=== PATIENT | female | born 1950 | race Caucasian/White ===

== ENCOUNTER → 2018-01-27 10:19 | Outpatient (CLI) | payer MEDICARE, SELFPAY ==
--- NOTE | 2018-01-27 10:26 | RAD_ITS ---
STUDY: X-RAY - LEFT KNEE REASON FOR EXAM: Female, 67 years old. POSTERIOR BAKERS CYST PER PT, NKI, PAIN TECHNIQUE: 4 view(s) of the knee. COMPARISON: None. FINDINGS: Normal visualized distal femur. Normal visualized proximal tibia and fibula. Normal proximal tibiofibular articulation. 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 There is mild degenerative arthrosis of the lateral femorotibial compartment. There is mild degenerative arthrosis of the patellofemoral articulation. The soft tissue structures are unremarkable. RAD/Knee 4 or More Views IMPRESSION: Degenerative arthrosis. Electronically Signed: Alexsander Nails MD at 19:20 EDT , Service support ,
--- NOTE | 2018-01-27 10:26 | RAD_ITS ---
STUDY: X-RAY - LEFT TIBIA AND FIBULA REASON FOR EXAM: Female, 67 years old. Pain TECHNIQUE: 2 view(s) of the tibia and fibula were obtained. COMPARISON: None. FINDINGS: Normal visualized tibia. Normal visualized fibula. Degenerative arthrosis in the knee joint. Calcaneal spurs The soft tissue structures are unremarkable. RAD/Tibia & Fibula 2 Views IMPRESSION: No demonstrated fracture or suspicious osseous lesion Electronically Signed: Kapil Renner MD at 11:21 EDT , Service support ,
--- NOTE | 2018-01-27 10:26 | RAD_ITS ---
STUDY: X-RAY - LEFT ANKLE REASON FOR EXAM: Female, 67 years old. ANTERIOR AND MEDIAL PAIN, NKI TECHNIQUE: 3 view(s) of the ankle. COMPARISON: None. FINDINGS: Normal visualized distal tibia and fibula. Normal medial and lateral malleoli. Normal tibiotalar articulation and ankle mortise. There is a calcaneal spur. The visualized subtalar, talonavicular, calcaneocuboid and tarsal articulations are normal. There is soft tissue swelling around the ankle. RAD/Ankle min 3 Views IMPRESSION: There is a calcaneal spur. There is soft tissue swelling around the ankle. Electronically Signed: Alexsander Nails MD at 17:31 EDT , Service support ,
[2018-01-27 12:20] LABS: Absolute Lymphocyte Count 1.54 X10^3/ul (0.83-4.51); Absolute Neutrophil Count 3.2 X10^3/uL (2.0-7.7); Basophil# 0.03 X10^3/uL; Basophil% 0.5 % (0-1); Eosinophil# 0.23 X10^3/uL; Eosinophils% 4.2 % (0-5); Hematocrit 43.4 % (37-47); Hemoglobin 14.4 g/dl (12.0-15.0); Lymphocyte # 1.54 X10^3/ul (4.0); Lymphocyte % 28.1 % (19-41); Mean Corp Hgb Conc 33.2 g/gl (32-36); Mean Corpuscular Hgb 29.9 pg (27.0-32.0); Mean Corpuscular Volume 90.2 fL (81-99); Mean Platelet Vol. 10.5 fl (6.2-12.0); Monocyte# 0.45 X10^3/uL; Monocyte% 8.2 % (0-10); Neutrophil # 3.22 X10^3/uL (2.7-7.7); Neutrophil % 58.6 % (47-70); Platelet Count 184 K/mm3 (150-450); RBC Distribution Width CV 14.8 % (11.6-14.6); RBC Distribution Width SD 48.2 fl (35.1-43.9); Red Blood Count 4.81 M/mm3 (4.2-5.4); White Blood Count 5.5 K/mm3 (4.4-11.0)
[2018-01-27 12:21] LABS: POSITIVE COUNT NO; POSITIVE DIFFERENTIAL NO; POSITIVE MORPHOLOGY NO
[2018-01-27 12:45] LABS: D-Dimer Quantitative (DVT/PE) 0.72 FEU/ug/m (0.27-0.49)
[2018-01-27 12:55] LABS: ALB/GLOB Ratio 1.2 RATIO (0.9-2.4); AST(SGOT) 24 U/L (15-37); Alanine Aminotransfer ALT/SGPT 33 U/L (13-56); Albumin, Serum 4.1 g/dL (3.2-5.0); Alkaline Phosphatase 97 U/L (45-117); Anion Gap 9 (5-15); BUN 18 mg/dL (7-18); BUN/Creat Ratio 21.7 RATIO (10-20); Calcium,Total 9.3 mg/dL (8.5-10.1); Chloride 106 mmol/L (98-107); Cholesterol 156 mg/dL (200); Creatinine, Serum 0.83 mg/dL (0.55-1.02); EST Glomerular Filtration Rate 73 mL/min (>60); Est Glom Filt Rate - Afr Amer 88 mL/min (>60); Globulin 3.5 g/dL (2.2-4.2); Glucose 86 mg/dL (74-106); High Density Lipoprotein 37 mg/dL; Potassium 4.4 mmol/L (3.5-5.1); Protein, Total 7.6 g/dL (6.4-8.2); Sodium Level 140 mmol/L (136-145); Triglycerides 187 mg/dL; Very Low Density Lipoprotein 37 mg/dL (5-40)
[2018-01-28 16:10] LABS: Alkaline Phosphatase, Serum 88 IU/L (39-117); Bone Fraction 61 % (14-68); Liver Fraction 27 % (18-85)
[2018-01-29 11:12] LABS: Intestinal Fraction 12 % (0-18)
== END ==
PROVIDERS: Family Provider Family Medicine; PCP Family Medicine; Visit Provider Family Medicine
DX: M25.562 Pain in left knee (principal); M25.572 Pain in left ankle and joints of left foot; M79.605 Pain in left leg; R60.9 Edema, unspecified; I10 Essential (primary) hypertension; R74.8 Abnormal levels of other serum enzymes
CPT/HCPCS: 36415; 73564; 73590; 73610; 80053; 80061; 84075; 84080; 85025; 85379

== ENCOUNTER → 2018-01-27 15:22 | Outpatient (CLI) | payer MEDICARE, SELFPAY ==
--- NOTE | 2018-01-27 15:33 | VDLE_ITS ---
Reason For Study: ELEVATED D DIMER Procedure LEFT Exam performed in department. CFV is compressible, spontaneous, phasic, A preliminary report was called and/or competent, and demonstrates normal faxed to Dr Dexter. augmentation. FV is compressible, spontaneous, phasic, competent and demonstrates normal augmentation. POP V is compressible, spontaneous, phasic, competent and demonstrates normal augmentation. T/P Trunk is compressible. PTV is compressible. LT PerV is compressible. Left GSV has been ablated above the knee. Left GSV below knee is compressible . Left leg varicosities are partially compressible with residual thrombophlebitis present. Interpretation Summary Deep veins of the left lower extremity are patent and compressible segmentally. There is no evidence of left lower extremity deep vein thrombosis. Valvular competence appears intact within the proximal deep venous system on the left . The left great saphenous vein is absent above the knee, consistent with a prior endothermal abation procedure. The left great saphenous vein is patent and compressible below the knee. Chronic venous changes are noted in superficial varicosities in the left lower extremity. Ordering Physician: Dashawn Dexter Referring Physician: Dashawn Dexter Performed By: Kristina Fong, ANGE, RVT
== END ==
PROVIDERS: Family Provider Family Medicine; PCP Family Medicine; Visit Provider Family Medicine
DX: M79.605 Pain in left leg (principal); R79.89 Other specified abnormal findings of blood chemistry; M25.562 Pain in left knee; M25.572 Pain in left ankle and joints of left foot; R60.9 Edema, unspecified; I10 Essential (primary) hypertension; R74.8 Abnormal levels of other serum enzymes
CPT/HCPCS: 36415; 73564; 73590; 73610; 80053; 80061; 84075; 84080; 85025; 85379; 93971

== ENCOUNTER → 2018-07-20 07:33 | Outpatient (CLI) | payer MEDICARE, SELFPAY ==
[2017-12-16 09:14] VITALS: BMI 29.5
--- NOTE | 2018-07-20 07:50 | RAD_ITS ---
STUDY: X-RAY CHEST REASON FOR EXAM: Female, 67 years old. Cough for 2 months. TECHNIQUE: PA and lateral views of the chest. COMPARISON: CT of the chest, December 06, 2015. Chest, October 08, 2015. FINDINGS: The lungs are mildly hyperexpanded. There is a stable small calcified granuloma in the periphery of the right lung. No new masses or infiltrates are present. There is no demonstrated pleural abnormality. Normal size heart. Normal mediastinum and tobias. Normal visualized pulmonary arteries. Normal visualized aortic arch and descending thoracic aorta. Normal visualized thoracic spine. Normal visualized ribs, clavicles, and shoulders. There is no demonstrated abnormality of the visualized soft tissue structures of the upper abdomen. RAD/Chest PA and Lateral IMPRESSION: Old granulomatous disease without acute cardiopulmonary process or major interval change. Electronically Signed: Best Jon DO at 17:29 EST Tel [phone], Service support ,
[2018-07-20 10:49] LABS: Absolute Neutrophil Count 3.9 X10^3/uL (2.0-7.7); Basophil# 0.08 X10^3/uL; Basophil% 1.1 % (0-1); Eosinophils% 5.4 % (0-5); Hematocrit 43.5 % (37-47); Hemoglobin 14.2 g/dl (12.0-15.0); Lymphocyte % 33.6 % (19-41); Mean Corp Hgb Conc 32.6 g/gl (32-36); Mean Corpuscular Hgb 29.9 pg (27.0-32.0); Mean Corpuscular Volume 91.6 fL (81-99); Mean Platelet Vol. 10.7 fl (6.2-12.0); Monocyte# 0.53 X10^3/uL; Monocyte% 7.1 % (0-10); Neutrophil % 52.5 % (47-70); POSITIVE COUNT NO; POSITIVE DIFFERENTIAL NO; POSITIVE MORPHOLOGY NO; Platelet Count 206 K/mm3 (150-450); RBC Distribution Width CV 14.8 % (11.6-14.6); RBC Distribution Width SD 48.7 fl (35.1-43.9); Red Blood Count 4.75 M/mm3 (4.2-5.4); White Blood Count 7.4 K/mm3 (4.4-11.0)
[2018-07-20 11:08] LABS: ALB/GLOB Ratio 1.1 RATIO (0.9-2.4); AST(SGOT) 21 U/L (15-37); Alanine Aminotransfer ALT/SGPT 32 U/L (13-56); Albumin, Serum 3.7 g/dL (3.2-5.0); Alkaline Phosphatase 91 U/L (45-117); Anion Gap 7 (5-15); BUN 14 mg/dL (7-18); BUN/Creat Ratio 16.1 RATIO (10-20); Calcium,Total 8.8 mg/dL (8.5-10.1); Chloride 106 mmol/L (98-107); Creatinine, Serum 0.87 mg/dL (0.55-1.02); EST Glomerular Filtration Rate 68 mL/min (>60); Est Glom Filt Rate - Afr Amer 83 mL/min (>60); Globulin 3.5 g/dL (2.2-4.2); Glucose 112 mg/dL (74-106); Potassium 4.2 mmol/L (3.5-5.1); Protein, Total 7.2 g/dL (6.4-8.2); Sodium Level 143 mmol/L (136-145)
--- OUTSIDE RECORDS SUMMARY | 2018-09-05 05:38 | XMS RPT_ITS ---
:1950 Author Organization OHIP Care Team Providers Name Role Phone Ivan Dexter Attending Unavailable Ivan Dexter Referring Unavailable Ivan Dexter Primary Care Unavailable Ivan Dexter Attending Unavailable Ivan Dexter Referring Unavailable Ivan Dexter Primary Care Unavailable Ivan eDxter Attending Unavailable Ivan Dexter Referring Unavailable Ivan Dexter Primary Care Unavailable Nguyen Kincaid D.C. Attending Unavailable Ivan Dexter Referring Unavailable Ivan Dexter Primary Care Unavailable Nguyen Kincaid D.C. Attending Unavailable Ivan Dexter Referring Unavailable Nguyen Kincaid D.C. Attending Unavailable Ivan Dexter Referring Unavailable Ivan Dexter Primary Care Unavailable Nguyen Kincaid D.C. Attending Unavailable Ivan Dexter Referring Unavailable Ivan Dexter Primary Care Unavailable DossiNguyen ribera D.C. Attending Unavailable Ivan Dexter Referring Unavailable Ivan Dexter Primary Care Unavailable PROBLEMS PROBLEMS DATE TYPE CONDITION / CODE ATTENDING STATUS SOURCE 07/20/2018 Unknown R05 - Cough / Ivan Dexter Active [facility] R05(ICD-10[facility] Rep[facility] 07/20/2018 Unknown R06.00 - Dyspnea, Ivan Dexter Active [facility] unspecified / Community R06.00(ICD-10) Hospital Repository 07/20/2018 Unknown R74.8 - Abnormal Ivan Dexter [facility] levels of other Community serum enzymes / Hospital R74.8(ICD-10) Repository 01/27/2018 Unknown M25.562 - Pain in Ivan Dexter [facility] left knee / Community M25.562(ICD-10) Hospital Repository 01/27/2018 Unknown M25.572 - Pain in Ivan Dexter Active [facility] left ankle and Community joints of left foot Hospital / M25.572(ICD-10) Repository 01/27/2018 Unknown M79.605 - Pain in Ivan Dexter Active [facility] left leg / Community M79.605(ICD-10) Hospital Repository 01/27/2018 Unknown R60.9 - Edema, Ivan Dexter Active [facility] unspecified / Community R60.9(ICD-10) Hospital Repository 01/27/2018 Unknown I10 - Essential Ivan Dexter [facility] (primary) Community hypertension / Hospital I10(ICD-10) Repository 12/17/2017 Unknown M99.05 - Segmental Dossie, Nguyen Active [facility] and somatic [facility] Community dysfunction of Hospital pelvic region / Repository M99.05(ICD-10) 12/17/2017 Unknown M99.01 - Segmental Dossie, Nguyen Active [facility] and somatic [facility] dysfunction of Hospital cervical region / Repository M99.01(ICD-10) 12/17/2017 Unknown M99.02 - Segmental Dossie, Nguyen Active [facility] and somatic [facility] dysfunction of Hospital thoracic region / Repository M99.02(ICD-10) 12/17/2017 Unknown M99.03 - Segmental DossieNguyen Active [facility] and somatic [facility] dysfunction of Hospital lumbar region / Repository M99.03(ICD-10) 12/17/2017 Unknown M51.36 - Other Dossie, Nguyen Active [facility] intervertebral disc [facility] degeneration, [facility][1] region / Repository M51.36(ICD-10) PROCEDURES PROCEDURES No Procedure Records FoundRESULTS RESULTS CBC W/DIFF, AUTOMATED Collected: 07/20/2018 Status: F Source: [place] 7:39 AM [facility] REPOSITORY TYPE CODE TESTS RESULT OUT OF RANGE REFERENCE UNITS LAB L100.1000 4.4-11.0 K/mm3 Normal WBC 7.4 LAB L100.1200 4.2-5.4 M/mm3 Normal RBC 4.75 LAB L100.1300 12.0-15.0 g/dl Normal HGB 14.2 LAB L100.1400 37-47 % Normal HCT 43.5 LAB L100.1500 81-99 fL Normal MCV 91.6 LAB L100.1600 27.0-32.0 pg Normal MCH 29.9 LAB L100.1700 32-36 g/gl Normal MCHC 32.6 LAB L100.1810 11.6-14.6 % High RDW CV 14.8 LAB L100.1820 35.1-43.9 fl High RDW SD 48.7 LAB L100.1900 150-450 K/mm3 Normal PLT 206 LAB L100.2000 6.2-12.0 fl Normal MPV 10.7 LAB L100.2100 47-70 % Normal NEUT% 52.5 LAB L100.2200 19-41 % Normal LY% 33.6 LAB L100.2300 0-10 % Normal MONO% 7.1 LAB L100.2400 0-5 % High EO% 5.4 LAB L100.2500 0-1 % High BASO% 1.1 LAB L100.2550 0.0-0.9 % Normal IM GRAN % 0.300 Result Comment: IG% - Immature Granulocytes (promyelocytes, myelocytes and metamyelocytes) > 1% indicates that a LEFT SHIFT is Present. LAB L100.2620 2.0-7.7 X10 3/uL Normal Absolute Neut 3.9 LAB L100.2720 0.83-4.51 X10 3/ul Normal Absolute Lymph 2.50 Performed By: #### L100.0100 #### [facility] [address] [place], [address] COMPREHENSIVE METABOLIC Collected: 07/20/2018 Status: F Source: [place] REDD 7:39 AM [facility] REPOSITORY TYPE CODE TESTS RESULT OUT OF RANGE REFERENCE UNITS LAB L501.0100 74-106 mg/dL High GLU 112 Result Comment: Fasting Glucose result from 100 to 125 mg/dL suggests IMPAIRED HOMEOSTASIS per A.D.A. criteria. Please note revised GLUCOSE reference range effective 2017. LAB L501.1000 7-18 mg/dL Normal BUN 14 LAB L501.1100 0.55-1.02 mg/dL Normal CREAT,SERUM 0.87 Result Comment: The validity of the calculated GFR AND GFRAA in patients over 70 years has not been determined. Clinical correlation is essential. LAB L501.1110 >60 mL/min Normal EST GFR 68 Result Comment: Non- GFR Calc LAB L501.1115 >60 mL/min Normal EST GFR - AA 83 Result Comment: GFR Calc LAB L501.1300 10-20 RATIO Normal BUN/CRE 16.1 LAB L501.1500 6.4-8.2 g/dL T Normal PROT 7.2 LAB L501.1800 3.2-5.0 g/dL Normal ALB 3.7 LAB L501.1950 2.2-4.2 g/dL Normal GLOB 3.5 LAB L501.2000 0.9-2.4 RATIO Normal A/G 1.1 LAB L501.2200 8.5-10.1 mg/dL CA Normal 8.8 LAB L501.4100 15-37 U/L Normal AST 21 LAB L501.4305 45-117 U/L Normal ALK P 91 LAB L501.4405 13-56 U/L Normal ALT 32 LAB L501.4600 0.20-1.00 mg/dL T Normal BILI 0.90 LAB L501.5300 136-145 mmol/L NA Normal 143 LAB L501.5600 3.5-5.1 mmol/L K Normal 4.2 LAB L501.5900 98-107 mmol/L CL Normal 106 LAB L501.6100 21.0-32.0 mmol/L Normal CO2 30.0 LAB L501.6200 5-15 Normal GAP 7 Performed By: #### L500.4050 #### [facility] [address] [place], [address] Observed: 07/20/2018 Status: F Source: [place] CULTURE, SPUTUM 7:39 AM [facility] REPOSITORY Gram Stain Gram Stain 3+ Gram positive rods 2+ Gram positive cocci 1+ Epithelial cells Resp. Culture Mixed normal respiratory armin. No Streptococcus pneumoniae, beta-hemolytic Streptococcus or Staphylococcus aureus isolated. Performed By: #### M100.0800 #### [facility] [address] [facility] [place], [address] CHEST PA AND LATERAL Observed: 07/20/2018 Status: F Source: [place] 7:36 AM [facility] REPOSITORY [facility] Imaging Services [address] [place] [address] Chest PA and Lateral MR#: [id number] Acct: [id number] Name: JOSSTOMEKA Tiffany Rep #: [id number] : 1950 F 67 From: Best Jon DO PCP: Ivan Dexter DO Status: REG CLI Study: Chest PA and Lateral Date of Exam: 07/20/18 Exam# [id number] Ordering Dr: Ivan Dexter DO STUDY: X-RAY CHEST REASON FOR EXAM: Female, 67 years old. Cough for 2 months. TECHNIQUE: PA and lateral views of the chest. COMPARISON: CT of the chest, December 06, 2015. Chest, October 08, 2015. FINDINGS: The lungs are mildly hyperexpanded. There is a stable small calcified granuloma in the periphery of the right lung. No new masses or infiltrates are present. There is no demonstrated pleural abnormality. Normal size heart. Normal mediastinum and tobias. Normal visualized pulmonary arteries. Normal visualized aortic arch and descending thoracic aorta. Normal visualized thoracic spine. Normal visualized ribs, clavicles, and shoulders. There is no demonstrated abnormality of the visualized soft tissue structures of the upper abdomen. RAD/Chest PA and Lateral IMPRESSION: Old granulomatous disease without acute cardiopulmonary process or major interval change. Electronically Signed: Best Jon DO at 17:29 EST Tel [phone], Service support , CC: Ivan Dexter DO Hardwood Floor Installer: Signed PROGRESS Observed: 03/29/2018 Status: COMPLETED Source: [place] 6:32 PM [facility] REPOSITORY HNO ID: [id number] Author: Mina Allen (Anju) Misael Service: (none) Author Type: Nurse Practitioner Type: Progress Notes Filed: 03/29/2018 6:37 PM Note Text: Subjective HPI Patient presents with: Rash: under breast, abdominal area and legs, itching and burning x 1 week Denies known yard work. Denies changes to soaps, detergents, lotions, perfumes, new medications, or exposures to known allergens. Rubbing alcohol and pink suave otc with no relief. ROS All other reviewed and negative other than HPI. PAST MEDICAL HISTORY Diagnosis Date - Abdominal pain, generalized right and left side in center - Abdominal pain, left lower quadrant - Diverticulosis of colon (without mention of hemorrhage) - Internal hemorrhoids without mention of complication - Ventral hernia with obstruction PAST SURGICAL HISTORY Procedure Laterality Date - APPENDECTOMY - COLONOSCOP W/ OR W/O [facility] SPEC 01/26/08 - CORRECT BUNION,OTHR METHODS X'S 2 - LIGATE FALLOPIAN TUBE Tubal ligation - REMOVAL OF OVARY(S) Oophorectomy - REPAIR EPIGASTRIC HERNIA,CRISTINE 07/01/2005 - REPAIR INCIS HERNIA W MESH 07/01/2005 ALLERGIES Augmentin [Amoxicillin-Pot Clavulanate]; Biaxin [Clarithromycin]; Vancomycin MEDICATIONS loratadine(CLARITIN 10 MG TAB) Take one(1) tablet daily as needed for allergy symptoms. TOPROL XL 50 MG 24 HR TAB Take one(1) tablet daily. nystatin (MYCOSTATIN) cream Use four times daily as needed. triamcinolone acetonide (KENALOG) 0.1 % cream Apply 1 application to affected area three times daily for 10 days. Apply sparingly to area for rash/itching. FAMILY HISTORY Problem Relation Age of Onset - Alcohol/Drug Father - Heart Father - Hypertension Mother - Stroke Mother Social History Substance Use Topics - Smoking status: Never Smoker - Smokeless tobacco: Never Used - Alcohol use Yes Comment: 1 BEER Q WEEK Objective Physical Exam Skin: Nursing note and vitals reviewed. ASSESSMENT/PLAN: 1. Rash - ICD9: 782.1, ICD10: R21 -suspect 2 different rashes -Skin yeast and contact dermatitis -Nystatin -Triamcinolone cream -F/u with pcp in 3-5 days or sooner if symptoms are not improving or worsening Prescription instructions reviewed with patient as applicable. Patient advised if symptoms do not improve or if symptoms worsen sooner, to contact their primary care physician. Potential red flag symptoms discussed with the patient. Reviewed appropriate action plan to take if red flag symptoms occur. Patient agreeable to treatment plan. Mina Corrigan APRN.CRULLER MAKER MACHINE CNOV Observed: 03/29/2018 Status: COMPLETED Source: [place] 6:15 PM [facility] REPOSITORY Office Visit (WSTR) TOMEKA COREAS ([id number]) 1950 F Date Time Provider Department 03/29/18 6:15 PM MINA CORRIGAN (ARMOR OFFICER) [facility] During your visit today, we recorded the following information about you: Temperature Pulse Respiration Blood pressure 97.7 degrees 76/minute 16/minute 120/76 Weight 81.2 kg Mina Corrigan APRN.CRULLER MAKER MACHINE 03/29/2018 6:37 PM Signed Subjective HPI Patient presents with: Rash: under breast, abdominal area and legs, itching and burning x 1 week Denies known yard work. Denies changes to soaps, detergents, lotions, perfumes, new medications, or exposures to known allergens. Rubbing alcohol and pink suave otc with no relief. ROS All other reviewed and negative other than HPI. PAST MEDICAL HISTORY Diagnosis Date - Abdominal pain, generalized right and left side in center - Abdominal pain, left lower quadrant - Diverticulosis of colon (without mention of hemorrhage) - Internal hemorrhoids without mention of complication - Ventral hernia with obstruction PAST SURGICAL HISTORY Procedure Laterality Date - APPENDECTOMY - COLONOSCOP W/ OR W/O [facility] SPEC 01/26/08 - CORRECT BUNION,OTHR METHODS X'S 2 - LIGATE FALLOPIAN TUBE Tubal ligation - REMOVAL OF OVARY(S) Oophorectomy - REPAIR EPIGASTRIC HERNIA,CRISTINE 07/01/2005 - REPAIR INCIS HERNIA W MESH 07/01/2005 ALLERGIES Augmentin [Amoxicillin-Pot Clavulanate]; Biaxin [Clarithromycin]; Vancomycin MEDICATIONS loratadine(CLARITIN 10 MG TAB) Take one(1) tablet daily as needed for allergy symptoms. TOPROL XL 50 MG 24 HR TAB Take one(1) tablet daily. nystatin (MYCOSTATIN) cream Use four times daily as needed. triamcinolone acetonide (KENALOG) 0.1 % cream Apply 1 application to affected area three times daily for 10 days. Apply sparingly to area for rash/itching. FAMILY HISTORY Problem Relation Age of Onset - Alcohol/Drug Father - Heart Father - Hypertension Mother - Stroke Mother Social History Substance Use Topics - Smoking status: Never Smoker - Smokeless tobacco: Never Used - Alcohol use Yes Comment: 1 BEER Q WEEK Objective Physical Exam Skin: Nursing note and vitals reviewed. ASSESSMENT/PLAN: 1. Rash - ICD9: 782.1, ICD10: R21 -suspect 2 different rashes -Skin yeast and contact dermatitis -Nystatin -Triamcinolone cream -F/u with pcp in 3-5 days or sooner if symptoms are not improving or worsening Prescription instructions reviewed with patient as applicable. Patient advised if symptoms do not improve or if symptoms worsen sooner, to contact their primary care physician. Potential red flag symptoms discussed with the patient. Reviewed appropriate action plan to take if red flag symptoms occur. Patient agreeable to treatment plan. Mina Corrigan APRN.CRULLER MAKER MACHINE Referring Provider: SELF [200] Allergies As of Date: 03/29/2018 Noted Allergy Reaction AUGMENTIN (AMOXICILLIN-POT CLAVUL*06/27/2005 BIAXIN (CLARITHROMYCIN) 11/29/2013 4 - Hives VANCOMYCIN 11/29/2013 9 - Itching Date Reviewed: 03/29/2018 Reviewed by: Liya Soria Ma - Fully Assessed Reason for Visit: Rash [1087] Cmt: under breast, abdominal area and legs, itching and burning x 1 week Primary Visit Diagnosis:Rash [R21] Order(s):nystatin (MYCOSTATIN) creamUse four times daily as needed.Disp: 30 gRfl: 0 triamcinolone acetonide (KENALOG) 0.1 % creamApply 1 application to affected area three times daily for 10 days. Apply sparingly to area for rash/itching.Disp: 60 gRfl: 0 Prescriptions as of 03/29/2018 Sig: * CLARITIN 10 MG TABLET Take one(1) tablet daily as n* * TOPROL XL 50 MG TABLET,EXTEND* Take one(1) tablet daily. NYSTATIN 100,000 UNIT/GRAM TO* Use four times daily as neede* TRIAMCINOLONE ACETONIDE 0.1 %* Apply 1 application to affect* Problem List As Of Date 03/29/2018 Noted Resolved VENTRAL HERNIA, RECURRENT W/O GANGRENE/OBSTRUCT*INVALID FOR* ABDOMINAL PAIN GENERALIZED [R10.84] INVALID FOR* Prescriptions ordered this encounter Disp Refills Start End NYSTATIN 100,000 UNIT/GRAM TOPICAL C* 30 g 0 03/29/2018 Sig: Use four times daily as needed. TRIAMCINOLONE ACETONIDE 0.1 % TOPICA* 60 g 0 03/29/2018 04/08/2018 Route: TOPICAL Sig: Apply 1 application to affected area three times daily for 10 days. Apply sparingly to area for rash/itching. Disposition: Return if symptoms worsen or fail to improve. Follow-up and Disposition History Recorded Encounter Status:Closed by MINA CORRIGAN on 03/29/18 VENOUS DUPLEX LOWER Observed: 02/04/2018 Status: F Source: [place] EXTREMITY 9:51 AM [facility] REPOSITORY [facility] Cardiovascular Services [address] [place] [address] Venous Duplex US, Unilateral 01/27/18 1536 MR#: [id number] Acct: [id number] Name: TOMEKA COREAS Rep #: [id number] : 1950 67 From: rPamod Peralta MD Attending Dr: Ivan Dexter DO Status: REG CLI Ordering Dr: Ivan Dexter DO Date: 01/27/18 Location: [facility] Sex: F C Admitted: Reason For Study: ELEVATED D DIMER Procedure LEFT Exam performed in department. CFV is compressible, spontaneous, phasic, A preliminary report was called and/or competent, and demonstrates normal faxed to Dr Dexter. augmentation. FV is compressible, spontaneous, phasic, competent and demonstrates normal augmentation. POP V is compressible, spontaneous, phasic, competent and demonstrates normal augmentation. T/P Trunk is compressible. PTV is compressible. LT PerV is compressible. Left GSV has been ablated above the knee. Left GSV below knee is compressible . Left leg varicosities are partially compressible with residual thrombophlebitis present. Interpretation Summary Deep veins of the left lower extremity are patent and compressible segmentally. There is no evidence of left lower extremity deep vein thrombosis. Valvular competence appears intact within the proximal deep venous system on the left . The left great saphenous vein is absent above the knee, consistent with a prior endothermal abation procedure. The left great saphenous vein is patent and compressible below the knee. Chronic venous changes are noted in superficial varicosities in the left lower extremity. Ordering Physician: Ivan Dexter Referring Physician: Ivan Dexter Performed By: Kristina Fong, ROMINACS, RVT 02/04/18 0951 Date Pramod Peralta MD CC: vIan Dexter; Ivan Dexter DO Date Dictated: 01/27/18 1536 Date Transcribed: 02/04/18 0951 Hardwood Floor Installer: Signed CBC W/DIFF, AUTOMATED Collected: 01/27/2018 Status: F Source: [place] 10:29 AM [facility] REPOSITORY TYPE CODE TESTS RESULT OUT OF RANGE REFERENCE UNITS LAB L100.1000 4.4-11.0 K/mm3 Normal WBC 5.5 LAB L100.1200 4.2-5.4 M/mm3 Normal RBC 4.81 LAB L100.1300 12.0-15.0 g/dl Normal HGB 14.4 LAB L100.1400 37-47 % Normal HCT 43.4 LAB L100.1500 81-99 fL Normal MCV 90.2 LAB L100.1600 27.0-32.0 pg Normal MCH 29.9 LAB L100.1700 32-36 g/gl Normal MCHC 33.2 LAB L100.1810 11.6-14.6 % High RDW CV 14.8 LAB L100.1820 35.1-43.9 fl High RDW SD 48.2 LAB L100.1900 150-450 K/mm3 Normal PLT 184 LAB L100.2000 6.2-12.0 fl Normal MPV 10.5 LAB L100.2100 47-70 % Normal NEUT% 58.6 LAB L100.2200 19-41 % Normal LY% 28.1 LAB L100.2300 0-10 % Normal MONO% 8.2 LAB L100.2400 0-5 % Normal EO% 4.2 LAB L100.2500 0-1 % Normal BASO% 0.5 LAB L100.2550 0.0-0.9 % Normal IM GRAN % 0.400 Result Comment: IG% - Immature Granulocytes (promyelocytes, myelocytes and metamyelocytes) > 1% indicates that a LEFT SHIFT is Present. LAB L100.2620 2.0-7.7 X10 3/uL Normal Absolute Neut 3.2 LAB L100.2720 0.83-4.51 X10 3/ul Normal Absolute Lymph 1.54 Performed By: #### L100.0100 #### [facility] [address] [place], [place], [address] D-DIMER QUANTITATIVE Collected: 01/27/2018 Status: F Source: [place] (DVT/PE) 10:29 AM [facility] REPOSITORY TYPE CODE TESTS RESULT OUT OF RANGE REFERENCE UNITS LAB L300.8000 0.27-0.49 FEU/ug/m High alert D-DIMER 0.72 QUANT Result Comment: D-Dimer ELEVATED (>0.49): Additional studies and clinical assessments are indicated to conclude diagnosis of: Deep Vein Thrombosis (DVT) or Pulmonary Embolism (PE) Performed By: #### L300.8000 #### [facility] [address] [place], [address] COMPREHENSIVE METABOLIC Collected: 01/27/2018 Status: F Source: [place] [facility] 10:29 AM [facility] REPOSITORY TYPE CODE TESTS RESULT OUT OF RANGE REFERENCE UNITS LAB L501.0100 74-106 mg/dL Normal GLU 86 Result Comment: Please note revised GLUCOSE reference range effective 2017. LAB L501.1000 7-18 mg/dL Normal BUN 18 LAB L501.1100 0.55-1.02 mg/dL Normal CREAT,SERUM 0.83 Result Comment: The validity of the calculated GFR AND GFRAA in patients over 70 years has not been determined. Clinical correlation is essential. LAB L501.1110 >60 mL/min Normal EST GFR 73 Result Comment: Non- GFR Calc LAB L501.1115 >60 mL/min Normal EST GFR - AA 88 Result Comment: GFR Calc LAB L501.1300 10-20 RATIO High BUN/CRE 21.7 LAB L501.1500 6.4-8.2 g/dL T Normal PROT 7.6 LAB L501.1800 3.2-5.0 g/dL Normal ALB 4.1 LAB L501.1950 2.2-4.2 g/dL Normal GLOB 3.5 LAB L501.2000 0.9-2.4 RATIO Normal A/G 1.2 LAB L501.2200 8.5-10.1 mg/dL CA Normal 9.3 LAB L501.4100 15-37 U/L Normal AST 24 LAB L501.4305 45-117 U/L Normal ALK P 97 LAB L501.4405 13-56 U/L Normal ALT 33 LAB L501.4600 0.20-1.00 mg/dL T Normal BILI 0.80 LAB L501.5300 136-145 mmol/L NA Normal 140 LAB L501.5600 3.5-5.1 mmol/L K Normal 4.4 LAB L501.5900 98-107 mmol/L CL Normal 106 LAB L501.6100 21.0-32.0 mmol/L Normal CO2 25.0 LAB L501.6200 5-15 Normal GAP 9 Performed By: #### L500.4050, L500.4100 #### [facility] [address] [place], [place], [address] LIPID PROFILE Collected: 01/27/2018 Status: F Source: [place] 10:29 AM [facility] REPOSITORY TYPE CODE TESTS RESULT OUT OF RANGE REFERENCE UNITS LAB L501.4900 200 mg/dL Normal CHOL 156 Result Comment: <200 mg/dL Desirable 200-240 mg/dL Borderline >240 mg/dL High Risk LAB L501.5000 mg/dL Normal TRIG 187 Result Comment: The drugs N-Acetylcysteine and Metamizole may falsely depress this assay. Serum Triglycerides Reference Interval Normal <150 mg/dL Borderline high 150 - 199 mg/dL High 200 - 499 mg/dL Very High > or = 500 mg/dL LAB L501.6400 mg/dL Low HDL 37 Result Comment: The drugs N-Acetylcysteine and Metamizole may falsely depress this assay. Reference Range HDL <40 mg/dL Low HDL Cholesterol HDL >or= 60 mg/dL High HDL Cholesterol LAB L501.6500 0-130 mg/dL Normal LDL 82 LAB L501.6600 5-40 mg/dL Normal VLDL 37 Performed By: #### L500.4050, L500.4100 #### [facility] [address], [place], [address] ALK PHOS ISOENZYME Collected: 01/27/2018 Status: F Source: [place] 10:29 AM [facility] REPOSITORY TYPE CODE TESTS RESULT OUT OF RANGE REFERENCE UNITS LAB L3250.0200 39-117 IU/L ALK Normal PHOS, S 88 LAB L3250.0300 18-85 % LIVER Normal FRACTION 27 LAB L3250.0400 14-68 % BONE Normal FRACTION 61 LAB L3250.0500 0-18 % Normal INTESTINAL FRAC 12 Result Comment: Performed at: [address] [id number] Lamp Stack Developer: Bran Samuel PhD, Phone: [phone] Performed By: #### L3250.0100 #### [facility] (refer to report for specific site) refer to report for address and phone number ANKLE MIN 3 VIEWS Observed: 01/27/2018 Status: F Source: [place] 10:26 AM [facility] REPOSITORY [facility] Imaging Services [address] [place] [address] Ankle min 3 Views MR#: [id number] Acct: [id number] Name: TOMEKA COREAS Rep #: [id number] : 1950 F 67 From: Alexsander Nails MD PCP: Ivan Dexter DO Status: REG CLI Study: Ankle min 3 Views Date of Exam: 01/27/18 Exam# [id number] Ordering Dr: Ivan Dexter DO STUDY: X-RAY - LEFT ANKLE REASON FOR EXAM: Female, 67 years old. ANTERIOR AND MEDIAL PAIN, NKI TECHNIQUE: 3 view(s) of the ankle. COMPARISON: None. FINDINGS: Normal visualized distal tibia and fibula. Normal medial and lateral malleoli. Normal tibiotalar articulation and ankle mortise. There is a calcaneal spur. The visualized subtalar, talonavicular, calcaneocuboid and tarsal articulations are normal. There is soft tissue swelling around the ankle. RAD/Ankle min 3 Views IMPRESSION: There is a calcaneal spur. There is soft tissue swelling around the ankle. Electronically Signed: Alexsander Nails MD at 17:31 EDT , Service support , CC: Ivan Dexter DO Hardwood Floor Installer: Signed KNEE 4 OR MORE Observed: 01/27/2018 Status: F Source: [place] VIEWS 10:26 AM [facility] REPOSITORY [facility] Imaging Services [address] [place] [address] Knee 4 or More Views MR#: [id number] Acct: [id number] Name: TOMEKA COREAS Rep #: [id number] : 1950 F 67 From: Alexsander Nails MD PCP: Ivan Dexter DO Status: REG CLI Study: Knee 4 or More Views Date of Exam: 01/27/18 Exam# [id number] Ordering Dr: Ivan Dexter DO STUDY: X-RAY - LEFT KNEE REASON FOR EXAM: Female, 67 years old. POSTERIOR BAKERS CYST PER PT, NKI, PAIN TECHNIQUE: 4 view(s) of the knee. COMPARISON: None. FINDINGS: Normal visualized distal femur. Normal visualized proximal tibia and fibula. Normal proximal tibiofibular articulation. 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 There is mild degenerative arthrosis of the lateral femorotibial compartment. There is mild degenerative arthrosis of the patellofemoral articulation. The soft tissue structures are unremarkable. RAD/Knee 4 or More Views IMPRESSION: Degenerative arthrosis. Electronically Signed: Alexsander Nails MD at 19:20 EDT , Service support , CC: Ivan Dexter DO Hardwood Floor Installer: Signed TIBIA AND FIBULA Observed: 01/27/2018 Status: F Source: [place] 2 VIEWS 10:26 AM [facility] REPOSITORY [facility] [facility] [address] [place] [address] Tibia AND Fibula 2 Views MR#: [id number] Acct: [id number] Name: TOMEKA COREAS Rep #: [id number] : 1950 F 67 From: Teddy Renner MD PCP: Ivan Dexter DO Status: REG CLI Study: Tibia AND Fibula 2 Views Date of Exam: 01/27/18 Exam# [id number] Ordering Dr: Ivan Dexter DO STUDY: X-RAY - LEFT TIBIA AND FIBULA REASON FOR EXAM: Female, 67 years old. Pain TECHNIQUE: 2 view(s) of the tibia and fibula were obtained. COMPARISON: None. FINDINGS: Normal visualized tibia. Normal visualized fibula. Degenerative arthrosis in the knee joint. Calcaneal spurs The soft tissue structures are unremarkable. 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 Age/Sex: 67/F [place] [facility] [place]: Signed Intake Vital Signs12/16/17 Height 5 ft 5.5 in 12/16/17 Weight: 180 lb 12/16/17 Body Mass Index (BMI) 29.5 Intake Visit Reasons: Back pain Chief Complaint: back pain Is patient in pain?: Yes Allergies clarithromycin [From Biaxin] Allergy (Verified 01/25/14 13:01) Hives vancomycin Allergy (Verified 01/25/14 13:01) Itching amoxicillin trihydrate [From Augmentin] Adverse Reaction (Verified 01/25/14 13:01) Upset Stomach potassium clavulanate [From Augmentin] Adverse Reaction (Verified 01/25/14 13:01) Upset Stomach Medications Lisinopril [Zestril] 20 mg PO DAILY 06/07/13 [History Confirmed 01/25/14] Metoprolol Tartrate [Lopressor] 25 mg PO BID 06/07/13 [History Confirmed 01/25/14] Loratadine [Claritin] 10 mg PO DAILY 01/25/14 [History Confirmed 01/25/14] Docusate Sodium [Colace] 100 mg PO BID PRN PRN #10 cap 02/01/14 [Rx] Hydrocodone Bitart/Apap 5-325 [Kingman 5/325] 1 - 2 tab PO Q6H PRN PRN #30 tab 02/01/14 [Rx] proMETHazine tablet [Phenergan] 25 mg PO Q4H PRN PRN #10 tab 02/01/14 [Rx] spironolactone 25 mg tablet 25 mg PO QAM 11/17/17 [History Confirmed 11/17/17] PFSH Medical History Hypertension (Chronic) Social History Smoking Status: Never smoker HPI Back pain: Chief Complaint: back pain Visit Number: 4 Details: TOMEKA COREAS is a 67 year old F who presents with decreased low back pain. She states that recently she has been golfing with no increased pain. While at work the patient has been wearing high rise compression underwear which helps decrease the pain when bending, and twisting. Today Tomeka rates her pain a 1/10 and describes it as a slight ache banding across the low back, the pain comes and goes with no numbness, tingling, or radiculopathy. Location: low back Duration: intermittent Aggravating or associated factors: bending, lifting and twisting Relieving factors: chiro, compression Pain Quality: aching, dull Exam Musc General: Yes normal posture, joint tenderness (T10, T11, T12, L3-L5, L SI) and decreased ROM; no normal gait (favoring left foot) Thoracic/Lumbar Spine: thor and lumb spine abnorm to inspection (L short leg (.25in)), Lasegue's sign positive on the left, pain with thoraco-lumbar ROM (improving) with forward flexion, with lateral flexion to the right and with lateral flexion to the left, paraspinal tenderness (slightly improved) on the left, thoraco-lumbar ROM limited (slightly improved) with forward flexion, thoraco-lumbar spasm (slightly improved) on the left in the mid lumbar and in the lower lumbar and bilaterally in the lower thoracic, straight leg raise positive left: at 30 degrees Office Procedures Chiropractic Treatments Procedures Manipulation: 3-4 regions (T10, L3, L5, LIL) Assessment AND Plan 1. Back pain M54.9 2. Segmental and somatic dysfunction of pelvic region M99.05 Orders Orders: 3. Segmental and somatic dysfunction of thoracic region M99.02 Orders Orders: 4. Segmental and somatic dysfunction of lumbar region M99.03 Orders Orders: 5. DDD (degenerative disc disease), lumbar M51.36 Orders Orders: Plan Detail Other Orders Orders: Additional Comments Patient has shown positive improvement with regard to decreased pain and symptom stabilization. Release patient to PRN. Goals Decrease pain/radiculopathy Increase ability to stand/walk Barriers DDD Follow Up PRN Coding Level of Care Code No Charge Diagnoses Back pain M54.9 Segmental and somatic dysfunction of pelvic region M99.05 Segmental and somatic dysfunction of thoracic region M99.02 Segmental and somatic dysfunction of lumbar region M99.03 DDD (degenerative disc disease), lumbar M51.36 Additional Codes Procedures - Manipulation: 3-4 regions (31701) 12/17/17 1530 <Electronically signed by Nguyen Whyte D.C.> Date Nguyen Whyte D.C. Cosigner Signature: Date (if applicable) CC: CHIROPRACTIC REPORT Observed: 11/24/2017 Status: F Source: [place] 1:24 PM [facility] [address] [place] [address] OFFICE VISIT Date of Service: 11/24/17 MR#: [id number] Acct: [id number] Name: TOMEKA COREAS Rep #: [id number] : 1950 Provider: Nguyen Whyte D.C. Age/Sex: 67/F Location[place] [facility] Status: Signed Intake Vital Signs11/24/17 Height 5 ft 5.5 in 11/24/17 Weight: 180 lb 11/24/17 Body Mass Index (BMI) 29.5 Intake Visit Reasons: back pain Chief Complaint: L SIDED LOW BACK PAIN Is patient in pain?: Yes Allergies clarithromycin [From Biaxin] Allergy (Verified 01/25/14 13:01) Hives vancomycin Allergy (Verified 01/25/14 13:01) Itching amoxicillin trihydrate [From Augmentin] Adverse Reaction (Verified 01/25/14 13:01) Upset Stomach potassium clavulanate [From Augmentin] Adverse Reaction (Verified 01/25/14 13:01) Upset Stomach Medications Lisinopril [Zestril] 20 mg PO DAILY 06/07/13 [History Confirmed 01/25/14] Metoprolol Tartrate [Lopressor] 25 mg PO BID 06/07/13 [History Confirmed 01/25/14] Loratadine [Claritin] 10 mg PO DAILY 01/25/14 [History Confirmed 01/25/14] Docusate Sodium [Colace] 100 mg PO BID PRN PRN #10 cap 02/01/14 [Rx] Hydrocodone Bitart/Apap 5-325 [Kingman 5/325] 1 - 2 tab PO Q6H PRN PRN #30 tab 02/01/14 [Rx] proMETHazine tablet [Phenergan] 25 mg PO Q4H PRN PRN #10 tab 02/01/14 [Rx] spironolactone 25 mg tablet 25 mg PO QAM 11/17/17 [History Confirmed 11/17/17] PFSH Medical History Hypertension (Chronic) Social History Smoking Status: Never smoker HPI back pain : Chief Complaint: back pain Visit Number: 3 Details: TOMEKA COREAS is a 67 year old F who presents with decreased low back pain. She states that after her last treatment she has been experiencing a painful sensation in the upper chest area when taking a deep breath in or eating, although the pain is not severe but a dull annoying ache. 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 Location: low back Duration: intermittent Aggravating or associated factors: frequent bending and lifting Relieving factors: wearing a brace and adjustment Pain Quality: aching, dull Exam Musc General: Yes normal posture, joint tenderness (T10, T11, T12, L3-L5, L SI) and decreased ROM; no normal gait (favoring left foot) Thoracic/Lumbar Spine: thor and lumb spine abnorm to inspection (L short leg (.25in)), Lasegue's sign positive on the left, pain with thoraco-lumbar ROM (improving) with forward flexion, with lateral flexion to the right and with lateral flexion to the left, paraspinal tenderness (slightly improved) on the left, thoraco-lumbar ROM limited (slightly improved) with forward flexion, thoraco-lumbar spasm (slightly improved) on the left in the mid lumbar and in the lower lumbar and bilaterally in the lower thoracic, straight leg raise positive left: at 30 degrees Office Procedures Chiropractic Treatments Procedures Manipulation: 3-4 regions (T10, T12, L3,L5, LIL) Assessment AND Plan Problems 1. DDD (degenerative disc disease), lumbar M51.36 2. Segmental and somatic dysfunction of lumbar region M99.03 3. Segmental and somatic dysfunction of thoracic region M99.02 4. Segmental and somatic dysfunction of pelvic region M99.05 Plan Follow up in 1 week. Orders Orders: Plan Detail Goals Decrease pain/radiculopathy Increase ability to stand/walk Barriers DDD Follow Up 1 Week Coding Level of Care Code No Charge Diagnoses DDD (degenerative disc disease), lumbar M51.36 Segmental and somatic dysfunction of lumbar region M99.03 Segmental and somatic dysfunction of thoracic region M99.02 Segmental and somatic dysfunction of pelvic region M99.05 Additional Codes Procedures - Manipulation: 3-4 regions (02064) 11/24/17 1324 <Electronically signed by Nguyen Whyte D.C.> Date Nguyen Whyte D.C. Cosign Signature: Date (if applicable) CC: CHIROPRACTIC REPORT Observed: 11/19/2017 Status: F Source: [place] 12:35 PM [facility] [address] [place] [address] OFFICE VISIT Date of Service: 11/17/17 MR#: [id number] Acct: [id number] Name: TOMEKA COREAS Rep #: [id number] : 1950 Provider: Nguyen Whyte D.C. Age/Sex: 67/F [place] [facility] [place]: Signed Intake Vital Signs11/17/17 Height 5 ft 5.5 in Intake Visit Reasons: back pain Chief Complaint: L SIDED LOW BACK PAIN Is patient in pain?: Yes Allergies clarithromycin [From Biaxin] Allergy (Verified 01/25/14 13:01) Hives vancomycin Allergy (Verified 01/25/14 13:01) Itching amoxicillin trihydrate [From Augmentin] Adverse Reaction (Verified 01/25/14 13:01) Upset Stomach potassium clavulanate [From Augmentin] Adverse Reaction (Verified 01/25/14 13:01) Upset Stomach Medications Lisinopril [Zestril] 20 mg PO DAILY 06/07/13 [History Confirmed 01/25/14] Metoprolol Tartrate [Lopressor] 25 mg PO BID 06/07/13 [History Confirmed 01/25/14] Loratadine [Claritin] 10 mg PO DAILY 01/25/14 [History Confirmed 01/25/14] Docusate Sodium [Colace] 100 mg PO BID PRN PRN #10 cap 02/01/14 [Rx] Hydrocodone Bitart/Apap 5-325 [Kingman 5/325] 1 - 2 tab PO Q6H PRN PRN #30 tab 02/01/14 [Rx] proMETHazine tablet [Phenergan] 25 mg PO Q4H PRN PRN #10 tab 02/01/14 [Rx] spironolactone 25 mg tablet 25 mg PO QAM 11/17/17 [History Confirmed 11/17/17] [facility] Medical History Hypertension (Chronic) Social History Smoking Status: Never smoker HPI back pain : Chief Complaint: back pain Visit Number: 2 Details: TOMEKA COREAS is a 67 year old F who presents with decreased low back pain. The patient states that after her last visit the pain did decrease leaving her with only a dull ache. The pain is still localized to one area on the lower R back. While at work the patient has begun wearing a support band for the low back which causes her to have little to no pain. Tomeka denies any numbness or tingling, and only begins to have pain at the end of her shift when working. Location: low back Duration: intermittent Aggravating or associated factors: prolonged walking and frequent bending Relieving factors: support belt and adjustments Pain Quality: aching, dull Exam Musc General: Yes normal posture, joint tenderness (T10, T11, T12, L3-L5, L SI) and decreased ROM; no normal gait (favoring left foot) Thoracic/Lumbar Spine: thor and lumb spine abnorm to inspection (L short leg (.25in)), Lasegue's sign positive on the left, pain with thoraco-lumbar ROM with forward flexion, with lateral flexion to the right, with lateral flexion to the left and with rotation to the right, paraspinal tenderness (slightly improved) on the left, thoraco- lumbar ROM limited with forward flexion, thoraco-lumbar spasm (slightly improved) on the left in the mid lumbar and in the lower lumbar and bilaterally in the lower thoracic, straight leg raise positive left: at 30 degrees Office Procedures Chiropractic Treatments Procedures Manipulation: 3-4 regions (T8, T11, L3, LIL) Assessment AND Plan 1. Segmental and somatic dysfunction of pelvic region M99.05 Orders Orders: 2. Segmental and somatic dysfunction of cervical region M99.01 Orders Orders: 3. Segmental and somatic dysfunction of thoracic region M99.02 Orders Orders: 4. Segmental and somatic dysfunction of lumbar region M99.03 Orders Orders: 5. DDD (degenerative disc disease), lumbar M51.36 Orders Orders: Plan Detail Additional Comments Continue modified acute treatment plan. Goals Decrease pain/radiculopathy Increase ability to stand/walk Barriers DDD Follow Up 1 Week Coding Level of Care Code No Charge Diagnoses Segmental and somatic dysfunction of pelvic region M99.05 Segmental and somatic dysfunction of cervical region M99.01 Segmental and somatic dysfunction of thoracic region M99.02 Segmental and somatic dysfunction of lumbar region M99.03 DDD (degenerative disc disease), lumbar M51.36 Additional Codes Procedures - Manipulation: 3-4 regions (59457) 11/19/17 1235 <Electronically signed by Nguyen Whyte D.C.> Date Nguyen Whyte D.C. Cosigner Signature: Date (if applicable) CC: CHIROPRACTIC REPORT Observed: 11/12/2017 Status: F Source: [place] 9:16 AM [facility] [address] [place] [address] OFFICE VISIT Date of Service: 11/11/17 MR#: [id number] Acct: [id number] Name: TOMEKA COREAS Rep #: [id number] : 1950 Provider: Nguyen Whyte D.C. Age/Sex: 67/F [place] [facility] Status: Signed Intake Vital Signs11/11/17 Height 5 ft 5.2 in 11/11/17 Weight: 180 lb 4 oz 11/11/17 Body Mass Index (BMI) 29.8 11/11/17 Blood Pressure 152/65 Intake Visit Reasons: Low back pain Is patient in pain?: Yes Allergies clarithromycin [From Biaxin] Allergy (Verified 01/25/14 13:01) Hives vancomycin Allergy (Verified 01/25/14 13:01) Itching amoxicillin trihydrate [From Augmentin] Adverse Reaction (Verified 01/25/14 13:01) Upset Stomach potassium clavulanate [From Augmentin] Adverse Reaction (Verified 01/25/14 13:01) Upset Stomach Medications Lisinopril [Zestril] 20 mg PO DAILY 06/07/13 [History Confirmed 01/25/14] Metoprolol Tartrate [Lopressor] 25 mg PO BID 06/07/13 [History Confirmed 01/25/14] Loratadine [Claritin] 10 mg PO DAILY 01/25/14 [History Confirmed 01/25/14] Docusate Sodium [Colace] 100 mg PO BID PRN PRN #10 cap 02/01/14 [Rx] Hydrocodone Bitart/Apap 5-325 [Kingman 5/325] 1 - 2 tab PO Q6H PRN PRN #30 tab 02/01/14 [Rx] proMETHazine tablet [Phenergan] 25 mg PO Q4H PRN PRN #10 tab 02/01/14 [Rx] PFSH Medical History Hypertension (Chronic) Social History Smoking Status: Never smoker HPI Low back pain: Chief Complaint: L SIDED LOW BACK PAIN Visit Number: 1 Referral source: previous patient Details: TOMEKA COREAS is a 67 year old F who presents with L sided low back pain. She states that roughly 5 weeks ago she began a new job that requires her to walk long distances, with frequent bending and twisting. The pain started out as a dull ache in the L low back and has gradually become a sharp throbbing pain that radiates into the L foot. At times after being at work she does experience some numbness and tingling, today Tomeka rates her pain a 4/10 and describes it as a slight throbbing in the L low back. At its worst, at the end of Tomeka shift she rates her pain a 10/10 stating it is hard for her to walk and bend. Onset: 10/07/17 Location: L low back Duration: constant Aggravating or associated factors: prolonged bending and twisitng, walking a long distance Relieving factors: laying flat and heat Pain Quality: aching, dull, sharp, radiating Exam Musc General: Yes normal posture, joint tenderness (T10, T11, T12, L3-L5, L SI) and decreased ROM; no normal gait (favoring left foot) Thoracic/Lumbar Spine: thor and lumb spine abnorm to inspection (L short leg (.25in)), Lasegue's sign positive on the left, pain with thoraco-lumbar ROM with forward flexion, with lateral flexion to the right, with lateral flexion to the left and with rotation to the right, paraspinal tenderness on the left, thoraco-lumbar ROM limited with forward flexion, thoraco-lumbar spasm on the left in the mid lumbar and in the lower lumbar and bilaterally in the lower thoracic, straight leg raise positive left: at 30 degrees Neuro General: alert, awake, oriented x3, gait abnormal, normal light touch, pain and propioception, deep tendon reflexes 2+ bilaterally (lower extremity) Motor: strength not 5/5 throughout (4/5 L lower extremity) Ortho Test CERVICAL THORACIC Kemps: Negative Schepelmanns pain: Negative Hendrix: Negative LUMBAR Kemps: Positive, Le Valsalvas: Negative SLR: Positive, Le Braggards: Positive, Le Iliac Compression: Positive, Le Office Procedures Chiropractic Treatments Procedures Manipulation: 3-4 regions (T10, L3, L5, LIL) Electrical Stimulation: 15 mins Location: lumbar Assessment AND Plan 1. DDD (degenerative disc disease), lumbar M51.36 Orders Orders: 2. Segmental and somatic dysfunction of lumbar region M99.03 Orders Orders: 3. Segmental and somatic dysfunction of thoracic region M99.02 Orders Orders: 4. Segmental and somatic dysfunction of pelvic region M99.05 Plan Detail Other Orders Orders: Goals Decrease pain/radiculopathy Increase ability to stand/walk Barriers DDD Follow Up 2x/wk Coding Level of Care Code Off vis,est,level 1 Diagnoses DDD (degenerative disc disease), lumbar M51.36 Segmental and somatic dysfunction of lumbar region M99.03 Segmental and somatic dysfunction of thoracic region M99.02 Segmental and somatic dysfunction of pelvic region M99.05 Additional Codes Procedures - Manipulation: 3-4 regions (07130) Procedures - Electrical Stimulation: 15 mins (76763) 11/12/17 0916 <Electronically signed by Nguyen Whyte D.C.> Date Nguyen Whyte D.C. Cosigner Signature: Date (if applicable) CC: ALLERGIES ALLERGIES DATE TYPE / NAME / CODE REACTION SEVERITY SOURCE CODE 01/25/2014 Drug amoxicillin Upset Stomach Unknown [place] Allergy/41 trihydrate/[id number] [facility] [id number]( 7(RXNORM) [facility] OMED CT) Repository 01/25/2014 Drug potassium Upset Stomach Unknown [place] Allergy/41 clavulanate/[id number] [facility] 7576170( 09(RXNORM) [facility] OMED CT) Repository 01/25/2014 Drug clarithromycin/F0060 Hives Unknown [place] Allergy/41 86635(RXNORM) [facility] 8991510([facility] CT) Repository 01/25/2014 Drug vancomycin/[id number] Itching Unknown [place] Allergy/41 6(RXNORM) [facility] 7769072([facility] OME CT) Repository 11/29/2013 DRUG CLARITHROMYCIN HIVES [address] [id number]( Repository OMED CT) 11/29/2013 DRUG VANCOMYCIN ITCHING [address] 7315783( Repository OMED CT) 06/27/2005 DRUG/02025 AMOXICILLIN-POT [facility] 1003(OME CLAVULANATE [address] [place] [address]) Repository ENCOUNTERS ENCOUNTERS ADMIT/DISCHARGE ACCOUNT ADMITTING ENCOUNTER LOCATION SOURCE NUMBER [facility] 07/20/2018 [id number] [facility] ing[facility] Repository 03/29/2018/03/31/20 [id number] Ambulatory [address] Repository 01/27/2018 [id number] [facility] ing:[facility] Repository 01/27/2018 [id number] [facility] ing:[facility] Repository 12/16/2017/12/17/19 [id number] Ambulatory BMSBuilding:B [place] [facility] Repository 12/08/2017 [id number] Ambulatory BMSBuilding:B [place] Repository 11/24/2017/11/25/19 [id number] Ambulatory BMSBuilding:B [place] 18 [facility] Repository 11/17/2017/11/18/19 [id number] Ambulatory BMSBuilding:B [place] 18 [facility] Repository 11/11/2017/11/12/19 [id number] Ambulatory BMSBuilding:B [place] 18 [facility] Repository PAYERS PAYERS ENCOUNTER GUARANTOR PAYER SUBSCRIBER SOURCE 07/20/2018 TOMEKA Allen Primary TOMEKA Allen [place] [id number] Insurance:HUMANA RITCHIEDOB: Formerly [facility] MEDICARE [facility] [id number] Number[place] Repository 1999[address]Wzf: 330 [id number] [phone] (HP) Date:5789-05-62SH [address] [address]ZQ: 07/20/2018 Secondary NOT GIVENUNK [place] Insurance:SELF PAY [facility] Number: Effective Repository Date:2018-07-20 01/27/2018 TOMEKA Allen Primary TOMEKA Allen [place] [id number] Insurance:HUMANA RITCHIEDOB: Formerly [facility] MEDICARE [facility] [id number] Number: Repository [address]Gap: 330 [id number] [phone] (HP) Date:8214-24-28JZ [address] [address]AU: 01/27/2018 Secondary NOT GIVENUNK [place] Insurance:SELF PAY [facility] Number: Effective Repository Date:2018-01-27 01/27/2018 TOMEKA Allen Primary TOMEKA Allen [place] [id number] Insurance:HUMANA RITCHIEDOB: Formerly [facility] MEDICARE [facility] [id number] Number: Repository [address]Ahp: 330 [id number] [phone] (HP) Date:9166-65-83DY [address] [address]ZM: 01/27/2018 Secondary NOT GIVENUNK [place] Insurance:SELF PAY [facility] Hospital Number: Effective Repository Date:2018-01-27 12/16/2017 TOMEKA Primary TOMEKA [place] [id number] Insurance:HUMANA RITCHIEDOB: Community [place] MEDICARE [id number] [place] Number[facility] Repository [id number]: (330 [id number] [phone] (HP) Date:4166-51-79WS [address] [address]BE: 12/16/2017 Secondary NOT GIVENUNK [place] Insurance:SELF PAY [facility] Hospital Number: Effective Repository Date:2017-12-16 12/08/2017 TOMEKA Primary TOMEKA [place] [id number] Insurance:HUMANA RITCHIEDOB: Community [place] MEDICARE [id number] [place] Number: Repository [id number]: 330 [id number] [phone] (HP) Date:3380-55-71WQ [address] [address]TG: 12/08/2017 Secondary NOT GIVENUNK [place] Insurance:SELF PAY [facility] Hospital Number: Effective Repository Date:2017-11-24 11/24/2017 TOMEKA Primary TOMEKA [place] [id number] Insurance:HUMANA RITCHIEDOB: Community [place] MEDICARE [facility] [id number] Number: Repository [phone]: 330 [id number] [phone] (HP) Date:1734-13-65OJ [address] [address]EY: 11/24/2017 Secondary NOT GIVENUNK [place] Insurance:SELF PAY [facility] Number: Effective Repository Date:2017-11-24 11/17/2017 TOMEKA Primary TOMEKA [place] [id number] Insurance:HUMANA RITCHIEDOB: Community [place] MEDICARE [facility] [id number] [place] Number: Repository [id number]: (330 [id number] [phone] (HP) Date:3028-37-41[place] [address]WP: 11/17/2017 Secondary NOT GIVENUNK [place] Insurance:SELF PAY [facility] Number: Effective Repository Date:2017-11-17 11/11/2017 TOMEKA Primary TOMEKA [place] [id number] Insurance:HUMANA RITCHIEDOB: Community [place] MEDICARE PPOPolicy [id number], [place] Number: Repository [phone]: (317) [id number] [phone] () Date:[id number] [address]KD: 11/11/2017 Secondary NOT GIVENUNK [place] Insurance:SELF PAY [facility] Number: Effective Repository Date:2017-11-11
== END ==
PROVIDERS: Family Provider Family Medicine; PCP Family Medicine; Referring Provider Family Medicine; Visit Provider Family Medicine
DX: R05 Cough (principal); R06.00 Dyspnea, unspecified; R74.8 Abnormal levels of other serum enzymes
CPT/HCPCS: 36415; 71046; 80053; 85025; 87070; 87205

== ENCOUNTER → 2018-10-20 10:04 | Outpatient (CLI) | payer MEDICARE, SELFPAY ==
[2018-09-13 09:04] VITALS: BMI 29.1
--- NOTE | 2018-10-20 10:05 | BI_ITS ---
MAMMOGRAPHY - BILATERAL SCREENING REASON FOR EXAM: Female, 68 years old. Routine annual screening examination. PERTINENT HISTORY: Non-contributory. TECHNIQUE: Digital bilateral breast noe (3D mammographic acquisition) in the CC and MLO projections. 2-D mediolateral oblique (MLO) and craniocaudad (CC) views of both breasts were obtained. CAD: Full Field Digital Mammography with Computer Added Detection was performed. COMPARISON: Comparison is made with prior study dated January 30, 2017 and March 30, 2015. FINDINGS: Breast Composition: There are scattered areas of fibroglandular density. There are no dominant masses or suspicious calcifications. Stable benign-appearing bilateral axillary lymph nodes. No other significant abnormalities are identified. There has been no significant change since the prior study. BI/SCREENING MAMM (CAD), BILAT IMPRESSION: Stable bilateral screening mammogram. Yearly follow-up mammogram recommended. (A) ASSESSMENT CATEGORY: BIRADS Category 2: Benign. A letter regarding these results will be sent to the patient by the facility within 30 days. Approximately 10% of breast cancers are not detected by mammography. A normal mammogram should not delay biopsy of a clinically suspicious abnormality. [id number] Electronically Signed: Hamlet Reyes, at 11:24 EDT , Service support ,
== END ==
PROVIDERS: Family Provider Family Medicine; PCP Family Medicine; Referring Provider Family Medicine; Visit Provider Family Medicine
DX: Z12.31 Encounter for screening mammogram for malignant neoplasm of breast (principal)
CPT/HCPCS: 77063; 77067

== ENCOUNTER → 2019-05-11 08:44 | Outpatient (CLI) | payer MEDICARE, SELFPAY ==
[2018-09-13 09:04] VITALS: BMI 29.1
[2019-05-11 12:54] LABS: International Normalized Ratio 1.1; Prothrombin Time (Protime)PT. 13.9 SECONDS (11.7-14.9)
== END ==
PROVIDERS: Family Provider Family Medicine; PCP Family Medicine; Visit Provider Family Medicine
DX: R23.3 Spontaneous ecchymoses (principal)
CPT/HCPCS: 36415; 85610

== ENCOUNTER → 2019-05-11 08:47 | Outpatient (CLI) | payer MEDICARE, SELFPAY ==
[2018-09-13 09:04] VITALS: BMI 29.1
[2019-05-11 12:40] LABS: Absolute Lymphocyte Count 1.79 X10^3/uL (0.83-4.51); Absolute Neutrophil Count 3.1 X10^3/uL (2.0-7.7); Basophil# 0.05 X10^3/uL; Basophil% 0.9 % (0-1); Eosinophil# 0.26 X10^3/uL; Eosinophils% 4.6 % (0-5); Hemoglobin 13.7 g/dL (12.0-15.0); Lymphocyte # 1.79 X10^3/ul; Lymphocyte % 31.6 % (19-41); Mean Corp Hgb Conc 31.9 g/dL (32-36); Mean Corpuscular Hgb 29.5 pg (27.0-32.0); Mean Corpuscular Volume 92.7 fL (81-99); Monocyte# 0.47 X10^3/uL; Monocyte% 8.3 % (0-10); NRBC Flagged by Analyzer 0 % (0-5); Neutrophil # 3.07 X10^3/uL (2.7-7.7); Neutrophil % 54.2 % (47-70); Platelet Count 186 K/mm3 (150-450); RBC Distribution Width CV 14.1 % (11.6-14.6); RBC Distribution Width SD 48.4 fl (35.1-43.9); Red Blood Count 4.64 M/mm3 (4.2-5.4); White Blood Count 5.7 K/mm3 (4.4-11.0)
[2019-05-11 12:41] LABS: Color, Urine Yellow (Yellow); Glucose, Dipstick Normal (Normal); Ketone-Dipstick Negative (Negative); Leukocyte Esterase-Dipstick 500 /ul (Negative); Nitrite-Dipstick Negative (Negative); Occult Blood-Urine Negative /ul (Negative); Protein-Dipstick Negative (Negative); Urine Bilirubin Dipstick Negative (Negative); Urine Clarity Sl. Cloudy (Clear); Urine Urobilinogen Normal (Normal)
[2019-05-11 14:09] LABS: ALB/GLOB Ratio 1.3 RATIO (0.9-2.4); AST(SGOT) 19 U/L (15-37); Alanine Aminotransfer ALT/SGPT 22 U/L (13-56); Albumin, Serum 4.1 g/dL (3.2-5.0); Alkaline Phosphatase 120 U/L (45-117); Anion Gap 9 (5-15); BUN 25 mg/dL (7-18); BUN/Creat Ratio 31.3 RATIO (10-20); Bilirubin, Direct 0.23 mg/dL (0.00-0.30); Calcium,Total 8.9 mg/dL (8.5-10.1); Chloride 109 mmol/L (98-107); Cholesterol 147 mg/dL (200); EST Glomerular Filtration Rate 76 mL/min (>60); Est Glom Filt Rate - Afr Amer 91 mL/min (>60); Globulin 3.2 g/dL (2.2-4.2); Glucose 88 mg/dL (74-106); High Density Lipoprotein 43 mg/dL; LDH 176 U/L (84-246); Phosphorus 3.2 mg/dL (2.5-4.9); Potassium 3.9 mmol/L (3.5-5.1); Protein, Total 7.3 g/dL (6.4-8.2); Sodium Level 143 mmol/L (136-145); Triglycerides 107 mg/dL; Uric Acid 7.2 mg/dL (2.6-6.0); Very Low Density Lipoprotein 21 mg/dL (5-40)
== END ==
PROVIDERS: Family Provider Family Medicine; PCP Family Medicine
DX: R23.3 Spontaneous ecchymoses (principal)
CPT/HCPCS: 36415; 85610

== ENCOUNTER → 2019-08-31 12:00 | Outpatient (CLI) | payer MEDICARE, SELFPAY ==
[2019-05-31 08:35] VITALS: BMI 29.1
--- NOTE | 2019-08-31 12:06 | RAD_ITS ---
STUDY: X-RAY - LEFT HAND, ATTENTION THUMB REASON FOR EXAM: Bilateral thumb pain, no specific injury. TECHNIQUE: 3 view(s) of the finger were obtained. COMPARISON: None. FINDINGS: There are small marginal osteophytes and moderately severe joint space narrowing of the first carpometacarpal articulation. Normal metacarpal. Normal metacarpophalangeal joint. Normal proximal phalanx. Normal distal phalanx. There are small marginal osteophytes without joint space narrowing of the interphalangeal joint. RAD/Finger(s) Min 2 Views IMPRESSION: Arthrosis of the first carpometacarpal joint. Electronically Signed: Andrew Newton MD at 14:21 EST Tel , Service support ,
--- NOTE | 2019-08-31 12:06 | RAD_ITS ---
STUDY: X-RAY - RIGHT HAND, ATTENTION THUMB REASON FOR EXAM: Bilateral thumb pain, no specific injury. TECHNIQUE: 3 view(s) of the finger were obtained. COMPARISON: None. FINDINGS: There are small marginal osteophytes and moderate to severe joint space narrowing of the first carpometacarpal joint. Normal metacarpal. Normal metacarpophalangeal joint. Normal proximal phalanx. Normal distal phalanx. Normal interphalangeal joint. RAD/Finger(s) Min 2 Views IMPRESSION: Arthrosis of the first carpometacarpal joint. Electronically Signed: Andrew Newton MD at 14:25 EST Tel , Service support ,
[2019-08-31 14:22] LABS: Ferritin 205 ng/mL (8-252); Thyroid Stim Hormone (TSH) 2.81 uIU/mL (0.358-3.74)
[2019-08-31 14:23] LABS: Vitamin B12 521 pg/mL (211-911)
[2019-09-01 16:08] LABS: ANTINUCLEAR ANTIBODIES DIRECT Positive (Negative); Anti-Centromere B Ab <0.2 AI (0.0-0.9); Anti-Chromatin <0.2 AI (0.0-0.9); Anti-Jo <0.2 AI (0.0-0.9); Anti-Scleroderma-70 AB <0.2 AI (0.0-0.9); RNP Ab <0.2 AI (0.0-0.9); SJOGREN'S Anti-SS-A test < 0.2 AI (0.0-0.9); SJOGREN'S Anti-SS-B test < 0.2 AI (0.0-0.9); Smith Ab <0.2 AI (0.0-0.9)
[2019-09-01 17:08] LABS: Anti-dsDNA Ab 10 IU/mL (0-9)
== END ==
LOC: MTLAB 12:05
PROVIDERS: PCP Family Medicine; Referring Provider Family Medicine; Visit Provider Family Medicine
DX: G62.9 Polyneuropathy, unspecified (principal); G25.81 Restless legs syndrome; E01.0 Iodine-deficiency related diffuse (endemic) goiter; M79.644 Pain in right finger(s); M79.645 Pain in left finger(s)
CPT/HCPCS: 36415; 73140; 82607; 82728; 84443; 86038; 86225; 86235

== ENCOUNTER 2019-09-15 22:59 | Emergency (ER) | payer OTHER, MEDICARE, SELFPAY ==
[2019-05-31 08:35] VITALS: BMI 29.1
[2019-09-15 23:00] VITALS: BP 153/76; PULSE 97; RESP 15; TEMP 36.7; O2SAT 96; BMI 30.4
--- NOTE | 2019-09-15 23:20 | RAD_ITS ---
STUDY: X-RAY - LEFT FOOT CLINICAL: Female, 69 years old. LEFT FOOT PAIN. HX OF SURGERY TO 1ST DIGIT TECHNIQUE: 3 view(s) of the foot. COMPARISON: None. FINDINGS: Normal talus, calcaneus, and tarsal bones. Calcaneus plantar spurring. Normal visualized subtalar, talonavicular, calcaneocuboid, tarsal and tarsometatarsal articulations. Normal metatarsi. Degenerative changes at the metatarsophalangeal joint of the great toe. Normal tibial and fibular sesamoid bones. Normal interphalangeal joint of the great toe. Normal phalanges of the great toe. Normal second through fifth metatarsophalangeal joints. Normal interphalangeal joints and phalanges of the lesser toes. The soft tissue structures are unremarkable. RAD/Foot min 3 Views IMPRESSION: No acute bony injury of the foot. Electronically Signed: Demond Mccarthy DO at 23:45 EST Tel [phone], Service support ,
--- NOTE | 2019-09-15 23:50 | ED.DCSUM_ITS ---
- ER Visit Summary Date of Service: 09/15/19 Chief Complaint: [Injury to left foot] History of Present Illness: The patient is a 69 F [presents to the emergency department complaint of pain in her left foot. Patient was at work when she just turned while walking and felt a pop in her foot. Patient had a hard time bearing weight afterwards. Patient has history of degenerative disc disease. There was no fall or other injury.] Physical Examination: [Left foot-patient has diffuse tenderness palpation over the dorsum and proximal aspect of the foot near the ankle mortise. Patient has pain with dorsiflexion of the toes in this area. There is no external evidence of trauma such as ecchymosis or bruising. No obvious deformity. She is neurovascular intact distally.] Test Results: [X-Rays of the left foot were normal] Emergency Department Course and Treatment: [Patient will be given a walking boot. Patient states she has crutches at home. Patient will be given work restrictions] Treatment Plan: [Work restrictions and follow-up with corporate care in 3 to 5 days] Disposition: [Discharged home in stable condition] Impression: [Foot sprain] This note was generated with [employer] dictation software. It may contain incorrect words, spelling, and punctuation that were not noted in review of the chart prior to signing ED Disposition - Plan for ED Patient: Referrals: Dashawn Dexter DO [Primary Care Provider] -
--- NOTE | 2019-09-15 23:52 | DCINST.ED_ITS ---
ED Disposition - Plan for ED Patient: Instructions: Sprain Foot Referrals: Dashawn Dexter DO [Primary Care Provider] - Corporate,[facility] [GROUP OF PHYSICIANS] - 3-5 Days
--- NOTE | 2019-09-15 23:52 | ED.DEP ---
ED Disposition - Plan for ED Patient: Instructions: Sprain Foot Referrals: Dashawn Dexter DO [Primary Care Provider] - [facility] [GROUP OF PHYSICIANS] - 3-5 Days
== END 2019-09-16 00:14 | disposition home or self-care (01) ==
LOC: ED 23:13
PROVIDERS: Emergency Provider Emergency Medicine; PCP Family Medicine
DX: S93.602A Unspecified sprain of left foot, initial encounter (principal); X58.XXXA Exposure to other specified factors, initial encounter; Y93.01 Activity, walking, marching and hiking; Y92.9 Unspecified place or not applicable; Y99.0 Civilian activity done for income or pay
CPT/HCPCS: 73630; 99283

== ENCOUNTER → 2019-10-06 10:30 | Outpatient (CLI) | payer MEDICARE, SELFPAY ==
[2019-09-19 15:24] VITALS: BMI 30.4
--- NOTE | 2019-10-06 10:42 | MRI_ITS ---
STUDY: MRA OF THE HEAD WITHOUT CONTRAST REASON FOR EXAM: Female, 69 years old. L pulsitile tinnitus, left ear pain COMPARISON: Previous MRI of the head obtained on 10/06/2019 TECHNIQUE: An MRI of the head was performed utilizing 3-D nmfm-il-jnxtal spoiled gradient echo images. The source images were reviewed along with MIPPED images rotated about a vertical and horizontal axis through the anterior and posterior cerebral circulations. FINDINGS: Posterior cerebral circulation: The V4 segments of the vertebral arteries are normal. The basilar artery is normal. The anterior inferior cerebellar artery is seen and appears to be normal. The anterior superior cerebellar arteries are seen at their origins bilaterally. The P1 and P2 segments of the right posterior cerebral artery and is visualized and appears to be normal. There is a origin of the left posterior cerebral artery which is a vascular development variation which is normal. Anterior cerebral circulation: The petrous, cavernous, and supraclinoid portions of the internal carotid arteries appear to be normal. The A1 segments of the right anterior cerebral artery appears to be normal. There is atresia of D1 segment of the left anterior cerebral artery. This is a vascular developmental variation. The anterior communicating artery is normal. The M1 segments of the middle cerebral arteries appear to be normal. The bifurcations of the middle cerebral arteries appear to be normal. No abnormal areas of spasm or peripheral dilatation of peripheral arteries is seen. No salguero aneurysms are identified. MRI/MRA Head ONLY without Contrast IMPRESSION: Normal MRA of the head Electronically Signed: Devon Negro, at 13:35 EST Tel , Service support ,
--- NOTE | 2019-10-06 10:42 | MRI_ITS ---
STUDY: MRI BRAIN WITH AND WITHOUT CONTRAST (ATTENTION INTERNAL AUDITORY CANALS - I.A.C.''s) REASON FOR EXAM: Female, 69 years old. left pulsatile tinnitus, left ear pain EXAM DESCRIPTION: CLINICAL HISTORY: 69 years Female, left pulsatile tinnitus, left ear pain COMPARISON: None. TECHNIQUE: An MRI was performed utilizing axial diffusion and ADC map images followed by axial T2 and FLAIR followed by sagittal and axial T1 weighted images. Axial 2-D fiesta images through the posterior fossa were performed along with coronal T2 weighted images posterior fossa and axial and coronal pre and postcontrast T1-weighted images to the posterior fossa. A postcontrast T1-weighted sequence through the entire head was also performed. FINDINGS: The diffusion weighted axial images and ADC map images of the head show no evidence of restricted diffusion. The bakari, medulla and midbrain and cerebellum appear to be normal. The ventricles and sulci are normal in size and shape. The cerebral hemispheres appear to be normal.The basal ganglia appear to be normal. No enhancing masses or lesions are seen. No evidence of a Chiari I malformation is identified. The V4 segments of the vertebral artery, the basilar artery, the posterior cerebral arteries, the cavernous and supraclinoid carotid arteries, and the M1 segments of the middle cerebral arteries are all normal The orbits including the optic nerves and optic chiasm appear normal. The pituitary and pituitary infundibulum appear to be normal. T Thursday 2 the internal artery canals bilaterally. His sister Julia canalicular portions of the 7th and 8th cranial nerves appear to be normal bilaterally. No enhancing masses or lesions are seen. The cisternal segments of the 5th cranial nerves appear normal bilaterally. The auditory axis including the ventral and dorsal cochlear nuclei, the trapezoid body, the lateral lemniscus, the inferior colliculus, the medial geniculate body, and the superior temporal gyri (Brodmann area 41,42) are all normal. The inner and outer tables of the skull are normal The frontal, ethmoid, maxillary, and sphenoid sinuses are normal. The mastoid air cells are normal. MRI/Brain W/WO Contrast IMPRESSION: Normal MRI of the head and internal auditory canals. Electronically Signed: Devon Negro, at 13:51 EST Tel , Service support ,
[2019-10-06 16:35] LABS: CREATININE FINGERSTICK 0.8 mg/dL (0.55-1.02); EGFR FINGERSTICK > 60.0000 mL/min (>60)
== END ==
PROVIDERS: PCP Family Medicine; Referring Provider Otolaryngology; Visit Provider Otolaryngology
DX: Z01.812 Encounter for preprocedural laboratory examination (principal); H93.A2 Pulsatile tinnitus, left ear
CPT/HCPCS: 70544; 70553

== ENCOUNTER 2019-12-26 11:21 | Emergency (ER) | payer MEDICARE, SELFPAY ==
[2019-09-19 15:24] VITALS: BMI 30.4
[2019-12-26 11:22] VITALS: BP 167/93; PULSE 73; RESP 19; TEMP 36.1; O2SAT 98; BMI 30.2
--- NOTE | 2019-12-26 12:14 | VDLE_ITS ---
Reason For Study: Swelling RIGHT LEFT CFV is compressible, spontaneous, phasic, CFV is compressible, spontaneous, phasic, competent and demonstrates normal competent, and demonstrates normal augmentation. augmentation. FV is compressible, spontaneous, phasic, competent and demonstrates normal augmentation. POP V is compressible, spontaneous, phasic, competent and demonstrates normal augmentation. T/P Trunk is compressible. PTV is compressible. RT PerV is compressible. Acute superficial vein thrombosis is noted in the GSV proximal thigh. GSV mid thigh and below previous EVLA. Thrombus filled varicose veins noted throughout proximal thigh to distal thigh. Procedure Exam performed portable in ED. A preliminary report was called and/or faxed to [facility]. Interpretation Summary There is no evidence of right lower extremity deep vein thrombosis. Superficial thrombophlebitis involving the right great saphenous vein proximally. By report there is been a previous EVLA of the right mid thigh. Superfical thrombophlebitis within varicosities right thigh Patent, compressible left common femoral vein Ordering Physician: Young Miguel Referring Physician: Dashawn Dexter Performed By: Ruby Mckeon RVT
--- NOTE | 2019-12-26 12:15 | ED.DCSUM_ITS ---
History of Present Illness Chief Complaint: Lower Extremity Injury Informant: Patient Onset: Today Narrative: Patient presents to the emergency room out of concern for DVT. She states that she has had some superficial thrombosis on the legs before and this started a couple days ago. We will concerned her now as it seems to have spread to much larger area than she was comfortable with. She denies any significant leg swelling. No chest pain shortness of breath. She is not on aspirin therapy and she does not take any blood thinners. Past Medical History - Allergies and Home Meds Allergies/Adverse Reactions: Allergies clarithromycin [From Biaxin] Allergy (Verified 12/26/19 11:24) Hives vancomycin Allergy (Verified 12/26/19 11:24) Itching amoxicillin trihydrate [From Augmentin] Adverse Reaction (Verified 12/26/19 11:24) Upset Stomach potassium clavulanate [From Augmentin] Adverse Reaction (Verified 12/26/19 11:24) Upset Stomach Primary Care Physician: Dashawn Dexter DO [Primary Care Provider] - 1 Week if not improving Smoking Status: Never smoker Review of Systems General: Denies: Chills, Fever, Sweats Eyes: Denies: Visual changes - bilaterally, Diplopia ENT: Denies: Rhinorrhea, Sore throat Cardiovascular: Denies: Chest pain, Palpitations Respiratory: Denies: Dyspnea, Cough, Dyspnea on exertion Gastrointestinal: Denies: Abdominal pain, Nausea, Vomiting, Diarrhea, Melena, Hematochezia Genitourinary: Denies: Dysuria, Hematuria, Frequency Musculoskeletal: Reports: - - See history of present illness. Denies: Back pain, Extremity Pain Skin: Denies: Rash, Wounds Neurological: Denies: Headache, Weakness, Numbness Physical Exam Vital Signs/Narrative: Vital Signs Temp Pulse Resp BP Pulse Ox 12/26/19 11:22 96.9 F L 73 19 H 167/93 H 98 Inital Vital Signs reviewed: Yes General: Well nourished, Well developed, No Acute Distress Head: Normocephalic, Atraumatic Eyes: Perrl, EOMI ENT: Moist mucous membranes, No rhinorrhea Neck: Supple, Nontender Cardiovascular: Regular rate, Regular rhythm, No murmurs Respiratory: No distress, CTA bilaterally, Chest nontender Abdomen: Soft, Nontender, Nondistended, Normal bowel sounds Back: Nontender, Normal Inspection Extremities: - - There is trace nonpitting bilateral edema. There are varicose veins present. Right medial thigh shows an area of superficial veins that are thrombosed. This shows some superficial skin erythema. Skin: Normal color, No rash Neurological: Alert, Oriented x3, Cranial nerves II-XII grossly intact, Normal Strength, Normal Sensation Psychological: Normal affect, Normal Mood Diagnostic/Tx/Re-eval - Medical Decision Making Duplex ultrasound of the leg was obtained. Showed thrombosis of the saphenous vein but nothing in the deep system. Patient was instructed to take a full- strength aspirin a day applying heat. Return if worsening or concerns ED Disposition - Plan for ED Patient: Disposition: Home or Assisted Living Diagnosis: Superficial thrombophlebitis of lower extremity Instructions: ED Phlebitis Superficial Referrals: Dashawn Dexter DO [Primary Care Provider] - 1 Week if not improving Additional Instructions: You should take scheduled anti-inflammatories. Aleve naproxen Motrin.
== END 2019-12-26 13:55 | disposition home or self-care (01) ==
LOC: ED 13:46
PROVIDERS: Emergency Provider Emergency Medicine; PCP Family Medicine
DX: I80.01 Phlebitis and thrombophlebitis of superficial vessels of right lower extremity (principal); Z88.1 Allergy status to other antibiotic agents; Z88.0 Allergy status to penicillin
CPT/HCPCS: 93971; 99282

== ENCOUNTER → 2020-03-28 09:58 | Outpatient (CLI) | payer MEDICARE, SELFPAY ==
[2020-03-28 08:21] VITALS: BMI 28.5
--- NOTE | 2020-03-28 09:59 | RAD_ITS ---
HISTORY: CHRONIC PAIN ADDITIONAL HISTORY: None provided. EXAMINATION/TECHNIQUE: XR Knee Complete 4 Views or More Left Number of images including paperwork: 8 COMPARISON: 01/27/2018 FINDINGS: BONES: No acute fracture. JOINTS: No subluxation. Severe tricompartmental degenerative changes. Moderate size joint effusion. SOFT TISSUES: No distinct foreign body. Tubular densities in the medial soft tissues suggestive of varicose veins. RAD/Knee 4 or More Views IMPRESSION: Degenerative changes without acute osseous abnormality. Left knee joint effusion. at 0534 Reported and signed by: Linda Romo MD Electronically Signed: Linda Romo MD at 5:34 EDT Tel , Service support ,
== END ==
PROVIDERS: PCP Family Medicine; Referring Provider Orthopaedic Surgery; Visit Provider Orthopaedic Surgery
DX: M25.562 Pain in left knee (principal)
CPT/HCPCS: 73564

== ENCOUNTER → 2020-05-31 10:26 | Outpatient (CLI) | payer MEDICARE, SELFPAY ==
[2020-03-28 08:21] VITALS: BMI 28.5
[2020-05-31 12:16] LABS: Absolute Lymphocyte Count 1.59 X10^3/uL (0.83-4.51); Absolute Neutrophil Count 3.1 X10^3/uL (2.0-7.7); Basophil# 0.05 X10^3/uL; Basophil% 0.9 % (0-1); Eosinophils% 3.7 % (0-5); Hemoglobin 13.5 g/dL (12.0-15.0); Lymphocyte # 1.59 X10^3/ul (4.0); Lymphocyte % 29.1 % (19-41); Mean Corp Hgb Conc 32.1 g/dL (32-36); Mean Corpuscular Hgb 29.7 pg (27.0-32.0); Mean Corpuscular Volume 92.5 fL (81-99); Mean Platelet Vol. 10.3 fl (6.2-12.0); Monocyte# 0.47 X10^3/uL; Monocyte% 8.6 % (0-10); NRBC Flagged by Analyzer 0 % (0-5); Neutrophil # 3.13 X10^3/uL (2.7-7.7); Neutrophil % 57.3 % (47-70); Platelet Count 180 K/mm3 (150-450); RBC Distribution Width CV 14.5 % (11.6-14.6); RBC Distribution Width SD 48.7 fl (35.1-43.9); Red Blood Count 4.54 M/mm3 (4.2-5.4); White Blood Count 5.5 K/mm3 (4.4-11.0)
[2020-05-31 12:33] LABS: ALB/GLOB Ratio 1.2 RATIO (0.9-2.4); AST(SGOT) 17 U/L (15-37); Alanine Aminotransfer ALT/SGPT 22 U/L (13-56); Alkaline Phosphatase 103 U/L (45-117); Anion Gap 6 (5-15); BUN 19 mg/dL (7-18); BUN/Creat Ratio 24.3 RATIO (10-20); Calcium,Total 8.8 mg/dL (8.5-10.1); Chloride 107 mmol/L (98-107); Creatinine, Serum 0.78 mg/dL (0.55-1.02); EST Glomerular Filtration Rate 77 mL/min (>60); Est Glom Filt Rate - Afr Amer 94 mL/min (>60); Globulin 3.3 g/dL (2.2-4.2); Glucose 88 mg/dL (74-106); Potassium 3.8 mmol/L (3.5-5.1); Protein, Total 7.3 g/dL (6.4-8.2); Sodium Level 141 mmol/L (136-145)
== END ==
PROVIDERS: PCP Family Medicine; Visit Provider Family Medicine
DX: Z01.818 Encounter for other preprocedural examination (principal)
CPT/HCPCS: 36415; 80053; 85025

== ENCOUNTER → 2020-06-02 10:34 | Outpatient (CLI) | payer MEDICARE, SELFPAY ==
[2020-03-28 08:21] VITALS: BMI 28.5
--- NOTE | 2020-06-02 07:20 | CT_ITS ---
STUDY: CT LEFT LOWER EXTREMITY WITHOUT CONTRAST REASON FOR EXAM: Female, 69 years old. Osteoarthritis, treatment planning scan. RADIATION DOSAGE (If Supplied By Facility): CTDIvol = ( 18.76 ) mGy, DLP = ( 1240.87 ) mGycm TECHNIQUE: Transaxial CT imaging of the knee was performed. Coronal and sagittal images were reformatted. Individualized dose optimization techniques were used for this CT. COMPARISON: None. FINDINGS: The hip is intact and located with normal. Articular soft tissues. There is mild chronic trochanteric ossific enthesopathy. The knee is intact and located with advanced tricompartmental degeneration with moderate extent periarticular osteophyte formation. Distal femur, proximal tibia and fibula are intact. The articular soft tissues are normal. The ankle is intact and located with normal soft tissues. CT/Extremity Lower without Contra IMPRESSION: 1. Treatment planning scan. 2. Moderate to severe knee arthritis. Electronically Signed: Pritesh Christianson, at 18:51 EDT Tel , Service support ,
== END ==
PROVIDERS: PCP Family Medicine; Referring Provider Orthopaedic Surgery; Visit Provider Orthopaedic Surgery
DX: M19.90 Unspecified osteoarthritis, unspecified site (principal)
CPT/HCPCS: 73700

== ENCOUNTER 2020-06-19 05:25 | Day surgery (SDC) | payer MEDICARE, SELFPAY ==
[2020-03-28 08:21] VITALS: BMI 28.5
[2020-06-12 11:50] LABS: International Normalized Ratio 1.1; Prothrombin Time (Protime)PT. 13.7 SECONDS (11.7-14.9)
[2020-06-12 11:51] LABS: Partial Thromboplast Time 26.6 Seconds (24.1-36.2)
[2020-06-12 12:30] LABS: Magnesium 2.2 mg/dL (1.6-2.6)
[2020-06-19] VITALS (10 sets, daily range): BP systolic 102–149; BP diastolic 48–82; PULSE 67–83; RESP 16–20; TEMP 36.2–36.6; O2SAT 88–99; BMI 29.9
--- NOTE | 2020-06-19 06:00 | HP_ITS ---
Intake Intake Visit Reasons: left knee Chief Complaint: left knee Allergies clarithromycin [From Biaxin] Allergy (Verified 06/04/20 14:10) Hives vancomycin Allergy (Verified 06/04/20 14:10) Itching latex Adverse Reaction (Mild, Verified 06/04/20 14:10) rash amoxicillin trihydrate [From Augmentin] Adverse Reaction (Verified 06/04/20 14:10) Upset Stomach potassium clavulanate [From Augmentin] Adverse Reaction (Verified 06/04/20 14:10) Upset Stomach PFSH Medical History (Updated 06/08/20 @ 10:27 by Blessing Horn) hx of BL leg vein oblation (Acute) Hypertension (Chronic) Surgical History (Updated 03/28/20 @ 12:01 by Becka Sesay) H/O hernia repair (Acute) H/O knee surgery (Acute) H/O oophorectomy (Acute) H/O tubal ligation (Acute) History of appendectomy (Acute) History of bunionectomy (Acute) Hx of endoscopy (Acute) Family History (Updated 09/19/19 @ 15:22 by Bal Casiano) Other CVA (cerebral vascular accident) Heart disease Social History (Updated 06/08/20 @ 10:[address] Kali Pino DO) Smoking Status: Never smoker alcohol intake: current alcohol intake frequency: holidays/special occasions only substance use type: does not use what type of physical activity do you participate in: walking, aerobics frequency: 1-2 times per week HPI left knee: Details: Parts of this documentation were recorded by a scribe, this documentation accurately reflects the service provided and the decisions made by me, Dr. Kali Pino DO 06/08/20 0753. GEOVANNA COREAS is a 69 year old F here today for her Iovera treatment for her left knee. Patient is scheduled for surgery on 06/19/2020. Ortho Exam General General: Yes no acute distress Neurologic: Yes alert Psychologic: Yes reasonable and appropriate Right Knee Patella Translation: 1 Left Knee Skin/Wound: No ecchymosis, No erythema, No swelling Homans Sign: No Knee ROM: No ROM-Extension -20 to 0 (lacking 15), No ROM-Flexion 0-140 (108) Stability: NML: Anterior Drawer, NML: Posterior Drawer, NML: Varus 30, 1+: Valgus 30 (3mm medial gapping D/T joint space narrowing) Apprehension with Lateral Translation: No Patella Translation: 1 Patella Grind: Yes KNEE: varicose veins BL BL lower leg edema unable to palpate posterior tibial pulse unable to palpate pedal pulse no patellar instability Office Procedures Iovera Details:: Preoperative diagnosis : right knee pain, OA of right knee Postoperative diagnosis: Same Procedure: Cryotherapy with Iovera device to anterior femoral cutaneous nerve and 2 branches of the infrapatellar saphenous nerve III nerves in total Description of procedure: Patient was brought back to the procedure room the operative extremity was identified by both patient and physician. The PIP flexion crease was measured to the midpoint of the patella and this distance was divided in 3 resulting in 10 cm location proximal to the midpoint of the patella. This line was extended medial and lateral to the extent of the edges of the patella. This was our treatment line for the anterior femoral cutaneous nerve. A second treatment line was made 5 cm medial to the inferior pole of the patella and 5 cm distally. The leg was prepped with alcohol and Betadine. Lidocaine with epi was used along the treatment lines. Using the Iovera device treatment lines were treated with 1 minute cycles. Reproduction of paresthesias was monitored in the area of nerve distribution. Once all 3 nerves were treated across the 2 treatment lines patient was cleaned and a light dressing with 4 x 4 and Ritchie wrap was applied. Patient tolerated the procedure without complication. Supplemental Info 01/27/2018 x-ray left knee: Severe tricompartmental arthrosis [id number] medial with large osteophytes Assessment & Plan Problems 1. Chronic pain of right knee M25.561; G89.29 2. Primary osteoarthritis of left knee M17.12 Plan Reviewed the pre-operative plans with the patient. Risks and benefits of the procedure were fully explained, including but not limited to infection, neurovascular injury, continued pain, arthritis, stiffness, need for further surgery, re-injury, DVT, PE, general risks of anesthesia, and loss of limb or life. The patient understands all the risks and does wish to proceed with written consent. Advised to elevate legs after surgery and to be compliant with wearing ABAD Hose post-op. Follow up two weeks post-op or sooner if pain, swelling, numbness or associated symptoms, or concerns develop. All questions answered. Patient in agreement of plan. Orders Orders: Iovera Today M25.569 Plan Detail Goals Decrease pain/radiculopathy Increase ability to stand/walk Improve sleep Barriers DDD Disc bulge Facet arthropathy Coding Level of Care Code Attention Axel Diagnoses Chronic pain of right knee M25.561; G89.29 ??Chronicity: chronic Primary osteoarthritis of left knee M17.12
[2020-06-19] MEDS: Gabapentin 600 MG Tablet PO (06:18)
[2020-06-19] MEDS: Celecoxib 200 MG Capsule 400 MG PO (06:18)
[2020-06-19] MEDS: Acetaminophen 500 MG Tablet 1000 MG PO ×2 (06:18→15:55)
[2020-06-19] MEDS: Scopolamine 1mg/72hr Patch 1 PATCH TRANSDERM. (06:19)
[2020-06-19] MEDS: Lactated Ringers 1,000 ML 999 ML IV (06:47)
[2020-06-19 07:15] LABS: Bedside Glucose 83 mg/dL (70-110)
--- NOTE | 2020-06-19 07:16 | HP.PCM_ITS ---
History and Physical Date of Admission: 06/19/20 Intake Intake Visit Reasons: left knee Chief Complaint: left knee Allergies clarithromycin [From Biaxin] Allergy (Verified 06/04/20 14:10) Hives vancomycin Allergy (Verified 06/04/20 14:10) Itching latex Adverse Reaction (Mild, Verified 06/04/20 14:10) rash amoxicillin trihydrate [From Augmentin] Adverse Reaction (Verified 06/04/20 14:10) Upset Stomach potassium clavulanate [From Augmentin] Adverse Reaction (Verified 06/04/20 14:10) Upset Stomach PFSH Medical History (Updated 06/08/20 @ 10:27 by Blessing Horn) hx of BL leg vein oblation (Acute) Hypertension (Chronic) Surgical History (Updated 03/28/20 @ 12:01 by Becka Sesay) H/O hernia repair (Acute) H/O knee surgery (Acute) H/O oophorectomy (Acute) H/O tubal ligation (Acute) History of appendectomy (Acute) History of bunionectomy (Acute) Hx of endoscopy (Acute) Family History (Updated 09/19/19 @ 15:22 by Bal Casiano) Other CVA (cerebral vascular accident) Heart disease Social History (Updated 06/08/20 @ 10:[address] Kali Pino DO) Smoking Status: Never smoker alcohol intake: current alcohol intake frequency: holidays/special occasions only substance use type: does not use what type of physical activity do you participate in: walking, aerobics frequency: 1-2 times per week HPI left knee: Details: Parts of this documentation were recorded by a scribe, this documentation accurately reflects the service provided and the decisions made by me, Dr. Kali Pino DO 06/08/20 0753. GEOVANNA COREAS is a 69 year old F here today for her Iovera treatment for her left knee. Patient is scheduled for surgery on 06/19/2020. Ortho Exam General General: Yes no acute distress Neurologic: Yes alert Psychologic: Yes reasonable and appropriate Right Knee Patella Translation: 1 Left Knee Skin/Wound: No ecchymosis, No erythema, No swelling Homans Sign: No Knee ROM: No ROM-Extension -20 to 0 (lacking 15), No ROM-Flexion 0-140 (108) Stability: NML: Anterior Drawer, NML: Posterior Drawer, NML: Varus 30, 1+: Valgus 30 (3mm medial gapping D/T joint space narrowing) Apprehension with Lateral Translation: No Patella Translation: 1 Patella Grind: Yes KNEE: varicose veins BL BL lower leg edema unable to palpate posterior tibial pulse unable to palpate pedal pulse no patellar instability Office Procedures Iovera Details:: Preoperative diagnosis : right knee pain, OA of right knee Postoperative diagnosis: Same Procedure: Cryotherapy with Iovera device to anterior femoral cutaneous nerve and 2 branches of the infrapatellar saphenous nerve III nerves in total Description of procedure: Patient was brought back to the procedure room the operative extremity was identified by both patient and physician. The PIP flexion crease was measured to the midpoint of the patella and this distance was divided in 3 resulting in 10 cm location proximal to the midpoint of the patella . This line was extended medial and lateral to the extent of the edges of the patella. This was our treatment line for the anterior femoral cutaneous nerve. A second treatment line was made 5 cm medial to the inferior pole of the patella and 5 cm distally. The leg was prepped with alcohol and Betadine. Lidocaine with epi was used along the treatment lines. Using the Iovera device treatment lines were treated with 1 minute cycles. Reproduction of paresthesias was monitored in the area of nerve distribution. Once all 3 nerves were treated across the 2 treatment lines patient was cleaned and a light dressing with 4 x 4 and Ritchie wrap was applied. Patient tolerated the procedure without complication. Supplemental Info 01/27/2018 x-ray left knee: Severe tricompartmental arthrosis [id number] medial with large osteophytes Assessment & Plan Problems 1. Chronic pain of right knee M25.561; G89.29 2. Primary osteoarthritis of left knee M17.12 Plan Reviewed the pre-operative plans with the patient. Risks and benefits of the procedure were fully explained, including but not limited to infection, neurovascular injury, continued pain, arthritis, stiffness, need for further surgery, re-injury, DVT, PE, general risks of anesthesia, and loss of limb or life. The patient understands all the risks and does wish to proceed with written consent. Advised to elevate legs after surgery and to be compliant with wearing ABAD Hose post-op. Follow up two weeks post-op or sooner if pain, swelling, numbness or associated symptoms, or concerns develop. All questions answered. Patient in agreement of plan. Orders Orders: Iovera Today M25.569 Plan Detail Goals Decrease pain/radiculopathy Increase ability to stand/walk Improve sleep Barriers DDD Disc bulge Facet arthropathy Coding Level of Care Code Attention Financial Administrative Assistant Diagnoses Chronic pain of right knee M25.561; G89.29 ??Chronicity: chronic Primary osteoarthritis of left knee M17.12 I have re-examined the patient. There are no clinical changes since date of exam Procedure Criteria Procedure Type: Elective COVID Risk Discussion: The surgeon/proceduralist and patient have discussed in detail the risk of exposure to and/or potential harm posed by the COVID-19 virus with having a surgery/procedure at this time versus the risk of delaying the surgery/procedure. It is not possible to know either the risk of delaying the surgery or procedure or chance of getting an infection with perfect accuracy, but a joint decision was made between the patient and the surgeon/proceduralist to proceed at this time with the scheduled surgery/procedure as indicated on the consent form.
[2020-06-19] MEDS: Cefazolin 2 GM in 0.9% Normal Saline 100 ML IV (07:25)
[2020-06-19] MEDS: dexAMETHasone 10 MG/ML Vial IV (07:34)
[2020-06-19] MEDS: Lactated Ringers 1,000 ML 100 ML IV (07:47)
[2020-06-19] MEDS: Betamethasone/Betamethasone 30 MG/5 ML Vial (09:00)
[2020-06-19] MEDS: 0.9% Normal Saline (Pres. free 10 ML Vial (09:00)
[2020-06-19] MEDS: Bupivacaine Mpf 0.5% 30 ML VIAL (09:00)
[2020-06-19] MEDS: Epinephrine (1 mg/ml) 1 MG/ML VIAL (09:00)
--- NOTE | 2020-06-19 09:51 | RAD_ITS ---
STUDY: X-RAY - LEFT KNEE REASON FOR EXAM: Female, 69 years old. Post op knee replacement. TECHNIQUE: 2 view(s) of the knee. COMPARISON: None. FINDINGS: Normal visualized distal femur. Normal visualized proximal tibia and fibula. Normal proximal tibiofibular articulation. The patient is status post total knee replacement. There is good alignment. Postoperative soft tissue changes. RAD/Knee 1 or 2 Views IMPRESSION: Status post total knee replacement. There is good alignment. Postoperative soft tissue changes. Electronically Signed: Hamlet Reyes, at 10:32 EST , Service support ,
--- NOTE | 2020-06-19 09:58 | DCINST_ITS ---
Discharge Diet: No Restrictions Weight Bearing Status: Weight bearing as tolerated Keep extremity elevated above heart level: Operative Extremity Call your doctor if you observe: Shortness of breath, Chest pain Additional Instructions: Ice and elevate one week while not ambulating. Ambulation is encouraged. Weightbearing as tolerated. Use assistive devise for stability. Encourage FULL knee extension and flexion 1 time EVERY time you get up and down and MULTIPLE times per day. No showering 72 hours after surgery. Begin showering postop day #3. Remove the dressing prior to shower and gently wash with warm water and antibacterial soap then pat dry and place abdominal pad (or plain gauze) and ABAD hose over top. This is to be done daily. Do not submerge for 3 weeks. If not showering daily after the initial 72 hours then you must clean incision and change dressing daily. Do not allow animals near the incision area. Keep clean. Follow anticoagulation recommendations as prescribed. Do not take any NSAIDs while on blood thinner. Do not take any additional narcotic pain medication other than what was prescribed on you surgery day without discussing with physician. Start physical therapy. If you are not currently scheduled for physical therapy or you are unsure of appointment time please call office [facility] to arrange. Call Dr. Pino with any concerns. Allergies/Adverse Reactions: Allergies clarithromycin [From Biaxin] Allergy (Verified 06/04/20 14:10) Hives vancomycin Allergy (Verified 06/04/20 14:10) Itching latex Adverse Reaction (Mild, Verified 06/04/20 14:10) rash amoxicillin trihydrate [From Augmentin] Adverse Reaction (Verified 06/04/20 14:10) Upset Stomach potassium clavulanate [From Augmentin] Adverse Reaction (Verified 06/04/20 14:10) Upset Stomach Medications to take at Discharge Acetaminophen [Tylenol Extra Strength] 1,000 mg PO Q6H PRN #100 tab 06/19/20 Apixaban [Eliquis] 2.5 mg PO BID #30 tab 06/19/20 Cephalexin [Keflex] 1,000 mg PO Q8 #4 cap 06/19/20 Ondansetron HCl [Zofran] 4 mg PO Q6H PRN PRN 5 Days #20 tab 06/19/20 RX: Oxycodone [Oxyir] 5 mg PO Q4H PRN PRN #60 tablet 06/19/20 The following prescriptions were given: Apixaban [Eliquis] 2.5 mg PO BID #30 tab Transmission Status: Pending to [facility] Cephalexin [Keflex] 1,000 mg PO Q8 #4 cap Transmission Status: Pending to [facility] RX: Oxycodone [Oxyir] 5 mg PO Q4H PRN PRN #60 tablet PRN Reason: Pain Score 6-10 Transmission Status: Sent to [facility] Acetaminophen [Tylenol Extra Strength] 1,000 mg PO Q6H PRN #100 tab Transmission Status: Pending to [facility] Ondansetron HCl [Zofran] 4 mg PO Q6H PRN PRN 5 Days #20 tab PRN Reason: Nausea Transmission Status: Pending to [facility] Primary Care Physician: Dashawn Dexter DO [Primary Care Provider] - Test Results: Test results from this visit will be discussed in further detail at your follow- up appointment, if applicable. Please Follow Up With: Kali Pino DO - 2 weeks
[2020-06-19] MEDS: Lactated Ringers 1,000 ML 125 ML IV (10:18)
--- NOTE | 2020-06-19 10:33 | OP.PCM_ITS ---
Report of Operation Date of Procedure: 06/19/20 Description of Surgical Findings:: Preoperative diagnosis: Left knee DJD Postoperative diagnosis: Same Procedure: Left total knee arthroplasty CT guided Robotic Assisted Implant: Susana triathlon cemented femoral component size3, cemented tibial baseplate size 3, cemented asymmetric patella size 29, polyethylene X3 size 9 CS Anesthesia: General with adductor canal block Tourniquet time: 12 minutes at 300 mmHg Complications: None Condition: Stable to PACU Estimated blood loss: 200 cc Indication for procedure: This is a 69-year-old female with long standing degenerative joint disease of the knee who has failed conservative treatment and wished to proceed with elective total knee arthroplasty. Risk benefits and alternatives were reviewed including; risk of bleeding, infection, nerve artery and tissue damage, continued pain, postoperative stiffness, venous thromboembolism, need for postoperative rehabilitation, mechanical feel to the knee, and expected postoperative course. The operative CT and templating was performed with component sizing Procedure: The patient was met in the preoperative holding area. The operative extremity was identified by both patient and physician and was marked. Patient was met by anesthesia. An adductor canal block was placed by anesthesia postoperatively the patient was brought back to the operating room on a wheeled cart and transferred to the operating table in the supine position. Anesthesia was started. A well-padded tourniquet was placed on the operative extremity. The patient was prepped and draped in the usual sterile fashion. A timeout was called to ensure the proper patient procedure and extremity were being contemplated. An Esmarch was used to exsanguinate the extremity. The tourniquet was inflated. A 10 blade scalpel was used to make a midline incision down through the skin and subcutaneous tissue. Skin retractors placed. Bovie was used to perform meticulous hemostasis. full-thickness flaps were elevated medial and lateral along the joint capsule. A deep blade scalpel was used to perform a medial parapatellar arthrotomy. The knee was brought to full extension. A Bovie was used to release the soft tissues off the most proximal aspect of the medial tibial plateau, a three-quarter inch curved osteotome was also used for this process. The infrapatellar fat pad was excised. The superior fat pad was excised partially anteriorolateraly and portion the anterioromedial pad was elevated from the femur. At this point our intra- articular femoral array was placed of a 45 degree angle proximal and posterior to the medial epicondyle. Our tibial array was placed greater than 1 hands breath below the incision at a 20 degree angle stab incisions were used for this case were attached and checked with the robotic software. Tourniquet was let down. At this point registration rodney were taken throughout the knee as well as checkpoints placed in the femur and tibia once the knee was registered then tensioned the medial and lateral ligaments in extension and 90 degrees of flexion. We then used these numbers to adjust our components within parameters to balance the knee in both flexion and extension once this was done on our monitor we then proceeded with using the robotic arm to make our tibial plateau cut and anterior posterior and chamfer cuts and distal on the femur we then trialed and achieved the desired plan with a well-balanced knee. Lug holes were drilled in the femur the tibia preparation was completed with a fin punch and the patella was prepared by first using a caliper to ensure sufficient bone stock and a patellar reamer to remove the desired amount of bone locals were drilled for an asymmetric poly-. We then brought the knee through range of motion with excellent patellar tracking. We thoroughly irrigated the knee with a trial components were removed a posterior capsular injection with her standard cocktail was performed the aqua Mantis was also used to aid in hemostasis. Betadine rinse was allowed to sit and washed out components were cemented. Aricept rinse was then used followed by several more rate liters of irrigation after it was allowed to sit. Joint capsule was closed with #1 Ethibond [id number] followed by Vicryl in the subcutaneous tissues staple in the skin arrays and checkpoints were removed prior to closure all counts were correct stab incisions were closed with a stable standard dressing in the form of Mepilex for the main incision Xeroform 4 x 4 and Tegaderm over pin site holes. Thigh-high ABAD hose applied over top of dressing. Patient tolerated the procedure well and was directed to PACU in stable condition no intraoperative complications
[2020-06-19] MEDS: Cefazolin 1 GM/50 ML BAG IV (12:01)
--- NOTE | 2020-06-19 13:38 | SUR.PHASEII ---
Patient was dizzy when she first got up to walk with physical therapy. She was able to eventually walk to the bathroom with the assist of PT and this nurse. She voided in the restroom and then walked back. PT was going to assist her with the exercises to do at home.
[2020-06-19] MEDS: Ketorolac 30 MG/ML Syringe 15 MG IV (15:20)
[2020-06-19] MEDS: oxyCODONE 5 MG Tablet PO (15:20)
== END 2020-06-19 16:26 | disposition home or self-care (01) ==
LOC: SDC 05:25 → AC 05:25
PROVIDERS: Anesthesiology; PCP Family Medicine; Referring Provider Orthopaedic Surgery; Visit Provider Orthopaedic Surgery
PROC: 0SRD0JZ Replacement of Left Knee Joint with Synthetic Substitute, Open Approach (ICD-10-PCS; CPT 27447; principal; 2020-06-19 07:00)
DX: M17.0 Bilateral primary osteoarthritis of knee (principal); G89.29 Other chronic pain; Z20.828 Contact with and (suspected) exposure to other viral communicable diseases; I10 Essential (primary) hypertension; K21.9 Gastro-esophageal reflux disease without esophagitis; Z78.0 Asymptomatic menopausal state; Z79.899 Other long term (current) drug therapy; Z86.718 Personal history of other venous thrombosis and embolism
CPT/HCPCS: 01402; 27447; 64447; 36415; 73560; 82962; 83735; 85610; 85730; 86850; 86900; 86901; 87081; 87635; 97162; C1776; C9803; J7120; A4216; J0702; J2405; J3490; U0003

== ENCOUNTER 2020-07-30 10:00 | Outpatient (RCR) | payer MEDICARE, SELFPAY ==
[2020-03-28 08:21] VITALS: BMI 28.5
[2020-06-19 06:03] VITALS: BMI 29.9
--- NOTE | 2020-06-26 09:10 | HP.PTEVAL ---
Patient's Visit Information GEOVANNA COREAS is a 69 year old F referred to Physical Therapy by Dr. Kali Pino DO with a diagnosis of L TKA - Mane. Date of Evaluation: 06/25/20 Physical Therapist: Feng Resendez DPT - Visit Plan Frequency: 2x /Week Duration: 6 Weeks Plan: Inc L knee ROM. Strengthen LLE focusing on hamstring and quad strengthening w/in available range. Gait training to normalize gait pattern. - Subjective Pt presents this date for eval of L TKA. DOS: 06/19/2020. Has been dealing w/ L knee pain since she was 39 when she had her ACL reconstructed. Uses ice and Tylenol for her pain and believes it helps. Takes oxycodone at night to help with pain throughout the night. Wakes up occassionally throughout the night because of pain. Sleeps mostly on her back. Places a small pillow under her knee to make it more comfortable. Has 1 FAREED home with BHR, states this steo is not an issue. No steps to deal with once inside home. Works at [email or web address]. Is off until September when she plans on returning. Outside of work she golfs and bowls. Plans to return to these activities. Returns to the Dr on 07/02. Denies numbness and tingling. - Pain L knee Pain Intensity (Out of 10): 0 Pain Intensity Range: 0, 5 - Objective POSTURE: Pt stands w/ dec WB on her LLE and slightly flexed L knee. PALPATION: Tenderness noted generally throughout L knee. Inc swelling also noted generally throughout L knee. ROM: L knee 0-8-72 deg, R knee 0-0-125 deg. Pt reports inc pain/discomfort at end range of L knee. L hip flex 104, ext 2 deg. R hip flex 105, ext 10 deg. MMT: L knee flex 7.4 lbs, ext 6.1 lbs. R knee flex 21.7 lbs, ext 32.5 lbs. L hip flex 17.2 lbs, ext 19.2 lbs. R hip flex 17.3 lbs, ext 26.3 lbs. NEURO: Sensation to light touch intact. DTRs not tested. GAIT: Pt ambulates w/ R SPC. Displays dec mark, dec WB on LLE, dec L stance phase, and lacks full L knee ext. TUG time of 18.6 seconds. EDEMA: Midpatella girth 18 inches. 6 inches suprapatellar girth 20 inches. WOMAC score: 53/96 - Goals Goal 1:: LTG: Pt to be I w/ HEP. Goal Time Frame: 4-6 Weeks Goal 2:: STG: Pt will display inc L knee ROM to at least 0-5-100. Goal Time Frame: 2-4 Weeks Goal 3:: LTG: Pt will display inc L knee ROM to at least 0-0-120. Goal Time Frame: 4-6 Weeks Goal 4:: STG: Pt will display inc L knee strength to at least 50% of R knee. Goal Time Frame: 2-4 Weeks Goal 5:: LTG: Pt will display inc L knee strength to at least 90% of R knee. Goal 6:: LTG: Pt will display dec risk for falls while ambulating by completing the TUG in less than 12 seconds. Goal Time Frame: 4-6 Weeks - Rehabilitation Potential Physical Therapy Diagnosis: S/s consistent w/ L TKA. Pt displays inc pain, dec L knee ROM, dec LLE strength, and dec ability to safely ambulate. PT intervention indicated to address stated deficits and inc L knee ROM, inc LLE strength, inc ability to safely ambulate, and facilitate a dec in pain. Rehabilitation Potential: Good - Anticipated Interventions Patient/Client Instruction: Educate patient on: Condition, Plan of Care, Risk Factors, Benefits of Fitness Program For the Purpose of:: To improve safety, To improve health and function, To foster healthy habits, To improve self management, To prevent re-injury Therapeutic Exercise to Include: Strength training, Endurance training, Balance training, Flexibilty training, Gait and locomotor training, Passive ROM, Active ROM For the Purpose of:: To decrease pain, To decrease swelling/inflammation, To increase ROM, To improve muscle performance and motor function, To increase tolerance to activity/condition/position, To improve ability of physical actions for home/community/work/leisure, To improve gait and locomotor functions, To increase flexibility/ROM, To improve safety with gait Cryotherapy (ice pack, ice massage): Yes Thermo therapy (hot pack): Yes Thank you for the opportunity to evaluate your patient. For Medicare and Medicare HMO plans, please review the plan of care and approve it. It will need to be FAXED BACK to us at [phone] for Medicare purposes. For Medicare only, by signing this I certify the plan of care. Please let me know if there are questions or concerns regarding this plan of care. Physician Signature: Date:
--- NOTE | 2020-07-30 14:10 | HP.PTDCSUM ---
It has been my pleasure to treat GEOVANNA COREAS referred by Dr. Kali Pino DO, with the diagnosis of L TKA - Mane 06/19/20 for a total of 10 visit(s). Discharge Date: Please see the following information for a summary of their discharge status. Subjective: Pt is ready to be finished with PT L knee Pain Intensity (Out of 10): 2 L HIP Pain Intensity (Out of 10): Unrated L ANKLE Pain Intensity (Out of 10): 4 % Improvement: 80 Objective/Function: L knee pain ranges from 0-2/10. L knee ROM: 0-5-108 degrees. L knee MMT: 4+/5 throughout. Pt is I with HEP. Rx goals achieved Goal 1:: LTG: Pt to be I w/ HEP. Goal Progress: Goal Met Goal 2:: STG: Pt will display inc L knee ROM to at least 0-5-100. Goal Progress: Goal Met Goal 3:: LTG: Pt will display inc L knee ROM to at least 0-0-120. Goal Progress: Progressing Goal 4:: STG: Pt will display inc L knee strength to at least 50% of R knee. Goal Progress: Goal Met Goal 5:: LTG: Pt will display inc L knee strength to at least 90% of R knee. Goal Progress: Goal Met Goal 6:: LTG: Pt will display dec risk for falls while ambulating by completing the TUG in less than 12 seconds. Goal Progress: Goal Met Plan: Discharge If there are questions or concerns regarding this patient's physical therapy, please feel free to call me at [phone]. Thank you for the referral of this patient. Sincerely, Alexsander Fonseca, PT, ATC
== END 2020-07-30 15:37 | disposition home or self-care (01) ==
LOC: PT 10:00
PROVIDERS: PCP Family Medicine; Referring Provider Orthopaedic Surgery; Visit Provider Orthopaedic Surgery
DX: Z47.1 Aftercare following joint replacement surgery (principal); Z96.652 Presence of left artificial knee joint
CPT/HCPCS: 97110; 97140; 97161; 97164

== ENCOUNTER → 2020-08-16 12:59 | Outpatient (CLI) | payer MEDICARE, SELFPAY ==
--- NOTE | 2020-08-16 13:05 | RAD_ITS ---
HISTORY: Segmental and somatic dysfunction of the pelvic region. Exam is AP pelvis and 2 views of the left hip. Comparison study is a CT scan of the abdomen and pelvis from February 21, 2015. 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 Bony alignment is normal. Both femoral heads are seated within their respective acetabula. An enthesophyte is present off of the superior lateral aspect of the left greater trochanter which is likely gluteus medius tendinosis and calcific tendinitis, and unchanged since the CT. Left hemipelvic hyperdense linear structures appear to be within bowel and vessels from the CT scan, and are unchanged. Degenerative disc disease at the L4-L5 and L5-S1 level remaining. RAD/HIP, UNI W/ Pelvis 2-3 Views IMPRESSION: No acute fracture or dislocation. 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 at 0613 Reported and signed by: Tremayne Carrero MD Electronically Signed: Tremayne Carrero MD at 6:12 EST Tel , Service support ,
== END ==
PROVIDERS: PCP Family Medicine; Referring Provider Chiropractor; Visit Provider Chiropractor
DX: M99.05 Segmental and somatic dysfunction of pelvic region (principal); M51.36 Other intervertebral disc degeneration, lumbar region
CPT/HCPCS: 73502

== ENCOUNTER → 2021-03-28 10:44 | Outpatient (CLI) | payer MEDICARE, SELFPAY ==
[2021-02-18 08:28] VITALS: BMI 29.9
--- NOTE | 2021-03-28 10:48 | BI_ITS ---
MAMMOGRAPHY - BILATERAL SCREENING REASON FOR EXAM: Female, 70 years old. Routine annual screening examination. PERTINENT HISTORY: Non-contributory. TECHNIQUE: Digital bilateral breast thea (3D mammographic acquisition) in the CC and MLO projections. 2-D mediolateral oblique (MLO) and craniocaudad (CC) views of both breasts were obtained. CAD: Full Field Digital Mammography with Computer Added Detection was performed. COMPARISON: Comparison is made with prior study dated 10/20/2018 and 01/30/2017. FINDINGS: Breast Composition: The breasts are heterogeneously dense, which may obscure small masses. There are no dominant masses or suspicious calcifications. Stable calcified nodules in the retroareolar areolar region of the right breast. No other significant abnormalities are identified. There has been no significant change since the prior study. BI/SCRN MAMM (CAD)W/THEA BILAT IMPRESSION: Stable bilateral screening mammogram. Yearly follow-up mammogram recommended. (A) ASSESSMENT CATEGORY: BIRADS Category 2: Benign. A letter regarding these results will be sent to the patient by the facility within 30 days. Approximately 10% of breast cancers are not detected by mammography. A normal mammogram should not delay biopsy of a clinically suspicious abnormality. [id number] Electronically Signed: Hamlet Reyes MD at 11:40 EDT , Service support ,
--- NOTE | 2021-03-28 11:04 | BD_ITS ---
STUDY: DUAL ENERGY X-RAY ABSORPTIOMETRY / DXA REASON FOR EXAM: Female, 70 years old. [id number]. Patient is postmenopausal. TECHNIQUE: Bone Mineral Density (BMD) measurements of lumbar spine and bilateral hips were obtained. COMPARISON: Comparison is made with prior study 03/30/2014. FINDINGS: Lumbar Spine (L1-L4): g/cm2 (1.164) / T-score (1.1) / Z-score (3.3) Findings are suggestive of normal bone density with a low fracture risk. Left Femur Total: g/cm2 (0.854) / T-score (-0.7) / Z-score (0.9) Left Femoral Neck: g/cm2 (0.766) / T-score (-0.7) / Z-score (1.1) Right Femur Total: g/cm2 (0.845) / T-score (-0.8) / Z-score (0.8) Right Femoral Neck: g/cm2 (0.752) / T-score (-0.9) / Z-score (1.0) The T-Scores on the most recent prior examination were: Lumbar Spine (L1-L4): There has been worsening of bone density since the previous examination. Left Femur Total: which represents a worsening of 8.5%. Right Femur Total: which represents a worsening of 4.5%. BD/Dexa Bone Density Study IMPRESSION: The patient is considered normal as outlined below according to World Prince Organization (WHO) criteria with a low fracture risk. There has been worsening of bone density since the previous examination. Reference Information: The T-score is the number of standard deviations above or below the standard which is normal for young adults at their peak bone mineral density. The World Health Organization (WHO) interprets the T-scores as follows: Above -1 Normal bone density Between -1 and -2.5 Osteopenia Equal to / or below -2.5 Osteoporosis As a practical clinical guideline, osteopenia may be graded as follows: Mild -1 through -1.5 Moderate -1.6 through -2.0 Severe -2.1 through -2.4 The Z-score is the number of standard deviations above or below age-matched controls. A Z-score of less than -1.5 would be considered abnormal. References: 1. NIH Osteoporosis and Related Bone Diseases www osteo.org 2. International Society for Clinical Densitometry www iscd.org 3. National Osteoporosis Foundation www nof.org Electronically Signed: Hamlet Reyes MD at 11:58 EDT , Service support ,
== END ==
PROVIDERS: PCP Family Medicine; Referring Provider Family Medicine; Visit Provider Family Medicine
DX: Z12.31 Encounter for screening mammogram for malignant neoplasm of breast (principal); Z13.820 Encounter for screening for osteoporosis; Z78.0 Asymptomatic menopausal state
CPT/HCPCS: 77063; 77067; 77080

== ENCOUNTER → 2021-07-08 | Outpatient (CLI) | payer MEDICARE, SELFPAY | END | disposition home or self-care (01) | LOC: LABSPEC 16:44 | PROVIDERS: PCP Family Medicine; Referring Provider Urology; Visit Provider Urology | DX: R39.15 Urgency of urination (principal) | CPT/HCPCS: 87077; 87086; 87088; 87186 ==

== ENCOUNTER 2021-10-02 11:46 | Outpatient (CLI) | payer MEDICARE, SELFPAY ==
--- NOTE | 2021-10-02 11:51 | US_ITS ---
STUDY: RENAL ULTRASOUND - COMPLETE REASON FOR EXAM: Female, 71 years old. UTI TECHNIQUE: Ultrasound evaluation of the kidneys was performed with real-time and static mitchell-scale imaging. COMPARISON: Comparison is made with prior study dated 10/29/2012. FINDINGS: RIGHT KIDNEY: Normal location of the right kidney, which is normal in size. The right kidney measures 11.17 x 5.4cm x 5.6 cm. There is a normal cortex of the right kidney. The renal cortex measures 2.1 cm. There is no right renal mass or cyst. There are no right renal calculi. There is no right hydronephrosis. DISTAL RIGHT URETER: There is non-visualization of the distal right ureter. There is no demonstrated right ureterovesical junction calculus. There is a visualized right ureteral jet. LEFT KIDNEY: Normal location of the left kidney, which is normal in size. The left kidney measures 11 cm x 5.3 cm x 5.4 cm. There is a normal cortex of the left kidney. The renal cortex measures 1.6 cm. There is no left renal mass or cyst. There are no left renal calculi. There is no left hydronephrosis. DISTAL LEFT URETER: There is non-visualization of the distal left ureter. There is no demonstrated left ureterovesical junction calculus. There is a visualized left ureteral jet. BLADDER: The distended urinary bladder has a volume of 446 ml. There is a normal wall thickness of the distended urinary bladder. There is no demonstrated mass within the urinary bladder. There are no demonstrated bladder calculi. US/Kidney and Bladder IMPRESSION: Normal ultrasound of the kidneys and urinary bladder. Electronically Signed: Hamlet Reyes MD at 14:54 EST ,
== END 2021-10-02 23:59 | disposition home or self-care (01) ==
LOC: US 11:50
PROVIDERS: PCP Family Medicine; Referring Provider Urology; Visit Provider Urology
DX: N39.0 Urinary tract infection, site not specified (principal)
CPT/HCPCS: 76770

== ENCOUNTER → 2022-05-22 | Outpatient (CLI) | payer MEDICARE, SELFPAY ==
--- NOTE | 2022-05-22 11:48 | BI_ITS ---
MAMMOGRAPHY - BILATERAL SCREENING REASON FOR EXAM: Female, 71 years old. Routine annual screening examination. PERTINENT HISTORY: Non-contributory. TECHNIQUE: Digital bilateral breast thea (3D mammographic acquisition) in the CC and MLO projections. 2-D mediolateral oblique (MLO) and craniocaudad (CC) views of both breasts were obtained. CAD: Full Field Digital Mammography with Computer Added Detection was performed. COMPARISON: Comparison is made with prior study 03/28/2021 and 10/20/2018. FINDINGS: Breast Composition: The breasts are heterogeneously dense, which may obscure small masses. There are no dominant masses or suspicious calcifications. Stable benign appearing bilateral axillary nodes. No other significant abnormalities are identified. There has been no significant change since the prior study. BI/SCRN MAMM (CAD)W/THEA BILAT IMPRESSION: Stable bilateral screening mammogram. Yearly follow-up mammogram recommended. (A) ASSESSMENT CATEGORY: BIRADS Category 2: Benign. A letter regarding these results will be sent to the patient by the facility within 30 days. Approximately 10% of breast cancers are not detected by mammography. A normal mammogram should not delay biopsy of a clinically suspicious abnormality. [id number] Electronically Signed: Hamlet Reyes MD at 12:33 EDT ,
== END | disposition home or self-care (01) ==
LOC: OPBI 11:46
PROVIDERS: PCP Family Medicine; Visit Provider Family Medicine
DX: Z12.31 Encounter for screening mammogram for malignant neoplasm of breast (principal)
CPT/HCPCS: 77063; 77067

== ENCOUNTER 2022-10-23 13:30 | Outpatient (RCR) | payer MEDICARE, SELFPAY ==
--- NOTE | 2022-10-02 14:29 | HP.PTEVAL_ITS ---
Patient's Visit Information GEOVANNA COREAS is a 72 year old F referred to Physical Therapy by MAXIM Holm with a diagnosis of Bilateral Pes Planus. Date of Evaluation: 10/02/22 Physical Therapist: Gracie Fernandez DPT - Visit Plan Frequency: 1x/Week Duration: 4 Weeks Plan: Pt will stretch, get new shoes/inserts, night splint- will attempt for 3 weeks then follow up. If she does not see improvements she will call and be reassessed with 2x 4 weeks with strength and proprioceptive exercises with mod of US. HEP Given IE: Shoe education, Night Splint, Gastroc Stretch with Towel, Step Stretch, Standing Gastroc Stretch - Subjective Patient reports that she got new shoes about 10 months ago she went for a long walk and then got home and her left ankle swelled up. It never went away- x- rays were negative. Went to see Cameron Renae who thinks she is having tendon issues. She had a left TKR 2 years ago and has had cramps that go all the way down her leg and under the foot- always when she rolls over in bed. Pain is located in posterior medial malleolus- if she moves it around a lot its fine. 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 Exercise: bowling, golf (walking/cart) and walking but no exercises. She has a hot tub that she makes it feel better. Pain does not radiate down to the toes. Worst: 8/10- it will wake her up Eases: move it around Best: 0/10. Describes the pain as dull and achy. Has had some N/T since the knee replacement. Vein Ablation at least 10 years ago. She has never had ankle issues before. No pain in the right LE. PMHx: 09/04/22 no changes since ortho. - Objective Posture: fair throughout IE. Gait: no deviation noted- good heel/toe pattern does have pes planus bilateral. Palpation: tender medially malleolus posterior. SLS: 15 sec does have moderate increase muscle activation- mod pes planus. Eccentric Heel Raise: able but increases discomfort. ROM: WFL with the exception of DF: 5 degrees, Strength: Core: fair, Hip: 4+/5, Knee: 5/5 Ankle: 4+/5 in available range. Flex: Gastroc: severe, HS: moderate. - Balance/Special Test Scores Lower Extremity Functional Score: 64 - Goals Goal 1:: Patient will be I with HEP and progression Goal Time Frame: 4-6 Weeks - Rehabilitation Potential Physical Therapy Diagnosis: Patient presents with hypomobility- she has decreased ankle ROM, strength, proprioception and flex leading to abnormal gait and dec ability to participate in ADL's - Anticipated Interventions Patient/Client Instruction: Educate patient on: Benefits of Fitness Program Therapeutic Exercise to Include: Strength training, Endurance training, Balance training, Body mechanics, Postural training, Flexibilty training, Gait and locomotor training, Neuromotor development, Dynamic Lumbar Stabilization, Scapular Strength/Stabilization Thank you for the opportunity to evaluate your patient. For Medicare and Medicare HMO plans, please review the plan of care and approve it. It will need to be FAXED BACK to us at [phone] for Medicare purposes. For Medicare only, by signing this I certify the plan of care. Please let me know if there are questions or concerns regarding this plan of care. Physician Signature: Date:
--- NOTE | 2023-02-23 13:02 | HP.PT.NRP ---
Patient Information Patient Information: GEOVANNA COREAS was seen in my office for initial evaluation on 10/02/22. The following Plan of Care was established for this patient: POC Established Initial Frequency: 1x/Week Initial Duration: 4 Weeks Anticipated Interventions Patient/Client Instruction: Educate patient on: Benefits of Fitness Program Therapeutic Exercise to Include: Strength training, Endurance training, Balance training, Body mechanics, Postural training, Flexibilty training, Gait and locomotor training, Neuromotor development, Dynamic Lumbar Stabilization and Scapular Strength/Stabilization Last Seen Last Seen: This patient was last seen in our office . Pertinent comments regarding their Physical therapy will appear below: Patient to follow up with MD and is appropriate to be d/c from PT. At this point I will be discontinuing this patient from physical therapy. I would be happy to see this patient again in the future if found appropriate by the physician. Thank you! Gracie Fernandez, MARKT Balance/Gait/Functional tests Balance/Special Test Scores Lower Extremity Functional Score: 64
== END 2022-10-23 19:00 | disposition home or self-care (01) ==
LOC: PT 13:30
PROVIDERS: PCP Family Medicine; Referring Provider Physician Assistant; Visit Provider Physician Assistant
DX: M21.41 Flat foot [pes planus] (acquired), right foot (principal); M21.42 Flat foot [pes planus] (acquired), left foot; M76.829 Posterior tibial tendinitis, unspecified leg
CPT/HCPCS: 97110; 97161

== ENCOUNTER → 2022-10-23 | Outpatient (CLI) | payer MEDICARE, SELFPAY ==
--- NOTE | 2022-10-23 15:35 | VDLE_ITS ---
Reason For Study: Pain RIGHT LEFT CFV is compressible, spontaneous, phasic, GSV is normal. competent and demonstrates normal CFV is compressible, spontaneous, phasic, augmentation. competent, and demonstrates normal Procedure augmentation. This is a venous duplex using B-mode, color FV is compressible, spontaneous, phasic, flow and spectral Doppler. competent and demonstrates normal Exam performed in department. augmentation. A preliminary report was called and/or faxed POP V is compressible, spontaneous, phasic, to Dr. Lerma. competent and demonstrates normal augmentation. T/P Trunk is compressible. PTV is compressible. LT PerV is compressible. VL/Venous Duplex US, Unilateral Interpretation Summary There is no evidence of left lower extremity deep vein thrombosis. Left great s aphenous vein appears patent and compressible segmentally. Normal flow patterns right common femoral vein Ordering Physician: Christie Lerma Referring Physician: Dashawn Dexter Performed By: Ruby Mckeon RVT
== END | disposition home or self-care (01) ==
LOC: CVS 15:33
PROVIDERS: PCP Family Medicine; Referring Provider Family Medicine; Visit Provider Family Medicine
DX: M79.605 Pain in left leg (principal); I83.93 Asymptomatic varicose veins of bilateral lower extremities
CPT/HCPCS: 93971

== ENCOUNTER → 2023-08-18 | Outpatient (CLI) | payer MEDICARE, SELFPAY ==
--- NOTE | 2023-08-18 13:11 | BI_ITS ---
MAMMOGRAPHY - BILATERAL SCREENING REASON FOR EXAM: Female, 73 years old. Routine annual screening examination. PERTINENT HISTORY: Non-contributory. TECHNIQUE: Digital bilateral breast thea (3D mammographic acquisition) in the CC and MLO projections. 2-D mediolateral oblique (MLO) and craniocaudad (CC) views of both breasts were obtained. CAD: Full Field Digital Mammography with Computer Added Detection was performed. COMPARISON: Comparison is made with prior study dated May 22, 2022 and March 28, 2021. FINDINGS: Breast Composition: The breasts are heterogeneously dense, which may obscure small masses. There are no dominant masses or suspicious calcifications. Stable calcified nodular density in the retroareolar areolar region of the right breast. No other significant abnormalities are identified. There has been no significant change since the prior study. BI/SCRN MAMM (CAD)W/THEA BILAT IMPRESSION: Stable bilateral screening mammogram. Yearly follow-up mammogram recommended. (A) ASSESSMENT CATEGORY: BIRADS Category 2: Benign. A letter regarding these results will be sent to the patient by the facility within 30 days. Approximately 10% of breast cancers are not detected by mammography. A normal mammogram should not delay biopsy of a clinically suspicious abnormality. [id number] Electronically Signed: Hamlet Reyes MD at 10:38 EST ,
== END | disposition home or self-care (01) ==
LOC: OPBI 13:11
PROVIDERS: PCP Family Medicine; Referring Provider Nurse Practitioner Women's Health; Visit Provider Nurse Practitioner Women's Health
DX: Z12.31 Encounter for screening mammogram for malignant neoplasm of breast (principal)
CPT/HCPCS: 77063; 77067

== ENCOUNTER 2023-10-19 14:32 | Observation (INO) | payer MEDICARE, SELFPAY ==
--- NOTE | 2023-10-06 12:15 | EKG12_ITS ---
Test Reason : PREOP Blood Pressure : / mmHG Vent. Rate : 078 BPM Atrial Rate : 078 BPM P-R Int : 168 ms QRS Dur : 062 ms QT Int : 376 ms P-R-T Axes : 023 012 063 degrees QTc Int : 428 ms Normal sinus rhythm Low voltage QRS Nonspecific ST abnormality Abnormal ECG Confirmed by KARI ANDINO, TRENT ([id number]), publications editor RENE GOLDSTEIN ([id number]) on 10/12/2023 10:02:17 AM Referred By: Jose F Suero Confirmed By:ONEYDA PIERCE MD
[2023-10-06 13:18] LABS: Hemoglobin 13.5 g/dL (12.0-15.0); Mean Corp Hgb Conc 32.9 g/dL (32-36); Mean Corpuscular Hgb 29.9 pg (27.0-32.0); Mean Corpuscular Volume 90.7 fL (81-99); Mean Platelet Vol. 10.3 fl (6.2-12.0); Platelet Count 191 K/mm3 (150-450); RBC Distribution Width CV 14.6 % (11.6-14.6); Red Blood Count 4.52 M/mm3 (4.2-5.4); White Blood Count 5.7 K/mm3 (4.4-11.0)
[2023-10-06 13:51] LABS: Anion Gap 6 (5-15); BUN 16 mg/dL (7-18); BUN/Creat Ratio 19.9 RATIO (10-20); Calcium,Total 9.2 mg/dL (8.5-10.1); Chloride 109 mmol/L (98-107); EST Glomerular Filtration Rate 74 mL/min (>60); Est Glom Filt Rate - Afr Amer 90 mL/min (>60); Glucose 124 mg/dL (74-106); Potassium 3.9 mmol/L (3.5-5.1); Sodium Level 141 mmol/L (136-145)
[2023-10-19] VITALS (38 sets, daily range): BP systolic 98–148; BP diastolic 57–83; PULSE 70–109; RESP 14–18; TEMP 36.2–36.8; O2SAT 88–98; BMI 31.8
--- OUTSIDE RECORDS SUMMARY | 2023-10-19 05:52 | XMS RPT_ITS | CCD ---
Author Name Unknown Address [address] [place] [address] Organization [facility] Care Team Providers [facility] Name Role Phone Ivan Dexter DO Primary Care Provider Dr. Ivan Dexter Attending Unavaila ble Guerita, Dr. Ivan Valverde Primary Care Unavaila ble Guerita CHACKO, Ivan A Primary Care Provider SHASHANK LEON Referring Unavailable GUERITA, IVAN A Primary Care Unavailable BOLOGNA, ADITYA Chavez Referring Unavailable GUERITA, IVAN A Primary Care Unavailable BOLOGNA, ADITYA A Referring Unavailable GUERITA, IVAN A Primary Care Unavailable BIATS, CHEVY Mari Attending Unavailable BIATS, CHEVY Mari Referring Unavailable GUERITA, IVAN A Primary Care Unavailable GUERITA, IVAN A Primary Care Unavailable BIATS, CHEVY Mari Attending Unavailable BIATS, CHEVY Mari Referring Unavailable BOLOGNA, ADITYA A Attending Unavailable GUERITA, IVAN A Referring Unavailable GUERITA, IVAN A Primary Care Unavailable BOLOGNA, ADITYA A Attending Unavailable GUERITA, IVAN A Referring Unavailable GUERITA, IVAN A Primary Care Unavailable BOLOGNA, ADITYA A Attending Unavailable GUERITA, IVAN A Primary Care Unavailable BOLOGNA, ADITYA A Referring Unavailable BOLOGNA, ADITYA A Admitting Unavailable Allergies Allergy Classification Reported Allergen(s) Allergy Type Date of Onset Reaction(s) Facility (9 sources) Amoxicillin / Clavulanate; Translations: [AMOXICILLIN-POT CLAVULANATE] Drug Allergy 06-27-2005 [facility] Work Phone: (9 sources) Clarithromycin; Translations: [CLARITHROMYCIN] Drug Allergy 11-29-2013 Hives [facility] (9 sources) Vancomycin; Translations: [VANCOMYCIN] Drug Allergy 11-29-2013 Itching [facility] (4 sources) Latex; Translations: [LATEX] Drug Allergy 06-04-2020 Rash [facility] Medications Current Medications Medication Drug Class(es) Dates Sig (Normalized) Sig (Original) docusate sodium 100 mg oral capsule (1 source) Start: 02-21-2022 End: 03-23-2022 take 1 capsule by mouth twice daily docusate sodium (COLACE) 100 mg capsule Take 1 capsule by mouth twice daily. 60 capsule 0 02/21/2022 03/23/2022 Active Completed/Discontinued Medications Medication Drug Class(es) Dates Sig (Normalized) Sig (Original) amLODIPine 5 mg / benazepril hydrochloride 10 mg oral capsule (7 sources) Dihydropyridine Calcium Channel Fang, Angiotensin Converting Enzyme Inhibitor take 1 capsule by mouth once daily amLODIPine-benaze pril (LOTREL) 5-10 mg per capsule Take 1 capsule by mouth once daily. 0 Active Problems Active Problems Problem Classification Problem Date Documented Da te Episodic/Chronic Essential hypertension (1 source) Essential (primary) hypertension; Translations: [Primary hypertension] Onset: 02-06-2022 Chronic Genitourinary symptoms and ill-defined conditions (3 sources) Female stress incontinence; Translations: [Stress incontinence (female) (male)] Onset: 01-03-2022 Chronic Prolapse of female genital organs (7 sources) Uterine prolapse; Translations: [Uterovaginal prolapse, unspecified] Onset: 02-06-2022 Chronic Unclassified (1 source) Post Op Onset: 03-20-2022 Past or Other Problems Problem Classification Problem Date Documented Date Episodic/Chronic Abdominal hernia (8 sources) Hernia of anterior abdominal wall; Translations: [Ventral hernia without obstruction or gangrene] Onset: 07-10-2005 07-10-2005 Episodic Abdominal pain (8 sources) Generalized abdominal pain; Translations: [Generalized abdominal pain] Onset: 11-19-2007 11-19-2007 Episodic Other screening for suspected conditions (not mental disorders or infectious disease) (2 sources) Patient encounter status; Translations: [Encounter for screening for malignant neoplasm of cervix] Onset: 01-03-2022 Episodic Residual codes; unclassified (3 sources) Postoperative state; Translations: [Other specified postprocedural states] Onset: 03-20-2022 Episodic Results Test Name Value Interpretation Reference Range Facil ity Vital Signs Date Time Vital Sign Value Performing Clinician Sebastien solitario 03-20-2022 10:29-0400 Body height 162.6 cm Chevy Biats DO Work Phone: [facility] 03-20-2022 10:29-0400 Body weight 85.23 kg Chevy Biats DO Work Phone: [facility] 03-20-2022 10:29-0400 Diastolic blood pressure 87 mm[Hg] Chevy Biats DO Work Phone: [facility] 03-20-2022 10:29-0400 Systolic blood pressure 147 mm[Hg] Chevy Biats DO Work Phone: [facility] 02-11-2022 12:01-0400 Body height 162.6 cm Aditya Monahan MD Work Phone: [facility] 02-11-2022 12:01-0400 Body weight 81.65 kg Aditya Monahan MD Work Phone: [facility] 02-11-2022 12:01-0400 Diastolic blood pressure 92 mm[Hg] Aditya Monahan MD Work Phone: [facility] 02-11-2022 12:01-0400 Systolic blood pressure 160 mm[Hg] Aditya Monahan MD Work Phone: [facility] 01-03-2022 09:31-0400 Body height 162.6 cm Chevy Biats DO Work Phone: [facility] 01-03-2022 09:31-0400 Body weight 79.83 kg Chevy Biats DO Work Phone: [facility] 01-03-2022 09:31-0400 Diastolic blood pressure 83 mm[Hg] Chevy Biats DO Work Phone: [facility] 01-03-2022 09:31-0400 Systolic blood pressure 138 mm[Hg] Chevy Biats DO Work Phone: [facility] 12-11-2021 11:05-0400 Body height 162.6 cm Aditya Monahan MD Work Phone: [facility] 12-11-2021 11:05-0400 Body weight 77.56 kg Aditya Monahan MD Work Phone: [facility] Encounters Encounter Date Encounter Type Care Provider Facility Start: 05-21-[address] Ivan Dexter Facility:[id number] Start: 03-20-2022 End: 03-20-2022 ambulatory IVAN DEXTER Facility:[facility] Start: 03-20-2022 End: 03-20-2022 Patient encounter procedure Chevy Dong DO Work Phone: [facility] Procedures Date Procedure Procedure Detail Performing Clinician Start: 12-11-2021 Urnls dip stick/tabl et rgnt auto w/o microscopy Aditya Monahan MD Work Phone: Start: 01-26-2008 Colonoscopy Aditya berman MD Work Phone: Plan of Treatment Date Care Activity Detail Author Start: 02-21-2025 DIABETES SCREEN DIABETES SCREEN [facility] Start: 02-06-2025 DIABETES SCREEN DIABETES SCREEN [facility] Start: 04-10-2022 Influenza vaccination [facility] Start: 11-02-2021 COVID-19 VACCINE (4 - Booster for Moderna series) COVID-19 VACCINE (4 - Booster for Moderna series) [facility] Start: 08-30-2021 COVID-19 VACCINE (4 - Booster for Moderna series) COVID-19 VACCINE (4 - Booster for Moderna series) [facility] Start: 08-10-2021 ADVANCE DIRECTIVE DISCUSSION ADVANCE DIRECTIVE DISCUSSION [facility] Start: 08-10-2021 DEPRESSION ASSESSMENT DEPRESSION ASSESSMENT [facility] Start: 01-25-2018 Colonoscopy COLONOSCOPY [facility] Start: 01-25-2018 COLORECTAL CANCER SCREENING COLORECTAL CANCER SCREENING [facility] Start: 2014 BONE DENSITY BONE DENSITY [facility] Start: 2014 PNEUMOCOCCAL: 65+ (1 - PCV) PNEUMOCOCCAL: 65+ (1 - PCV) [facility] Start: 2014 PNEUMOVAX AGE 65 AND OVER WITH 5YR LOOKBACK (#1) PNEUMOVAX AGE 65 AND OVER WITH 5YR LOOKBACK (#1) [facility] Start: 1999 SHINGRIX VACCINE (1 of 2) SHINGRIX VACCINE (1 of 2) [facility] Start: 1994 COLOGUARD (FIT-DNA) COLOGUARD (FIT-DNA) [facility] Start: [address] COLONOGRAPHY [facility] Start: 1994 DIABETES SCREEN DIABETES SCREEN [facility] Start: 1994 FECAL OCCULT BLOOD FECAL OCCULT BLOOD [facility] Start: 1994 LIPID SCREEN LIPID SCREEN [facility] Start: 1994 SIGMOIDOSCOPY SIGMOIDOSCOPY [facility] Start: 1989 Mammography MAMMOGRAM [facility] Start: 1968 Urine microalbumin profile DTAP,TDAP,TD (1 - Tdap) [facility] Start: 1967 HEPATITIS C SCREENING HEPATITIS C SCREENING [facility] Start: 1961 Adult depression screening assessment DEPRESSION SCREENING [facility] Start: 1954 COVID-19 VACCINE (1) COVID-19 VACCINE (1) [facility] PAP FLUID CERVICAL SCREENING PAP FLUID CERVICAL SCREENING Lab Routine Women's annual routine gynecological examination Routine cervical smear Ordered: 01/03/2022 [facility] Work Phone: Payers Date Payer Category Payer Medicare MMO MEDICARE M[place] [facility] [id number] 2021-Present [phone] [address] [place] [address] [facility] [id number] 2021 Medicare MMO MEDICARE MMO MEDADVANTAGE O [id number] 2021-Present [phone] [address] [place] [address] [facility] [id number] 2021 Unknown [id number] 1950 Unknown [id number] Unknown [id number] Social History Date Type Detail Facility Start: 03-29-2018 Tobacco smoking stat [facility] Never smoked tobacco [facility] Start: 03-29-2018 End: 12-11-2021 Alcohol intake Current drinker of alcohol (finding) [facility] Start: 1950 Sex Assigned At Not on file C [facility] Start: 12-01-2021 End: 02-20-2022 Exposure to SARS-CoV-2 (event) Not sure [facility] Start: 03-29-2018 Tobacco use and exposure Smokeless tobacco non-user [facility] Work Phone: Medical Equipment Procedure Code Equipment Code Equipment Origin al Text Equipment Identifier Dates Sling Desara Jarad e Bx/5 [id number] Start: 02-20-2022 [employer] Ppro [id number] Start: 02-20-2022 Clinical Notes 11-08-2021 to 03-20-2022 Chevy Dong DO - 03/20/2022 10:49 AM Dany Monahan MD - 02/11/2022 11:30 AM Bita Fuentes RN - 01/03/2022 10:46 AM EDTPatient John Dong DO - 01/03/2022 9:55 AM EDT Note Date & Type Note Facility 03-20-2022 Note HNO ID: [id number] Author: Chevy Dong DO Service: ? Author Type: Physician Type: Progress Notes Filed: 03/20/2022 10:50 AM Note Text: Tomeka Goode is a 71 year old female who presents with a chief complaint of Post Op (4 week sx 02/20) SUBJECTIVE Patient presents 4 weeks follow-up robotic hysterectomy supracervical with bilateral salpingectomy and a sacrocolpopexy by Dr. Monahan. We went over her surgery and her pathology together. She is doing well denies any problems. Her incisions are clean and dry without erythema or drainage. She is happy with her surgery PAST MEDICAL HISTORY Diagnosis Date Abdominal pain, generalized right and left side in center Abdominal pain, left lower quadrant Diverticulosis of colon (without mention of hemorrhage) HTN (hypertension) Internal hemorrhoids without mention of complication Midline cystocele Uterine prolapse Ventral hernia with obstruction PAST SURGICAL HISTORY Procedure Laterality Date APPENDECTOMY 1978 COLONOSCOPY FLX DX W/COLLJ SPEC WHEN PFRMD 01/26/2008 CORRJ HALLUX VALGUS W/SESMDC W/2 OSTEOT Left 2014 X'S 2 2013 FOOT SURGERY HX Right 1979 IMPLANT MESH OPN HERNIA RPR/DEBRIDEMENT CLOSURE 07/01/2005 LIG/TRNSXJ FLP TUBE ABDL/VAG APPR UNI/BI 1976 Tubal ligation OOPHORECTOMY PARTIAL/TOTAL UNI/BI 2001 Oophorectomy PAST SURGICAL HISTORY OF 02/20/2022 ROBOTIC LAPAROSCOPIC COLPOPEXY RPR EPIGASTRIC HERNIA INCARCERATED 07/01/2005 TOTAL KNEE REPLACEMENT Left 2019 Social History Tobacco Use Smoking status: Never Smokeless tobacco: Never Vaping Use Vaping Use: Never used Substance Use Topics Alcohol use: Yes Comment: 1 BEER Q WEEK Drug use: No FAMILY HISTORY Problem Relation Age of Onset Hypertension Mother Stroke Mother Alcohol/Drug Father Heart Father Prostate Cancer Brother OB History T3 L3 SAB0 IAB0 Ectopic0 Multiple0 Live Births3 OBJECTIVE ALLERGIES Allergen Reactions Augmentin [Amoxicil* Biaxin [Clarithromy* Hives Vancomycin Itching Latex Rash Powder that is used in the latex glove Current Outpatient Medications Medication Sig docusate sodium (COLACE) 100 mg capsule Take 1 capsule by mouth twice daily. meloxicam (MOBIC) 15 mg tablet Take by mouth once daily. amLODIPine-benazepril (LOTREL) 5-10 mg per capsule Take 1 capsule by mouth once daily. loratadine(CLARITIN 10 MG TAB) Take one(1) tablet daily as needed for allergy symptoms. No current facility-administered medications for this visit. Review of Systems Constitutional: Denies weight loss, weight gain, fever Eyes: Negative vision changes ENT/Mouth: No ulcers, sinusitis, tinnitus Cardiovascular: Denies REESE, Edema, palpitations, chest pain Respiratory: Denies wheezing, hemoptysis, SOB, cough Gastrointestinal: Denies diarrhea, bloody stool, constipation Genitourinary: See HPI Musculoskeletal: Denies muscle weakness Skin/breast: Denies discharge, masses, rash, ulcers Neurological: Denies syncope, seizures, numbness Physical Exam BP 147/87 Ht 5' 4 (1.63m) Wt 187 lb 14.4 oz (85.2kg) BMI 32.24 kg/(m2). General: No Acute Distress, Well nourished, Well developed, No obvious deformities, and Alert/Oriented x 3 Mood/Affect: Normal HEENT: Normocephalic, Atraumatic, and Grossly Within Normal Limits GI: Abdomen soft, non-tender, no masses, Liver/spleen non-palpable, No hernias, and Normoactive bowel sounds Skin: Intact, no lesions ASSESSMENT/PLAN: 1. Post-operative state - ICD9: V45.89, ICD10: Z98.890 Follow-up in 3 months for annual Chevy Dong DO [facility] 03-20-2022 History of Presen t illness Narrative Tomeka Goode is a 71 year old female who presents with a chief complaint of Post Op (4 week sx 02/20) SUBJECTIVE Patient presents 4 weeks follow-up robotic hysterectomy supracervical with bilateral salpingectomy and a sacrocolpopexy by Dr. Monahan. We went over her surgery and her pathology together. She is doing well denies any problems. Her incisions are clean and dry without erythema or drainage. She is happy with her surgery PAST MEDICAL HISTORY Diagnosis Date Abdominal pain, generalized right and left side in center Abdominal pain, left lower quadrant Diverticulosis of colon (without mention of hemorrhage) HTN (hypertension) Internal hemorrhoids without mention of complication Midline cystocele Uterine prolapse Ventral hernia with obstruction PAST SURGICAL HISTORY Procedure Laterality Date APPENDECTOMY 1978 COLONOSCOPY FLX DX W/COLLJ SPEC WHEN PFRMD 01/26/2008 CORRJ HALLUX VALGUS W/SESMDC W/2 OSTEOT Left 2014 X'S 2 2014 FOOT SURGERY HX Right 1979 IMPLANT MESH OPN HERNIA RPR/DEBRIDEMENT CLOSURE 07/01/2005 LIG/TRNSXJ FLP TUBE ABDL/VAG APPR UNI/BI 1976 Tubal ligation OOPHORECTOMY PARTIAL/TOTAL UNI/BI 2001 Oophorectomy PAST SURGICAL HISTORY OF 02/20/2022 ROBOTIC LAPAROSCOPIC COLPOPEXY RPR EPIGASTRIC HERNIA INCARCERATED 07/01/2005 TOTAL KNEE REPLACEMENT Left 2019 Social History Tobacco Use Smoking status: Never Smokeless tobacco: Never Vaping Use Vaping Use: Never used Substance Use Topics Alcohol use: Yes Comment: 1 BEER Q WEEK Drug use: No FAMILY HISTORY Problem Relation Age of Onset Hypertension Mother Stroke Mother Alcohol/Drug Father Heart Father Prostate Cancer Brother OB History T3 L3 SAB0 IAB0 Ectopic0 Multiple0 Live Births3 OBJECTIVE ALLERGIES Allergen Reactions Augmentin [Amoxicil* Biaxin [Clarithromy* Hives Vancomycin Itching Latex Rash Powder that is used in the latex glove Current Outpatient Medications Medication Sig docusate sodium (COLACE) 100 mg capsule Take 1 capsule by mouth twice daily. meloxicam (MOBIC) 15 mg tablet Take by mouth once daily. amLODIPine-benazepril (LOTREL) 5-10 mg per capsule Take 1 capsule by mouth once daily. loratadine(CLARITIN 10 MG TAB) Take one(1) tablet daily as needed for allergy symptoms. No current facility-administered medications for this visit. Review of Systems Constitutional: Denies weight loss, weight gain, fever Eyes: Negative vision changes ENT/Mouth: No ulcers, sinusitis, tinnitus Cardiovascular: Denies REESE, Edema, palpitations, chest pain Respiratory: Denies wheezing, hemoptysis, SOB, cough Gastrointestinal: Denies diarrhea, bloody stool, constipation Genitourinary: See HPI Musculoskeletal: Denies muscle weakness Skin/breast: Denies discharge, masses, rash, ulcers Neurological: Denies syncope, seizures, numbness Physical Exam BP 147/87 Ht 5' 4 (1.63m) Wt 187 lb 14.4 oz (85.2kg) BMI 32.24 kg/(m^2). General: No Acute Distress, Well nourished, Well developed, No obvious deformities, and Alert/Oriented x 3 Mood/Affect: Normal HEENT: Normocephalic, Atraumatic, and Grossly Within Normal Limits GI: Abdomen soft, non-tender, no masses, Liver/spleen non-palpable, No hernias, and Normoactive bowel sounds Skin: Intact, no lesions ASSESSMENT/PLAN: 1. Post-operative state - ICD9: V45.89, ICD10: Z98.890 Follow-up in 3 months for annual hCevy Dong DO documented in this encounter [facility] 03-11-2022 Note HNO ID: [id number] Author: Aditya Monahan MD Service: ? Author Type: Physician Type: Progress Notes Filed: 03/11/2022 3:03 PM Note Text: ESTABLISHED PATIENT VISIT HPI Tomeka Goode is a 71 year old female who presents post colpopexy anterior para mid urethral sling. She is doing well, voiding without difficulty and no stress urinary incontinence. Her incisions. Be healing and are intact. Her vault is well supported. We discussed postoperative care and we will see her in follow-up in 3 to 4 months. URINE POC GLUCOSE UA (POCT) Negative 03/11/2022 BILIRUBIN UA (POCT) Negative 03/11/2022 KETONE UA (POCT) Negative 03/11/2022 SPECIFIC GRAVITY UA (POCT) 1.010 03/11/2022 HEMOGLOBIN/BLOOD UA (POCT) Trace-lysed 03/11/2022 PH UA (POCT) 6.5 03/11/2022 PROTEIN UA (POCT) Negative 03/11/2022 UROBILINOGEN UA (POCT) 0.2 03/11/2022 NITRITE UA (POCT) Negative 03/11/2022 LEUKOCYTES UA (POCT) Small 03/11/2022 COLOR UA (POCT) Yellow 03/11/2022 CLARITY UA (POCT) Clear 03/11/2022 REVIEW OF SYSTEMS GENERAL:No weight loss, malaise or fevers., SEE HPI GENITOURINARY: See HPI CONSTITUTIONALl: No recent fever or weight loss ALLERGIES Allergen Reactions - Augmentin [Amoxicil* - Biaxin [Clarithromy* Hives - Vancomycin Itching - Latex Rash Powder that is used in the latex glove HISTORIES PAST MEDICAL HISTORY Diagnosis Date - Abdominal pain, generalized right and left side in center - Abdominal pain, left lower quadrant - Diverticulosis of colon (without mention of hemorrhage) - HTN (hypertension) - Internal hemorrhoids without mention of complication - Midline cystocele - Uterine prolapse - Ventral hernia with obstruction FAMILY HISTORY Problem Relation Age of Onset - Hypertension Mother - Stroke Mother - Alcohol/Drug Father - Heart Father - Prostate Cancer Brother Social History Tobacco Use - Smoking status: Never Smoker - Smokeless tobacco: Never Used Vaping Use - Vaping Use: Never used Substance Use Topics - Alcohol use: Yes Comment: 1 BEER Q WEEK - Drug use: No MEDICATIONS: docusate sodium (COLACE) 100 mg capsule Take 1 capsule by mouth twice daily. meloxicam (MOBIC) 15 mg tablet Take by mouth once daily. amLODIPine-benazepril (LOTREL) 5-10 mg per capsule Take 1 capsule by mouth once daily. loratadine(CLARITIN 10 MG TAB) Take one(1) tablet daily as needed for allergy symptoms. Physical Exam Blood Pressure 138/92 Height 162.6 cm (5' 4 ) Weight 81.6 kg (180 lb) Body Mass Index 30.90 kg/m? ASSESSMENT/PLAN: (N81.4) Uterine prolapse (primary encounter diagnosis) [facility] 02-21-2022 Note HNO ID: [id number] Author: Daniele Bailey DO Service: Urology Author Type: Resident Type: Progress Notes Filed: 02/21/2022 7:14 AM Note Text: Attestation signed by Eric Thibodeaux MD at 02/21/2022 5:51 PM Discussed with the resident and agree with resident's findings and plan as documented in the resident's note. Eric Thibodeaux MD UROLOGY PROGRESS NOTE PATIENT NAME: Tomeka Goode DATE OF : 1950 ADMISSION DATE: 02/20/2022 9:19 AM Subjective S/P robotic-assisted laparoscopic sacrocolpopexy, anterior repair, midurethral sling, cystoscopy on 02/20. No acute events overnight. Slept well Denies abdominal and flank pain Thorpe draining clear, yellow urine Objective VS: BP 122/68 Pulse 68 Temp 37 ?C (98.6 ?F) (Oral) Resp 16 Ht 162.6 cm (5' 4 ) Wt 81.6 kg (180 lb) SpO2 94% BMI 30.90 kg/m? I AND O - 24hr: Intake/Output Summary (Last 24 hours) at 02/21/2022 0523 Last data filed at 02/21/2022 0400 Gross per 24 hour Intake 2860 ml Output 1610 ml Net 1250 ml Physical Exam: General: Neck: Resp: Abdomen: No acute distress Supple Normal effort Soft, non-tender, nondistended. Incision sites clean, non-erythematous, with no drainage. : 16F Thorpe catheter draining yellow urine. No CVA tenderness bilaterally Labs and Imaging Studies LABS: BMP: Glucose (mg/dL) Date Value 02/06/2022 89 Potassium (mmol/L) Date Value 02/06/2022 4.0 Sodium (mmol/L) Date Value 02/06/2022 140 Chloride (mmol/L) Date Value 02/06/2022 103 CO2 (mmol/L) Date Value 02/06/2022 27 Creatinine (mg/dL) Date Value 02/06/2022 0.72 BUN (mg/dL) Date Value 02/06/2022 12 Anion Gap (mmol/L) Date Value 02/06/2022 10 Calcium, Total (mg/dL) Date Value 02/06/2022 9.9 CBC: Hemoglobin (g/dL) Date Value 02/06/2022 14.6 Hematocrit (%) Date Value 02/06/2022 45.2 WBC (k/uL) Date Value 02/06/2022 5.66 Platelet Count (k/uL) Date Value 02/06/2022 177 Urinalysis: No results found for: PH, SPGR, UGLUC, UBILI, UKET, UHB, UPROT, UROBIL, NITRITES, UWBC, SSA Urine Culture: No results found for: URCUL RADIOLOGY: none Assessment and Plan ASSESSMENT: 71 year old female with hx of uterine prolapse w/ stress incontinence; POD 1 RASCP, anterior repair, urethral sling. PLAN: Maintain 16F catheter insertion VT this AM -D/C appropriate from urologic standpoint if pt passes her VT Tolerating regular diet Continue pain control with tylenol q6hrs Stan Bean Agree with above. VT this AM Page on-call resident with PVR IS usage SCDs for DVT PPX D/c home later this AM Daniele Bailey, Urology, PGY-5 #[id number] Please page on-call resident with any questions [facility] 02-20-2022 Note HNO ID: [id number] Author: Erica Curran APRN.GUNSMITH APPRENTICE Service: Anesthesiology Author Type: Nurse Digital Community Manager Type: Anesthesia Procedure Notes Filed: 02/20/2022 11:54 AM Note Text: ANESTHESIOLOGY PROCEDURE NOTE PIV General Information Procedure Start Time/Medication Administration: 02/20/2022 10:30 AM Patient Location: [facility] GUNSMITH APPRENTICE: Erica Currna APRN.GUNSMITH APPRENTICE Performed by: GUNSMITH APPRENTICE Preparation Sterility Preparation: hand hygiene performed prior to procedure, surgical cap used, mask used, sterile drape used during line insertion, skin prep agent completely dried prior to procedure Site Prep: Chloraprep Procedure Details Indication: need for IV access Needle Size/Type: 20 gauge angiocath Orientation: Right Location: Hand SIGNATURE: Erica Curran APRN.GUNSMITH APPRENTICE PATIENT NAME: Tomeka Goode DATE: February 20, 2022 TIME: 11:54 AM CSN: [id number] [facility] 02-20-2022 Note HNO ID: [id number] Author: Erica Curran APRN.GUNSMITH APPRENTICE Service: Anesthesiology Author Type: Nurse Digital Community Manager Type: Anesthesia Procedure Notes Filed: 02/20/2022 11:54 AM Note Text: ANESTHESIOLOGY PROCEDURE NOTE PIV General Information Procedure Start Time/Medication Administration: 02/20/2022 11:10 AM Patient Location: [facility] GUNSMITH APPRENTICE: Erica Curran APRN.GUNSMITH APPRENTICE Performed by: HAILEY Preparation Sterility Preparation: hand hygiene performed prior to procedure, surgical cap used, mask used, sterile drape used during line insertion, skin prep agent completely dried prior to procedure Site Prep: Chloraprep Procedure Details Needle Size/Type: 18 gauge angiocath Orientation: Left Location: Antecubital SIGNATURE: Erica Curran APRN.GUNSMITH APPRENTICE PATIENT NAME: Tomeka Goode DATE: February 20, 2022 TIME: 11:53 AM CSN: [id number] [facility] 02-20-2022 Note HNO ID: [id number] Author: Erica Curran APRN.GUNSMITH APPRENTICE Service: Anesthesiology Author Type: Nurse Digital Community Manager Type: Anesthesia Procedure Notes Filed: 02/20/2022 11:53 AM Note Text: ANESTHESIOLOGY PROCEDURE NOTE Airway General Information Procedure Start Time/Medication Administration: 02/20/2022 11:25 AM Patient location during procedure: OR Timeout Performed Pre-procedure: timeout performed Consent Obtained: Yes Patient identity confirmed: arm band and patient Staffing GUNSMITH APPRENTICE: Erica Curran APRN.GUNSMITH APPRENTICE Indications and Patient Condition Preoxygenated: yes Patient position: sniffing Indications for airway management: anesthesia and airway protection anesthesia circuit Method: asleep Final Airway Details Final airway type: endotracheal airway Final Endotracheal Airway: ETT Cuffed: yes Successful intubation technique: direct laryngoscopy Devices used: Avenue Right Endotracheal tube insertion site: oral Blade: Marisela Blade size: #4 ETT size (mm): 7.0 Measured from: lips Measurement (cm): 22 Placement verified by: chest auscultation and capnometry Cormack-Lehane Classification: grade IIa - partial view of glottis Number of attempts at approach: 1 SIGNATURE: Erica Curran APRN.GUNSMITH APPRENTICE PATIENT NAME: Tomeka Goode DATE: February 20, 2022 TIME: 11:52 AM CSN: [id number] [facility] 02-11-2022 Note HNO ID: [id number] Author: Aditya Monahan MD Service: ? Author Type: Physician Type: Progress Notes Filed: 02/11/2022 2:00 PM Note Text: ESTABLISHED PATIENT VISIT HPI Tomeka Goode is a 71 year old female who presents to discuss surgery and sign consent Patient here to review surgery. She underwent urodynamics demonstrating stress urinary incontinence with her prolapse reduced. She also states that when she was working she was experiencing stress incontinence. Today we reviewed the risk and benefits of robotic assisted laparoscopic sacrocolpopexy. Possible anterior repair and mid urethral sling. We discussed the use of mesh material. We discussed the FDA data regarding the use of mesh. We reviewed risk benefits alternatives and expectations. Her questions were answered regarding surgery. We have reviewed the most common postoperative complications that we encounter with procedures and they include the following but are not limited to: 1. Infection, wound infection or urinary tract infection 2. Bleeding and the ossible risk of transfusion, the risk of transfusion is very low however he will have some spotting or vaginal bleeding for some time. This may last up to 2 weeks. 3. It is common after surgery to have difficulties urinating. It is possible that she may go home with a catheter and require an office visit for removing the catheter. Our goal is that she does not experience any urinary incontinence after surgery however it is possible that she may have persistent urinary leakage. It is possible that she may require a second surgical procedure to correct urinary incontinence, urinary retention or incomplete bladder emptying. It is not uncommon for patients experience overactive bladder symptoms, urinary frequency urgency, often this will resolve with time. For patients that previously have experienced urinary frequency and urgency these symptoms may persist after surgery. 4. We always worry about injury to other organs including bowel, bladder and blood vessels. We frequently look in the bladder, cystoscopy, to ensure that there is no bladder injury. 5. There is always a possibility for repeat surgery to correct any problems that have developed. 6. We are always worried about postoperative blood clots and encourage walking after surgery. 7. After surgery walking, climbing stairs are driving are allowed when you are comfortable, no heavy lifting greater than 20 pounds for 4-6 weeks. You may shower immediately after surgery. No tub baths for 2 weeks after surgery. Please refrain from anything in the vagina for 4-6 weeks or until your sutures have dissolved. 8. Once you have healed intercourse should not be uncomfortable if you're noticing any pain or discomfort please let us know. GLUCOSE UA (POCT) Negative 12/11/2021 BILIRUBIN UA (POCT) Negative 12/11/2021 KETONE UA (POCT) Negative 12/11/2021 SPECIFIC GRAVITY UA (POCT) <=1.005 12/11/2021 HEMOGLOBIN/BLOOD UA (POCT) Negative 12/11/2021 PH UA (POCT) 6.5 12/11/2021 PROTEIN UA (POCT) Negative 12/11/2021 UROBILINOGEN UA (POCT) 0.2 12/11/2021 NITRITE UA (POCT) Negative 12/11/2021 LEUKOCYTES UA (POCT) Negative 12/11/2021 COLOR UA (POCT) Light yellow 12/11/2021 CLARITY UA (POCT) Clear 12/11/2021 REVIEW OF SYSTEMS GENERAL:No weight loss, malaise or fevers., SEE HPI GENITOURINARY: See HPI CONSTITUTIONALl: No recent fever or weight loss ALLERGIES Allergen Reactions - Augmentin [Amoxicil* - Biaxin [Clarithromy* Hives - Vancomycin Itching - Latex Rash Powder that is used in the latex glove HISTORIES PAST MEDICAL HISTORY Diagnosis Date - Abdominal pain, generalized right and left side in center - Abdominal pain, left lower quadrant - Diverticulosis of colon (without mention of hemorrhage) - HTN (hypertension) - Internal hemorrhoids without mention of complication - Midline cystocele - Uterine prolapse - Ventral hernia with obstruction FAMILY HISTORY Problem Relation Age of Onset - Hypertension Mother - Stroke Mother - Alcohol/Drug Father - Heart Father - Prostate Cancer Brother Social History Tobacco Use - Smoking status: Never Smoker - Smokeless tobacco: Never Used Vaping Use - Vaping Use: Never used Substance Use Topics - Alcohol use: Yes Comment: 1 BEER Q WEEK - Drug use: No MEDICATIONS: amLODIPine-benazepril (LOTREL) 5-10 mg per capsule Take 1 capsule by mouth once daily. loratadine(CLARITIN 10 MG TAB) Take one(1) tablet daily as needed for allergy symptoms. meloxicam (MOBIC) 15 mg tablet Take by mouth once daily. Physical Exam BP 160/92 Ht 162.6 cm (5' 4 ) Wt 81.6 kg (180 lb) BMI 30.90 kg/m? ASSESSMENT/PLAN: (N39.3) Stress incontinence (primary encounter diagnosis) (N81.4) Uterine prolapse [facility] 02-11-2022 History of Presen t illness Narrative ESTABLISHED PATIENT VISIT HPI Tomeka Goode is a 71 year old female who presents to discuss surgery and sign consent Patient here to review surgery. She underwent urodynamics demonstrating stress urinary incontinence with her prolapse reduced. She also states that when she was working she was experiencing stress incontinence. Today we reviewed the risk and benefits of robotic assisted laparoscopic sacrocolpopexy. Possible anterior repair and mid urethral sling. We discussed the use of mesh material. We discussed the FDA data regarding the use of mesh. We reviewed risk benefits alternatives and expectations. Her questions were answered regarding surgery. We have reviewed the most common postoperative complications that we encounter with procedures and they include the following but are not limited to: 1. Infection, wound infection or urinary tract infection 2. Bleeding and the ossible risk of transfusion, the risk of transfusion is very low however he will have some spotting or vaginal bleeding for some time. This may last up to 2 weeks. 3. It is common after surgery to have difficulties urinating. It is possible that she may go home with a catheter and require an office visit for removing the catheter. Our goal is that she does not experience any urinary incontinence after surgery however it is possible that she may have persistent urinary leakage. It is possible that she may require a second surgical procedure to correct urinary incontinence, urinary retention or incomplete bladder emptying. It is not uncommon for patients experience overactive bladder symptoms, urinary frequency urgency, often this will resolve with time. For patients that previously have experienced urinary frequency and urgency these symptoms may persist after surgery. 4. We always worry about injury to other organs including bowel, bladder and blood vessels. We frequently look in the bladder, cystoscopy, to ensure that there is no bladder injury. 5. There is always a possibility for repeat surgery to correct any problems that have developed. 6. We are always worried about postoperative blood clots and encourage walking after surgery. 7. After surgery walking, climbing stairs are driving are allowed when you are comfortable, no heavy lifting greater than 20 pounds for 4-6 weeks. You may shower immediately after surgery. No tub baths for 2 weeks after surgery. Please refrain from anything in the vagina for 4-6 weeks or until your sutures have dissolved. 8. Once you have healed intercourse should not be uncomfortable if you're noticing any pain or discomfort please let us know. GLUCOSE UA (POCT) Negative 12/11/2021 BILIRUBIN UA (POCT) Negative 12/11/2021 KETONE UA (POCT) Negative 12/11/2021 SPECIFIC GRAVITY UA (POCT) <=1.005 12/11/2021 HEMOGLOBIN/BLOOD UA (POCT) Negative 12/11/2021 PH UA (POCT) 6.5 12/11/2021 PROTEIN UA (POCT) Negative 12/11/2021 UROBILINOGEN UA (POCT) 0.2 12/11/2021 NITRITE UA (POCT) Negative 12/11/2021 LEUKOCYTES UA (POCT) Negative 12/11/2021 COLOR UA (POCT) Light yellow 12/11/2021 CLARITY UA (POCT) Clear 12/11/2021 REVIEW OF SYSTEMS GENERAL:No weight loss, malaise or fevers., SEE HPI GENITOURINARY: See HPI CONSTITUTIONALl: No recent fever or weight loss ALLERGIES Allergen Reactions Augmentin [Amoxicil* Biaxin [Clarithromy* Hives Vancomycin Itching Latex Rash Powder that is used in the latex glove HISTORIES PAST MEDICAL HISTORY Diagnosis Date Abdominal pain, generalized right and left side in center Abdominal pain, left lower quadrant Diverticulosis of colon (without mention of hemorrhage) HTN (hypertension) Internal hemorrhoids without mention of complication Midline cystocele Uterine prolapse Ventral hernia with obstruction FAMILY HISTORY Problem Relation Age of Onset Hypertension Mother Stroke Mother Alcohol/Drug Father Heart Father Prostate Cancer Brother Social History Tobacco Use Smoking status: Never Smoker Smokeless tobacco: Never Used Vaping Use Vaping Use: Never used Substance Use Topics Alcohol use: Yes Comment: 1 BEER Q WEEK Drug use: No MEDICATIONS: amLODIPine-benazepril (LOTREL) 5-10 mg per capsule Take 1 capsule by mouth once daily. loratadine(CLARITIN 10 MG TAB) Take one(1) tablet daily as needed for allergy symptoms. meloxicam (MOBIC) 15 mg tablet Take by mouth once daily. Physical Exam BP 160/92 Ht 162.6 cm (5' 4 ) Wt 81.6 kg (180 lb) BMI 30.90 kg/m ASSESSMENT/PLAN: (N39.3) Stress incontinence (primary encounter diagnosis) (N81.4) Uterine prolapse documented in this encounter [facility] 01-03-2022 Note HNO ID: [id number] Author: Sue Fuentes RN Service: ? Author Type: ? Type: Progress Notes Filed: 01/09/2022 4:56 PM Note Text: Tomeka Goode [id number] 1950 January 03, 2022 Diagnoses: Stress urinary incontinence Cystocele, Prolapse UA done: No Procedure Performed: Multichannel urodynamic testing including multichannel cystometrogram, urethral pressure profiles, uroflowmetry, pressure voiding study, EMG and reduced urethral pressure profiles. Was a uroflow done at some point during the study: Yes Was a cystometrogram performed: Yes Was a UPP done: Yes Was an EMG done: Yes Was an intraabdominal pressure recorded: Yes Where were pressure catheters placed: Bladder and Vaginal Procedure: The patient verified medications and allergies. The procedure was explained to the patient. Immediately prior to the test the patient was given Lidocaine 2% jelly 6 ml to urethra and Macrobid 100 mg #1 by mouth per order. UNIVERSAL PROTOCOL / SAFETY CHECKLIST A moment to CARE: Completed Procedure to be performed: Urodynamics Sign in Communication: Completed Time Out: Team Confirms the Correct Patient, Correct Procedure, Correct Site and Site Marking, Correct Position (if applicable), Prep and Dry Time (if applicable). Time: 1045 Affirmation of Time Out: yes Sign Out Discussion: Completed Urodynamic Findings: Uroflow : Patient arrived with a thorpe catheter- No. Patient voided 445.2 ml; Curve: Hesitant Post void residual 10 ml QMAX 28.9 ; QAVG 13.8 . Cystometrogram: The patient had a cystometrogram EMG: Yes First Sensation 288 ml First desire 461 ml Strong Desire 530 ml Capacity 576 ml The patient did not leak with cough. no destrusor contractions Instability associated with urge: No Instability associated with leakage: No Urethral pressure profiles: No leak with small, medium or large cough sitting. Was patient assessed for VLPP: Yes Mean Urethral closure pressure 132 cmH2O Functional urethral length 40 mm Leak point pressure testing n/a and n/a cmH2O Baseline n/a Subtracted leak point pressure n/a and n/a cmH2O Reduced Urethral Pressure Profile: Leak with Valsalva x2 standing. No leak with small, medium, large coughs sitting or small, medium, large coughs standing prior. The prolapse was reduced with a speculum. Mean urethral closure pressure of 119 cmH2O Functional urethral length of 33 cmH2O Leak point pressure testing 90 and 90 cmH2O Baseline 56 Subtracted leak point pressure 34 and 34 cmH20. Pressure-Flow Voiding Study: EMG: Yes Void 696 ml; Curve: Hesitant Post void residual: patient void greater than filling Maximum detrusor pressure 30 Cm H20 Maximum flow rate: 21.9 ml/sec Average flow rate: 11.6 ml/sec UDS notes: Summary Uroflow: PVR 10 ml after 445 ml void CMG: EMG normal Normal compliance UPP Leakage with prolapse reduced Pressure Flow PVR minimal after a 696 void EMG normal Result Normal compliance Leakage with prolapse reduced Plan: Will follow up with provider to discuss results and plan of care. Patient tolerated the procedure well. Home going instructions given. Patient able to repeat back understanding of instructions. Sue Monahan MD January 09, 2022 cc: Aditya Monahan MD [facility] 01-03-2022 Note HNO ID: [id number] Author: Chevy Dong, DO Service: ? 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 Monahan.We went over the risk, the benefits, the major minor complications, signed consent form. Went over the surgery itself, hospital course, the current PAST MEDICAL HISTORY Diagnosis Date - Abdominal pain, generalized right and left side in center - Abdominal pain, left lower quadrant - Diverticulosis of colon (without mention of hemorrhage) - Internal hemorrhoids without mention of complication - Ventral hernia with obstruction PAST SURGICAL HISTORY Procedure Laterality Date - APPENDECTOMY - COLONOSCOPY FLX DX W/COLLJ SPEC WHEN PFRMD 01/26/08 - CORRJ HALLUX VALGUS W/SESMDC W/2 OSTEOT X'S 2 - IMPLANT MESH OPN HERNIA RPR/DEBRIDEMENT CLOSURE 07/01/2005 - LIG/TRNSXJ FLP TUBE ABDL/VAG APPR UNI/BI Tubal ligation - OOPHORECTOMY PARTIAL/TOTAL UNI/BI Oophorectomy - RPR EPIGASTRIC HERNIA INCARCERATED 07/01/2005 Social History Tobacco Use - Smoking status: Never Smoker - Smokeless tobacco: Never Used Substance Use Topics - Alcohol use: Yes Comment: 1 BEER Q WEEK - Drug use: No FAMILY HISTORY Problem Relation Age of Onset - Hypertension Mother - Stroke Mother - Alcohol/Drug Father - Heart Father - Prostate Cancer Brother OB History T3 L3 SAB0 IAB0 Ectopic0 Multiple0 Live Births3 OBJECTIVE ALLERGIES Allergen Reactions - Augmentin [Amoxicil* - Biaxin [Clarithromy* Hives - Vancomycin Itching Current Outpatient Medications Medication Sig - amLODIPine-benazepril (LOTREL) 5-10 mg per capsule Take 1 capsule by mouth once daily. - loratadine(CLARITIN 10 MG TAB) Take one(1) tablet daily as needed for allergy symptoms. - estriol 0.1% cream (CPD) Use 1 g vaginally two times a week. (Patient not taking: Reported on 01/03/2022 ) - nystatin (MYCOSTATIN) cream Use four times daily as needed. (Patient not taking: Reported on 12/11/2021 ) - TOPROL XL 50 MG 24 HR TAB Take one(1) tablet daily. (Patient not taking: Take one(1) tablet daily.) Current Facility-Administered Medications Medication Dose Route Frequency - lidocaine urojet 2 % 6 mL topical gel (XYLOCAINE, GLYDO) 6 mL URETHRAL ONCE (AMB - Up to 30 Days) - nitrofurantoin monohydrate and macrocrystal 100 mg cap(s) (MACROBID) 100 mg ORAL ONCE (AMB - Up to 30 Days) Review of Systems Constitutional: Denies weight loss, weight gain, fever Eyes: Negative vision changes ENT/Mouth: No ulcers, sinusitis, tinnitus Cardiovascular: Denies REESE, Edema, palpitations, chest pain Respiratory: Denies wheezing, hemoptysis, SOB, cough Gastrointestinal: Denies diarrhea, bloody stool, constipation Genitourinary: See HPI Musculoskeletal: Denies muscle weakness Skin/breast: Denies discharge, masses, rash, ulcers Neurological: Denies syncope, seizures, numbness Physical Exam BP 138/83 Ht 5' 4 (1.63m) Wt 176 lb (79.8kg) BMI 30.20 kg/(m2). 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 Women's annual routine gynecological examination - ICD9: V72.31, ICD10: Z01.419 (primary diagnosis) - Completed pelvic and breast exam - Encouraged monthly BSE - Follow up for annual exam in one year. - PAP FLUID CERVICAL SCREENING - [facility] SCREENING 2. Routine cervical smear - ICD9: V76.2, ICD10: Z12.4 - Completed pelvic and breast exam - Encouraged monthly BSE - Follow up for annual exam in one year. - PAP FLUID CERVICAL SCREENING 3. Uterine prolapse - ICD9: 618.1, ICD10: N81.4 Consent signed and ready for surgery Chevy Dong DO [facility] 01-03-2022 History of Presen t illness Narrative Tomeka Tiffany Russel [id number] 1950 January 03, 2022 Diagnoses: Stress urinary incontinence Cystocele, Prolapse UA done: No Procedure Performed: Multichannel urodynamic testing including multichannel cystometrogram, urethral pressure profiles, uroflowmetry, pressure voiding study, EMG and reduced urethral pressure profiles. Was a uroflow done at some point during the study: Yes Was a cystometrogram performed: Yes Was a UPP done: Yes Was an EMG done: Yes Was an intraabdominal pressure recorded: Yes Where were pressure catheters placed: Bladder and Vaginal Procedure: The patient verified medications and allergies. The procedure was explained to the patient. Immediately prior to the test the patient was given Lidocaine 2% jelly 6 ml to urethra and Macrobid 100 mg #1 by mouth per order. UNIVERSAL PROTOCOL / SAFETY CHECKLIST A moment to CARE: Completed Procedure to be performed: Urodynamics Sign in Communication: Completed Time Out: Team Confirms the Correct Patient, Correct Procedure, Correct Site and Site Marking, Correct Position (if applicable), Prep and Dry Time (if applicable). Time: 1045 Affirmation of Time Out: yes Sign Out Discussion: Completed Urodynamic Findings: Uroflow : Patient arrived with a thorpe catheter- No. Patient voided 445.2 ml; Curve: Hesitant Post void residual 10 ml QMAX 28.9 ; QAVG 13.8 . Cystometrogram: The patient had a cystometrogram EMG: Yes First Sensation 288 ml First desire 461 ml Strong Desire 530 ml Capacity 576 ml The patient did not leak with cough. no destrusor contractions Instability associated with urge: No Instability associated with leakage: No Urethral pressure profiles: No leak with small, medium or large cough sitting. Was patient assessed for VLPP: Yes Mean Urethral closure pressure 132 cmH2O Functional urethral length 40 mm Leak point pressure testing n/a and n/a cmH2O Baseline n/a Subtracted leak point pressure n/a and n/a cmH2O Reduced Urethral Pressure Profile: Leak with Valsalva x2 standing. No leak with small, medium, large coughs sitting or small, medium, large coughs standing prior. The prolapse was reduced with a speculum. Mean urethral closure pressure of 119 cmH2O Functional urethral length of 33 cmH2O Leak point pressure testing 90 and 90 cmH2O Baseline 56 Subtracted leak point pressure 34 and 34 cmH20. Pressure-Flow Voiding Study: EMG: Yes Void 696 ml; Curve: Hesitant Post void residual: patient void greater than filling Maximum detrusor pressure 30 Cm H20 Maximum flow rate: 21.9 ml/sec Average flow rate: 11.6 ml/sec UDS notes: N/A Plan: Will follow up with provider to discuss results and plan of care. Patient tolerated the procedure well. Home going instructions given. Patient able to repeat back understanding of instructions. Sue Fuentes RN cc: Aditya Monahan MD documented in this encounter [facility] 01-03-2022 Instructions Sue Fuentes RN - 01/03/2022 10:28 AM EDT POST PROCEDURE INSTRUCTIONS Tomeka Goode January 03, 2022 Increase your fluid intake. FOLLOW UP APPOINTMENT: 02/11/2022 at 1130 with Aditya Monahan MD in the [address] [place] [address] office. WHEN TO CALL THE DOCTOR: If you develop fever (over 101 degrees) or chills. If you cannot urinate or empty your bladder. If you develop symptoms of a urinary tract infection such as burning or pain with urination, increased frequency of urination or foul smelling urine If you have any other questions or problems. 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 Monahan.We went over the risk, the benefits, the major minor complications, signed consent form. Went over the surgery itself, hospital course, the current PAST MEDICAL HISTORY Diagnosis Date Abdominal pain, generalized right and left side in center Abdominal pain, left lower quadrant Diverticulosis of colon (without mention of hemorrhage) Internal hemorrhoids without mention of complication Ventral hernia with obstruction PAST SURGICAL HISTORY Procedure Laterality Date APPENDECTOMY COLONOSCOPY FLX DX W/COLLJ SPEC WHEN PFRMD 01/26/08 CORRJ HALLUX VALGUS W/SESMDC W/2 OSTEOT X'S 2 IMPLANT MESH OPN HERNIA RPR/DEBRIDEMENT CLOSURE 07/01/2005 LIG/TRNSXJ FLP TUBE ABDL/VAG APPR UNI/BI Tubal ligation OOPHORECTOMY PARTIAL/TOTAL UNI/BI Oophorectomy RPR EPIGASTRIC HERNIA INCARCERATED 07/01/2005 Social History Tobacco Use Smoking status: Never Smoker Smokeless tobacco: Never Used Substance Use Topics Alcohol use: Yes Comment: 1 BEER Q WEEK Drug use: No FAMILY HISTORY Problem Relation Age of Onset Hypertension Mother Stroke Mother Alcohol/Drug Father Heart Father Prostate Cancer Brother OB History T3 L3 SAB0 IAB0 Ectopic0 Multiple0 Live Births3 OBJECTIVE ALLERGIES Allergen Reactions Augmentin [Amoxicil* Biaxin [Clarithromy* Hives Vancomycin Itching Current Outpatient Medications Medication Sig amLODIPine-benazepril (LOTREL) 5-10 mg per capsule Take 1 capsule by mouth once daily. loratadine(CLARITIN 10 MG TAB) Take one(1) tablet daily as needed for allergy symptoms. estriol 0.1% cream (CPD) Use 1 g vaginally two times a week. (Patient not taking: Reported on 01/03/2022 ) nystatin (MYCOSTATIN) cream Use four times daily as needed. (Patient not taking: Reported on 12/11/2021 ) TOPROL XL 50 MG 24 HR TAB Take one(1) tablet daily. (Patient not taking: Take one(1) tablet daily.) Current Facility-Administered Medications Medication Dose Route Frequency lidocaine urojet 2 % 6 mL topical gel (XYLOCAINE, GLYDO) 6 mL URETHRAL ONCE (AMB - Up to 30 Days) nitrofurantoin monohydrate and macrocrystal 100 mg cap(s) (MACROBID) 100 mg ORAL ONCE (AMB - Up to 30 Days) Review of Systems Constitutional: Denies weight loss, weight gain, fever Eyes: Negative vision changes ENT/Mouth: No ulcers, sinusitis, tinnitus Cardiovascular: Denies REESE, Edema, palpitations, chest pain Respiratory: Denies wheezing, hemoptysis, SOB, cough Gastrointestinal: Denies diarrhea, bloody stool, constipation Genitourinary: See HPI Musculoskeletal: Denies muscle weakness Skin/breast: Denies discharge, masses, rash, ulcers Neurological: Denies syncope, seizures, numbness Physical Exam BP 138/83 Ht 5' 4 (1.63m) Wt 176 lb (79.8kg) BMI 30.20 kg/(m^2). 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 Women's annual routine gynecological examination - ICD9: V72.31, ICD10: Z01.419 (primary diagnosis) - Completed pelvic and breast exam - Encouraged monthly BSE - Follow up for annual exam in one year. - PAP FLUID CERVICAL SCREENING - ESTHELA SCREENING 2. Routine cervical smear - ICD9: V76.2, ICD10: Z12.4 - Completed pelvic and breast exam - Encouraged monthly BSE - Follow up for annual exam in one year. - PAP FLUID CERVICAL SCREENING 3. Uterine prolapse - ICD9: 618.1, ICD10: N81.4 Consent signed and ready for surgery Chevy Dong DO documented in this encounter [facility] 12-24-2021 Miscellaneous Notes Formattin g of this note might be different from the original. Tried to contact patient,,,,,,,,,,,,, documented in this encounter [facility] 12-11-2021 Note HNO ID: [id number] Author: Aditya Monahan MD Service: ? Author Type: Physician Type: Progress Notes Filed: 12/11/2021 1:44 PM Note Text: NEW PATIENT HISTORY AND PHYSICAL EXAM HISTORY OF PRESENT ILLNESS: Tomeka Goode is a 71 year old female who presents with prolapse started last May, uterine prolapse. Previous oophorectomy Leakage with urgency, especially with walking. Mild SHAUN Nocturia 1-2 Prior to prolapse no bladder issues. No UTI in the past 6 month. Bladder scan and cysto was normal, Dr. Cox. Does not want to do a pessary. No vaginal bleeding Normal pap smears. We reviewed treatment options for her prolapse. She would like to proceed with surgical correction. We discussed abdominal and vaginal approaches. She is very active and we decided to proceed with a laparoscopic colpopexy. We began discussion regarding risk and benefits and the use of mesh material. Her questions were answered regarding surgery and she would like to proceed. REVIEW OF SYSTEMS: GENERAL:No weight loss, malaise or fevers ALLERGIC/IMMUNOLOGIC: no hay fever or drug allergies HEENT:Negative for frequent or significant headaches, No changes in hearing or vision, no nose bleeds or other nasal problems RESPIRATORY: Negative for cough, hemoptysis, wheezing, COPD, dyspnea or shortness of breath CARDIOVASCULAR: Negative for chest pain, leg swelling, hypertension, CHF or palpitations GASTROINTESTINAL: No nausea, vomiting, or diarrhea GENITOURINARY: See HPI MUSCULOSKELETAL: Negative for joint pain or swelling, back pain or muscle pain NEUROLOGIC:Negative for focal numbness or weakness, headaches and dizziness or syncope. SKIN:Negative for lesions, rash, and itching GLUCOSE UA (POCT) Negative 12/11/2021 BILIRUBIN UA (POCT) Negative 12/11/2021 KETONE UA (POCT) Negative 12/11/2021 SPECIFIC GRAVITY UA (POCT) <=1.005 12/11/2021 HEMOGLOBIN/BLOOD UA (POCT) Negative 12/11/2021 PH UA (POCT) 6.5 12/11/2021 PROTEIN UA (POCT) Negative 12/11/2021 UROBILINOGEN UA (POCT) 0.2 12/11/2021 NITRITE UA (POCT) Negative 12/11/2021 LEUKOCYTES UA (POCT) Negative 12/11/2021 COLOR UA (POCT) Light yellow 12/11/2021 CLARITY UA (POCT) Clear 12/11/2021 MEDICATIONS: estriol 0.1% cream (CPD) Use 1 g vaginally two times a week. amLODIPine-benazepril (LOTREL) 5-10 mg per capsule Take 1 capsule by mouth once daily. loratadine(CLARITIN 10 MG TAB) Take one(1) tablet daily as needed for allergy symptoms. nystatin (MYCOSTATIN) cream Use four times daily as needed. TOPROL XL 50 MG 24 HR TAB Take one(1) tablet daily. HISTORIES PAST MEDICAL HISTORY Diagnosis Date - Abdominal pain, generalized right and left side in center - Abdominal pain, left lower quadrant - Diverticulosis of colon (without mention of hemorrhage) - Internal hemorrhoids without mention of complication - Ventral hernia with obstruction FAMILY HISTORY Problem Relation Age of Onset - Alcohol/Drug Father - Heart Father - Hypertension Mother - Stroke Mother PAST SURGICAL HISTORY Procedure Laterality Date - APPENDECTOMY - COLONOSCOPY FLX DX W/COLLJ SPEC WHEN PFRMD 01/26/08 - CORRJ HALLUX VALGUS W/SESMDC W/2 OSTEOT X'S 2 - IMPLANT MESH OPN HERNIA RPR/DEBRIDEMENT CLOSURE 07/01/2005 - LIG/TRNSXJ FLP TUBE ABDL/VAG APPR UNI/BI Tubal ligation - OOPHORECTOMY PARTIAL/TOTAL UNI/BI Oophorectomy - RPR EPIGASTRIC HERNIA INCARCERATED 07/01/2005 Social History Tobacco Use - Smoking status: Never Smoker - Smokeless tobacco: Never Used Substance Use Topics - Alcohol use: Yes Comment: 1 BEER Q WEEK - Drug use: No Physical Exam Ht 162.6 cm (5' 4 ) Wt 77.6 kg (171 lb) BMI 29.35 kg/m? PHYSICAL EXAM: FEMALE Vital signs: Ht 162.6 cm (5' 4 ) Wt 77.6 kg (171 lb) BMI 29.35 kg/m? General Appearance: Normal, No acute distress, well nourished Psych:No signs of depression, anxiety, or agitation. Neuro: Gait normal: Yes SKIN/LYMPH: No rashes noted, no lesions. Respiratory Effort: Normal, no labored breathing Cardiovascular:No extremity swelling varices, edema, pallor, or erythema ABDOMEN: - Liver/spleen: No abnormalities palpable - Hernia: None - Mass: None - Pain on palpation: None - Bladder/Kidney: No abnormalities palpable Extremities:Extremities normal. No deformities, edema, clubbing or skin discoloration. GENITALIA FEMALE EXAM: External Genitalia: Normal, no atrophy, no rash Urethral Meatus: Normal, no prolapse or caruncle Urethra: No mass, no tenderness and no diverticulum. Urethral angle: >30 degrees Stress incontinence on exam: no Bladder:No cystocele, bladder empty, no masses Vagina: Enterocele: no Rectocele: no Cervix: Present without inflammation or discharge Uterus: Uterine prlapse 2 cm beyond the hymen Adnexa: No palpable mass; no cysts; no tenderness Anus/Perineum: Deferred Levator tenderness: no ASSESSMENT/PLAN: (N81.4) Uterine prolapse (primary encounter diagnosis) (N81.11) Midl (more content not included)... [facility] 12-11-2021 History of Presen t illness Narrative NEW PATIENT HISTORY AND PHYSICAL EXAM HISTORY OF PRESENT ILLNESS: Tomeka Goode is a 71 year old female who presents with prolapse started last May, uterine prolapse. Previous oophorectomy Leakage with urgency, especially with walking. Mild SHAUN Nocturia 1-2 Prior to prolapse no bladder issues. No UTI in the past 6 month. Bladder scan and cysto was normal, Dr. Cox. Does not want to do a pessary. No vaginal bleeding Normal pap smears. We reviewed treatment options for her prolapse. She would like to proceed with surgical correction. We discussed abdominal and vaginal approaches. She is very active and we decided to proceed with a laparoscopic colpopexy. We began discussion regarding risk and benefits and the use of mesh material. Her questions were answered regarding surgery and she would like to proceed. REVIEW OF SYSTEMS: GENERAL:No weight loss, malaise or fevers ALLERGIC/IMMUNOLOGIC: no hay fever or drug allergies HEENT:Negative for frequent or significant headaches, No changes in hearing or vision, no nose bleeds or other nasal problems RESPIRATORY: Negative for cough, hemoptysis, wheezing, COPD, dyspnea or shortness of breath CARDIOVASCULAR: Negative for chest pain, leg swelling, hypertension, CHF or palpitations GASTROINTESTINAL: No nausea, vomiting, or diarrhea GENITOURINARY: See HPI MUSCULOSKELETAL: Negative for joint pain or swelling, back pain or muscle pain NEUROLOGIC:Negative for focal numbness or weakness, headaches and dizziness or syncope. SKIN:Negative for lesions, rash, and itching GLUCOSE UA (POCT) Negative 12/11/2021 BILIRUBIN UA (POCT) Negative 12/11/2021 KETONE UA (POCT) Negative 12/11/2021 SPECIFIC GRAVITY UA (POCT) <=1.005 12/11/2021 HEMOGLOBIN/BLOOD UA (POCT) Negative 12/11/2021 PH UA (POCT) 6.5 12/11/2021 PROTEIN UA (POCT) Negative 12/11/2021 UROBILINOGEN UA (POCT) 0.2 12/11/2021 NITRITE UA (POCT) Negative 12/11/2021 LEUKOCYTES UA (POCT) Negative 12/11/2021 COLOR UA (POCT) Light yellow 12/11/2021 CLARITY UA (POCT) Clear 12/11/2021 MEDICATIONS: estriol 0.1% cream (CPD) Use 1 g vaginally two times a week. amLODIPine-benazepril (LOTREL) 5-10 mg per capsule Take 1 capsule by mouth once daily. loratadine(CLARITIN 10 MG TAB) Take one(1) tablet daily as needed for allergy symptoms. nystatin (MYCOSTATIN) cream Use four times daily as needed. TOPROL XL 50 MG 24 HR TAB Take one(1) tablet daily. HISTORIES PAST MEDICAL HISTORY Diagnosis Date Abdominal pain, generalized right and left side in center Abdominal pain, left lower quadrant Diverticulosis of colon (without mention of hemorrhage) Internal hemorrhoids without mention of complication Ventral hernia with obstruction FAMILY HISTORY Problem Relation Age of Onset Alcohol/Drug Father Heart Father Hypertension Mother Stroke Mother PAST SURGICAL HISTORY Procedure Laterality Date APPENDECTOMY COLONOSCOPY FLX DX W/COLLJ SPEC WHEN PFRMD 6/18/08 CORRJ HALLUX VALGUS W/SESMDC W/2 OSTEOT X'S 2 IMPLANT MESH OPN HERNIA RPR/DEBRIDEMENT CLOSURE 07/01/2005 LIG/TRNSXJ FLP TUBE ABDL/VAG APPR UNI/BI Tubal ligation OOPHORECTOMY PARTIAL/TOTAL UNI/BI Oophorectomy RPR EPIGASTRIC HERNIA INCARCERATED 07/01/2005 Social History Tobacco Use Smoking status: Never Smoker Smokeless tobacco: Never Used Substance Use Topics Alcohol use: Yes Comment: 1 BEER Q WEEK Drug use: No Physical Exam Ht 162.6 cm (5' 4 ) Wt 77.6 kg (171 lb) BMI 29.35 kg/m PHYSICAL EXAM: FEMALE Vital signs: Ht 162.6 cm (5' 4 ) Wt 77.6 kg (171 lb) BMI 29.35 kg/m General Appearance: Normal, No acute distress, well nourished Psych:No signs of depression, anxiety, or agitation. Neuro: Gait normal: Yes SKIN/LYMPH: No rashes noted, no lesions. Respiratory Effort: Normal, no labored breathing Cardiovascular:No extremity swelling varices, edema, pallor, or erythema ABDOMEN: - Liver/spleen: No abnormalities palpable - Hernia: None - Mass: None - Pain on palpation: None - Bladder/Kidney: No abnormalities palpable Extremities:Extremities normal. No deformities, edema, clubbing or skin discoloration. GENITALIA FEMALE EXAM: External Genitalia: Normal, no atrophy, no rash Urethral Meatus: Normal, no prolapse or caruncle Urethra: No mass, no tenderness and no diverticulum. Urethral angle: >30 degrees Stress incontinence on exam: no Bladder:No cystocele, bladder empty, no masses Vagina: Enterocele: no Rectocele: no Cervix: Present without inflammation or discharge Uterus: Uterine prlapse 2 cm beyond the hymen Adnexa: No palpable mass; no cysts; no tenderness Anus/Perineum: Deferred Levator tenderness: no ASSESSMENT/PLAN: (N81.4) Uterine prolapse (primary encounter diagnosis) (N81.11) Midline cystocele Plan robotic assisted laparoscopic sacrocolpopexy with supracervical hysterectomy. documented in this encounter [facility] 11-08-2021 Miscellaneous Notes Called spoke to pt no she has never seen you she is scheduled 12/11/21. She just wanted another urologists opinion on the c-estradiol and what you think of it and if she should stay on it until her appt. With you. Told pt we couldn't give any medical advise due to her never being seen here and no records on file. Pt was ok with it and can't wait to see you in December. Pt called in and wants to get second opinion on c-estradiol cream that was put by Dr. doyle from [facility]. Please advise Shivam Sierra MA documented in this encounter [facility] Diagnosis Uterine prolapse- Primary Uterine prolapse without mention of vaginal wall prolapse Uterine prolapse Uterine prolapse without mention of vaginal wall prolapse Midline cystocele Cystocele, midline [facility] Diagnosis Women's annual routine gynecological examination- Primary Routine cervical smear Screening for malignant neoplasm of the cervix Uterine prolapse Uterine prolapse without mention of vaginal wall prolapse Uterine prolapse Uterine prolapse without mention of vaginal wall prolapse Midline cystocele Cystocele, midline [facility] Diagnosis SHAUN (stress urinary incontinence, female)- Primary Female stress incontinence Uterine prolapse Uterine prolapse without mention of vaginal wall prolapse Midline cystocele Cystocele, midline [facility] Diagnosis Stress incontinence- Primary Female stress incontinence Uterine prolapse Uterine prolapse without mention of vaginal wall prolapse Uterine prolapse Uterine prolapse without mention of vaginal wall prolapse Midline cystocele Cystocele, midline [facility] Diagnosis Post-operative state Other postprocedural status [facility] Outpatient Procedure (Routine) - Pending Review Specialty Diagnoses / Procedures Referred By Yaniv torres Referred To Contact [facility] Diagnoses Uterine prolapse Procedures URODYNAMICS JAZZY POST-VOIDING RESIDUAL URINE&/BLADDER CAP Aditya Monahan MD [address] [place] [address] [facility] [address] [place] [address] Referral ID Status Reason Start Date Expiration Date Visits Requested Visits Authorized [id number] Pending Review Auto-Generat ed Referral 12/24/2021 12/24/2022 1 1 [facility] Diagnostic Procedure Only (Routine) - Pending Review Specialty Diagnoses / Procedures Referred By Yaniv torres Referred To Contact [facility] Diagnoses Women's annual routine gynecological examination Procedures ESTHELA SCREENING SCREENING MAMMOGRAPHY BI 2-VIEW BREAST INC CAD Chevy Dong, DO [address] [place] [address] [facility] [address] [place] [address] Referral ID Status Reason Start Date Expiration Date Visits Requested Visits Authorized [id number] Pending Review Auto-Generat ed Referral 01/03/2022 02/02/2023 1 1 [facility] Summary Purpose Family History No Family History Records FoundNo Family History Records FoundNo Family History Records Found Advance Directives No Advanced Directives Records FoundNo Advanced Directives Records FoundNo Advanced Directives Records Found Medications Administered Section Inactive Administered Medications - up to 3 most recent administrations Medication Order MAR Action Action Date Dose Rate Site lidocaine urojet 2 % 6 mL topical gel (XYLOCAINE, GLYDO) 6 mL, URETHRAL, ONCE (UP TO 30 DAYS AMB), 1 dose, On Thu12/24/21 at 1700 Given 01/03/2022 10:45 AM EDT 6 mL nitrofurantoin monohydrate and macrocrystal 100 mg cap(s) (MACROBID) 100 mg, ORAL, ONCE (UP TO 30 DAYS AMB), 1 dose, On Thu12/24/21 at 1700, Swallow whole; DO NOT crush, chew, or open., Please document the antimicrobial indication: Prophylaxis Given 01/03/2022 10:45 AM EDT 100 mg Additional Source Comments Source Comments (unrecognize d section and content) In the event this informatio n is protected by the Federal Confidentiality of Alcohol and Drug Abuse Patient Records regulations: The Federal rules restrict any use of the information to criminally investigate or prosecute any alcohol or drug abuse patient.[facility] the event this information is protected by the Federal Confidentiality of Alcohol and Drug Abuse Patient Records regulations: The Federal rules restrict any use of the information to criminally investigate or prosecute any alcohol or drug abuse patient.[facility] the event this information is protected by the Federal Confidentiality of Alcohol and Drug Abuse Patient Records regulations: The Federal rules restrict any use of the information to criminally investigate or prosecute any alcohol or drug abuse patient.[facility] the event this information is protected by the Federal Confidentiality of Alcohol and Drug Abuse Patient Records regulations: The Federal rules restrict any use of the information to criminally investigate or prosecute any alcohol or drug abuse patient.[facility] the event this information is protected by the Federal Confidentiality of Alcohol and Drug Abuse Patient Records regulations: The Federal rules restrict any use of the information to criminally investigate or prosecute any alcohol or drug abuse patient.[facility] the event this information is protected by the Federal Confidentiality of Alcohol and Drug Abuse Patient Records regulations: The Federal rules restrict any use of the information to criminally investigate or prosecute any alcohol or drug abuse patient.[facility] the event this information is protected by the Federal Confidentiality of Alcohol and Drug Abuse Patient Records regulations: The Federal rules restrict any use of the information to criminally investigate or prosecute any alcohol or drug abuse patient.[facility] the event this information is protected by the Federal Confidentiality of Alcohol and Drug Abuse Patient Records regulations: The Federal rules restrict any use of the information to criminally investigate or prosecute any alcohol or drug abuse patient.[facility] Reason for Visit (unrecogniz ed section and content) Reason Comments New Patient Bladder/uterus prola pse Reason Comments 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, [employer]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, 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 Reason Comments Stress Incontinence Urodynamics Reason Comments Preparations For Surgery Reason Comments Post Op 4 week sx 02/20 Reason Comments no reason given Care Teams (unrecognized sec tion and content) [employer] Relationship Specialty Start Date End Date Ivan Dexter, [address] [place] [id number] PCP - General Family Practice 03/29/18 [employer] Relationship Specialty Start Date End Date Ivan Dexter DO [address] [place], [place] [id number] PCP - General Family Practice 03/29/18 [employer] Relationship Specialty Start Date End Date Ivan Dexter, DO [address] [place], [place] [id number] PCP - General Family Practice 03/29/18 [employer] Relationship Specialty Start Date End Date Ivan Dexter, DO [address] [place], [place] [id number] PCP - General Family Practice 03/29/18 [employer] Relationship Specialty Start Date End Date Ivan eDxter, DO [address] [place], [place] [id number] PCP - General Family Practice 03/29/18 [employer] Relationship Specialty Start Date End Date Ivan Dexter, DO [address] [place], [place] [id number] PCP - General Family Practice 03/29/18 [employer] Relationship Specialty Start Date End Date Ivan Dexter, [address] [place] [address] PCP - General Family Medicine 03/29/18 INFORMATION SOURCE (unrecogn ized section and content) DATE CREATED AUTHOR AUTHOR'S ORGANIZ ATION 05/21/2022 [facility] DATE CREATED AUTHOR AUTHOR'S ORGANIZ ATION 06/29/2022 [facility] FOR RECORDS PERTAINING TO PATIENTS WHO ARE OR HAVE BEEN ENROLLED IN A CHEMICAL DEPENDENCY/SUBSTANCEABUSE PROGRAM, SOME INFORMATION MAY BE OMITTED. This clinical summary was aggregated from multiple sources. Caution should be exercised in using it in the provision of clinical care. This summary normalizes information from multiple sources, and as a consequence, information in this document may materially change the coding, format and clinical context of patient data. In addition, data may be omitted in some cases. CLINICAL DECISIONS SHOULD BE BASED ON THE PRIMARY CLINICAL RECORDS. [facility] [employer] provides no warranty or guarantee of the accuracy or completeness of information in this document.
[2023-10-19] MEDS: Lactated Ringers 1,000 ML 15 ML IV ×2 (06:27→11:52)
--- NOTE | 2023-10-19 06:50 | HP.PCM_ITS ---
History and Physical Date of Admission: 10/19/23 Visit Reasons: Ventral incisional hernia Chief Complaint: possible hernia [employer] Required: No Is patient in pain?: No Allergies clarithromycin [From Biaxin] Allergy (Verified 09/14/23 14:22) Hivesvancomycin Allergy (Verified 09/14/23 14:22) Itchinglatex Adverse Reaction (Mild, Verified 09/14/23 14:22) rashamoxicillin trihydrate [From Augmentin] Adverse Reaction (Verified 09/14/23 14:22) Upset Stomachpotassium clavulanate [From Augmentin] Adverse Reaction (Verified 09/14/23 14:22) Upset Stomach Medications amlodipine 5 mg tablet tablet PO 01/15/22 [History Confirmed 09/14/23] multivitamin (One Daily Multivitamin tablet) 1 tab PO DAILY 08/11/23 [History Confirmed 09/14/23] [facility] Medical History hx of BL leg vein oblation Hypertension Surgical History H/O hernia repair H/O knee surgery H/O oophorectomy H/O tubal ligation History of appendectomy History of bunionectomy History of hysterectomy Hx of endoscopy Family History Other CVA (cerebral vascular accident) Heart disease Social History number of children: 3 current occupational status: employed current occupation: [employer] Smoking Status: Never smoker alcohol intake: current alcohol intake frequency: holidays/special occasions only substance use type: does not use what type of physical activity do you participate in: walking and aerobics frequency: 1-2 times per week seatbelt use: always do you feel safe at home: Yes additional social history: HPI HPI HPI: 73-year-old female was referred by BAILEE Leavitt for surgical consultat ion regarding suspected ventral hernia and a written copy of my surgical consult recommendations will return to her. A reducible abdominal wall wall hernia has been identified. This is felt to represent a recurrence. The patient notes that I previously assisted her with a Epigastric hernia repair. I have an operative note dated July 01, 2005 where because of an incarcerated epigastric ventral hernia I did repair with a small Marlex mesh plug. She demonstrates that incision to me and that appears to be intact. She makes comment that more recently she has what sounds like a laparoscopic assisted vaginal hysterectomy with bladder sling procedure. She points to that incision located midway between the umbilicus and my incision there is clearly an incisional hernia present there. She does not recall whether she has had a previous incision at her umbilicus but there is evidence of a small hernia there. She has evidence of a transverse right lower quadrant incision consistent with remote appendectomy. The new incision that she had related to her hysterectomy is now demonstrating hernia change and progressive enlargement ROS General General: Yes weight change Musc Musculoskeletal: Yes arthritis Cardio Cardiovascular: Yes high blood pressure Gastro Gastrointestinal: Yes acid reflux and Yes hemorrhoids Exam Const General: cooperative, healthy appearing, comfortable and no acute distress HENMT Head: normal to inspection Eyes General: appearance normal, both eyes and all related structures Neck Neck: normal visual inspection Chest Chest palpation & inspection: normal inspection of the chest Resp Effort & Inspection: normal respiratory effort Auscultation: clear to auscultation bilaterally Cardio Rate: regular rate Rhythm: regular rhythm GI Other: Epigastrium has a well-healed transverse incision with just a slight gentle convex appearance. More inferior in the epigastrium there is evidence of a vertical incision related to her hysterectomy. Diffuse fibrofatty fullness extending for at least 5 cm outward. This is incarcerated and not reducible by palpation. Umbilicus has evidence of a very small 5 mm diameter nontender hernia. No particular tissue present Musc Cervical Spine: normal cervical lordosis Skin General: no rashes or lesions noted Neuro General: patient alert, patient awake and patient oriented x3 Extrem General: no calf tenderness Psych Appearance: grossly normal Assessment and Plan Assessment and Plan (1) Ventral incisional hernia without obstruction or gangrene: Status: Acute Plan: Patient has an epigastric ventral incisional hernia that is nonreducible related to her laparoscopic assisted vaginal hysterectomy. She has a small asymptomatic umbilical hernia. I propose for her direct approach to her incisional hernia. Hopefully will be able to place a Ventralex mesh. I have discussed the technique, benefit, risk, alternatives. No guarantees of success been offered. The patient is aware that it could require converting to a complete laparoscopic approach with laparoscopic placement of mesh and bilateral transverses abdominal plane block. She has had an opportunity to ask and have questions answered. We will schedule procedure at her discretion. I appreciate the opportunity of assisting with her surgical care. Plan Copy: Rosemarie Castro NP-C and Dr. Dashawn Suero M.D., F.A.C.S. I have examined the patient and the H&P has been reviewed. There are no clinical changes since date of exam. Jose F Sureo M.D., F.A.C.S.
--- NOTE | 2023-10-19 07:05 | DCINST_ITS ---
Discharge Instructions Procedure General Surgery Diet Discharge Diet: Light diet - advance as tolerated (if you have questions about your diet instructions, please talk to you doctor.) Activity Discharge Activity: May Not Drive (for 3-5 days or while taking narcotic pain medicine.) May shower in (days): 1 Lifting Restrictions: 10 pounds Dressing / Incision Call your doctor if your incision/area has: Continuous Slow Oozing, Sudden Increased Bleeding, Increased Pain/ Swelling, Increased Redness and Foul Smelling Discharge Call your doctor if you observe: Fever of 101 or Higher Suture Line Care: Avoid Pulling/Pushing and Avoid Pinching/Bending Additional Dressing/Incision Instructions:: Change or remove dressing in 4 days. Leave steri-strips in place for 1 week. Follow Up Care Please Follow Up With: Jose F Suero MD When: Call [phone] to make an appointment to be seen in about 10 days. Test Results: Test results from this visit will be discussed in further detail at your follow- up appointment, if applicable. Discharge Plan Admission Attending Provider: Jose F Suero Primary Care Provider: Dashawn Dexter Discharge Orders/Prescriptions Prescriptions: No Action amlodipine 5 mg tablet 5 mg PO DAILY multivitamin [One Daily Multivitamin] Tablet 1 tab PO DAILY aspirin 81 mg capsule 81 mg PO DAILY Referrals / Follow Up: Dashawn Dexter DO [Primary Care Provider] - Disposition Disposition (needs filled in before D/C Order can be placed): Home, Self Care
[2023-10-19] MEDS: Clindamycin 900 MG/50 ML BAG 75 MG IV (07:29)
[2023-10-19] MEDS: Bupivacaine Mpf 0.5% 30 ML VIAL (07:44)
[2023-10-19] MEDS: 0.9% Normal Saline (Pres. free 10 ML Vial (08:36)
[2023-10-19] MEDS: BUPIVACAINE LIPOSOME/PF 20 ML VIAL OPERA.SITE (08:36)
[2023-10-19] MEDS: Bupivacaine 0.25% 30 ML Vial (08:36)
--- NOTE | 2023-10-19 08:59 | OP.PCM_ITS ---
Report of Operation Date of Procedure: 10/19/23 Pre-Operative Diagnosis: Epigastric ventral incisional hernia Umbilical hernia Post-Operative Diagnosis: Same Surgery/Procedure Performed:: Laparoscopic ventral incisional hernia pair with 17.8 x 22.[address] mesh Reference [id number], lot [id number], expiry date 03/06/2024. \Secure strap Lot [id number], expiry date April 2025 Description of Surgical Findings:: Timeout informed consent was obtained. 73-year-old female was taken to the operating placed on the table underwent general endotracheal intubation esthesia. Clindamycin 900 mg were given intravenously preoperatively. Clean procedure. The abdomen was sterilely prepped and draped with chlorhexidine and Ioban draping was performed. At the previous salma spot in the mid epigastric area transverse incision was created after injection of 3 cc of 0.5% Marcaine. Sharp blunt dissection identified the fascia and upon opening the fascia became extraordinary apparent that this was diffusely weak with a [place] cheese type multi defect deformity. So then I approximated part of that incision with simple and [id number] sutures of 0 Nurolon. And a sound catheter was inserted. The abdomen was insufflated with CO2 to a pressure of 10 mmHg pressure. 5 mm trocars were placed 2 on the left and 2 on the right. The falciform ligament was transected using hot scissors. Then I utilized a 17.8 x 22.[address] mesh. I placed 4 corner sutures of 2-0 Prolene. For all the manage placed in side unfurled it making sure that the nonadherent side was down. An IPOM procedure was performed. Using 11 blade and made stab incisions then grainy needle was used to parachute the Prolene up to the abdominal wall. Excellent positioning was achieved. The epigastric hernia defect was covered and and additionally the umbo. I secured the Prolene sutures. I then used secure strap at approximately 2 cm intervals around the periphery and then also centrally to help obliterate any space. Excellent positioning of the mesh was achieved. This on catheter had been removed and that midline fascia closed with simple and [id number] sutures of 0 Nurolon. Very pleased with the results. Greater omentum was placed overlying. The mesh was irrigated with saline. I then performed a transabdominal plane block using Exparel mixed with Marcaine diluted with saline to 100 cc. That was done under laparoscopic visualization bilaterally. The abdomen is allowed to deflated the CO2. Skin edges were approximated interrupted and running subicular 4-0 Monocryl. Steri-Strips Telfa OpSite dressings applied. Sponge and instrument counts were reported to be correct. Specimens none. Drains none. Blood loss minimal. The patient was taken to the recovery room in satisfied condition without apparent complication Jose F Suero M.D., F.A.C.S. Surgeon: Jose F Suero Type of Anesthesia: Block,Therapeutic and General Anesthesiologist: Gordy Diaz
[2023-10-19] MEDS: HYDROcodone Bitartrate/Apap 5/325 Tablet PO (14:43)
[2023-10-19] MEDS: Acetaminophen 325 MG Tablet 650 MG PO (17:13)
[2023-10-19] MEDS: oxyCODONE 5 MG Tablet PO ×2 (17:13→21:14)
--- OUTSIDE RECORDS SUMMARY | 2023-10-19 21:03 | XMS RPT_ITS | CCD ---
Author Name Unknown Address [address] [place] [address] Organization [facility] Care Team Providers Care Gas Stove Servicer Helper Name Role Phone Ivan Dexter DO Primary [...] Unavailable BOLOGNA, ADITYA A Attending Unavailable GUERITA, VIAN A Primary Care Unavailable BOLOGNA, ADITYA A Referring Unavailable BOLOGNA, ADITYA A Admitting Unavailable Allergies Allergy Classification Reported Allergen(s) Allergy Type Date of Onset Reaction(s) Facility (9 sources) Amoxicillin / Clavulanate; Translations: [AMOXICILLIN-POT CLAVULANATE] Drug Allergy 06-27-2005 [facility] Work Phone: (9 sources) Clarithromycin; Translations: [CLARITHROMYCIN] Drug Allergy 11-29-2013 Hives [facility] (9 sources) Vancomycin; Translations: [VANCOMYCIN] Drug Allergy 11-29-2013 Itching [facility] (4 sources) Latex; Translations: [LATEX] Drug Allergy 06-04-2020 Rash [facility] Medications Current Medications Medication Drug Class(es) Dates [...] 162.6 cm Chevy Biats DO Work Phone: [facility] 03-20-2022 10:29-0400 Body weight 85.23 kg Chevy Biats DO Work Phone: [facility] 03-20-2022 10:29-0400 Diastolic blood pressure 87 mm[Hg] Chevy Biats DO Work Phone: [facility] 03-20-2022 10:29-0400 Systolic blood pressure 147 mm[Hg] Chevy Biats DO Work Phone: [facility] 02-11-2022 12:01-0400 Body height 162.6 cm Aditya Monahan MD Work Phone: [facility] 02-11-2022 12:01-0400 Body weight 81.65 kg Aditya Monahan MD Work Phone: [facility] 02-11-2022 12:01-0400 Diastolic blood pressure 92 mm[Hg] Aditya Monahan MD Work Phone: [facility] 02-11-2022 12:01-0400 Systolic blood pressure 160 mm[Hg] Aditya Monahan MD Work Phone: [facility] 01-03-2022 09:31-0400 Body height 162.6 cm Chevy Biats DO Work Phone: [facility] 01-03-2022 09:31-0400 Body weight 79.83 kg Chevy Biats DO Work Phone: [facility] 01-03-2022 09:31-0400 Diastolic blood pressure 83 mm[Hg] Chevy Biats DO Work Phone: [facility] 01-03-2022 09:31-0400 Systolic blood pressure 138 mm[Hg] Chevy Biats DO Work Phone: [facility] 12-11-2021 11:05-0400 Body height 162.6 cm Aditya Monahan MD Work Phone: [facility] 12-11-2021 11:05-0400 Body weight 77.56 kg Aditya Monahan MD Work Phone: [facility] Encounters Encounter Date Encounter Type Care Provider Facility Start: 05-21-[address] Ivan Dexter Facility:[id number] Start: 03-20-2022 End: 03-20-2022 ambulatory IVAN DEXTER Facility:[facility] Start: 03-20-2022 End: 03-20-2022 Patient encounter procedure Chevy Dong DO Work Phone: [facility] Procedures Date Procedure Procedure Detail Performing Clinician Start: 12-11-2021 Urnls dip stick/tabl et rgnt auto w/o microscopy Aditya Monahan MD Work Phone: Start: 01-26-2008 Colonoscopy Aditya berman MD Work Phone: Plan of Treatment Date Care Activity Detail Author Start: 02-21-2025 DIABETES SCREEN DIABETES SCREEN [facility] Start: 02-06-2025 DIABETES SCREEN DIABETES SCREEN [facility] Start: 04-10-2022 Influenza vaccination [facility] Start: 11-02-2021 COVID-19 VACCINE (4 - Booster for Moderna series) COVID-19 VACCINE (4 - Booster for Moderna series) [facility] Start: 08-30-2021 COVID-19 VACCINE (4 - Booster for Moderna series) COVID-19 VACCINE (4 - Booster for Moderna series) [facility] Start: 08-10-2021 ADVANCE DIRECTIVE DISCUSSION ADVANCE DIRECTIVE DISCUSSION [facility] Start: 08-10-2021 DEPRESSION ASSESSMENT DEPRESSION ASSESSMENT [facility] Start: 01-25-2018 Colonoscopy COLONOSCOPY [facility] Start: 01-25-2018 COLORECTAL CANCER SCREENING COLORECTAL CANCER SCREENING [facility] Start: 2014 BONE DENSITY BONE DENSITY [facility] Start: 2014 PNEUMOCOCCAL: 65+ (1 - PCV) PNEUMOCOCCAL: 65+ (1 - PCV) [facility] Start: 2014 PNEUMOVAX AGE 65 AND OVER WITH 5YR LOOKBACK (#1) PNEUMOVAX AGE 65 AND OVER WITH 5YR LOOKBACK (#1) [facility] Start: 1999 SHINGRIX VACCINE (1 of 2) SHINGRIX VACCINE (1 of 2) [facility] Start: 1994 COLOGUARD (FIT-DNA) COLOGUARD (FIT-DNA) [facility] Start: [address] COLONOGRAPHY [facility] Start: 1994 DIABETES SCREEN DIABETES SCREEN [facility] Start: 1994 FECAL OCCULT BLOOD FECAL OCCULT BLOOD [facility] Start: 1994 LIPID SCREEN LIPID SCREEN [facility] Start: 1994 SIGMOIDOSCOPY SIGMOIDOSCOPY [facility] Start: 1989 Mammography MAMMOGRAM [facility] Start: 1968 Urine microalbumin profile DTAP,TDAP,TD (1 - Tdap) [facility] Start: 1967 HEPATITIS C SCREENING HEPATITIS C SCREENING [facility] Start: 1961 Adult depression screening assessment DEPRESSION SCREENING [facility] Start: 1954 COVID-19 VACCINE (1) COVID-19 VACCINE (1) [facility] PAP FLUID CERVICAL SCREENING PAP FLUID CERVICAL SCREENING Lab Routine Women's annual routine gynecological examination Routine cervical smear Ordered: 01/03/2022 [facility] Work Phone: Payers Date Payer Category Payer Medicare MMO MEDIC[place] [id number] 2021-Present [phone] [address] [place] [address] [facility] [id number] 2021 Medicare MMO MEDICARE MMO MEDADVANTAGE [place] [id number] 2021-Present [phone] [address] [place] [address] [facility] [id number] 2021 Unknown [id number] 1950 Unknown [id number] Unknown [id number] Social History Date Type Detail Facility Start: 03-29-2018 Tobacco smoking stat [facility] Never smoked tobacco [facility] Start: 03-29-2018 End: 12-11-2021 Alcohol intake Current drinker of alcohol (finding) [facility] Start: 1950 Sex Assigned At Not on file [facility] Start: 12-01-2021 End: 02-20-2022 Exposure to SARS-CoV-2 (event) Not sure [facility] Start: 03-29-2018 Tobacco use and exposure Smokeless tobacco non-user [facility] Work Phone: Medical Equipment Procedure Code Equipment [...] Type Note Facility 03-20-2022 Note HNO ID: [id number] Author: Chevy Dong DO Service: ? Author [...] 3 months for annual Chevy Dong DO [facility] 03-20-2022 History of Presen t illness Narrative [...] 3 months for annual Chevy Dong DO documented in this encounter [facility] 03-11-2022 Note HNO ID: [id number] Author: Aditya Monahan MD Service: ? Author [...] ASSESSMENT/PLAN: (N81.4) Uterine prolapse (primary encounter diagnosis) [facility] 02-21-2022 Note HNO ID: [id number] Author: Daniele Bailey DO Service: Urology Author [...] later this AM Daniele Bailey, Urology, PGY-5 #[id number] Please page on-call resident with any questions [facility] 02-20-2022 Note HNO ID: [id number] Author: Erica Curran APRN.EQUITY ANALYST Service: Anesthesiology Author Type: Nurse Hvac Sheet Metal Installer Helper Type: Anesthesia Procedure Notes Filed: 02/20/2022 11:54 AM Note Text: ANESTHESIOLOGY PROCEDURE NOTE PIV General Information Procedure Start Time/Medication Administration: 02/20/2022 10:30 AM Patient Location: [facility] EQUITY ANALYST: Erica Curran APRN.EQUITY ANALYST Performed by: EQUITY ANALYST Preparation Sterility Preparation: hand hygiene performed prior to procedure, surgical cap used, mask used, sterile drape used during line insertion, skin prep agent completely dried prior to procedure Site Prep: Chloraprep Procedure Details Indication: need for IV access Needle Size/Type: 20 gauge angiocath Orientation: Right Location: Hand SIGNATURE: Erica Curran APRN.EQUITY ANALYST PATIENT NAME: Tomeka Goode DATE: February 20, 2022 TIME: 11:54 AM CSN: [id number] [facility] 02-20-2022 Note HNO ID: [id number] Author: Erica Curran APRN.EQUITY ANALYST Service: Anesthesiology Author Type: Nurse Hvac Sheet Metal Installer Helper Type: Anesthesia Procedure Notes Filed: 02/20/2022 11:54 AM Note Text: ANESTHESIOLOGY PROCEDURE NOTE PIV General Information Procedure Start Time/Medication Administration: 02/20/2022 11:10 AM Patient Location: [place] Staffing EQUITY ANALYST: Erica Curran APRN.EQUITY ANALYST Performed by: HAILEY Preparation Sterility Preparation: hand hygiene performed prior to procedure, surgical cap used, mask used, sterile drape used during line insertion, skin prep agent completely dried prior to procedure Site Prep: Chloraprep Procedure Details Needle Size/Type: 18 gauge angiocath Orientation: Left Location: Antecubital SIGNATURE: Erica Curran APRN.EQUITY ANALYST PATIENT NAME: Tomeka Goode DATE: February 20, 2022 TIME: 11:53 AM CSN: [id number] [facility] 02-20-2022 Note HNO ID: [id number] Author: Erica Curran APRN.EQUITY ANALYST Service: Anesthesiology Author Type: Nurse Hvac Sheet Metal Installer Helper Type: Anesthesia Procedure Notes Filed: 02/20/2022 11:53 AM Note Text: ANESTHESIOLOGY PROCEDURE NOTE Airway General Information Procedure Start Time/Medication Administration: 02/20/2022 11:25 AM Patient location during procedure: OR Timeout Performed Pre-procedure: timeout performed Consent Obtained: Yes Patient identity confirmed: arm band and patient Staffing EQUITY ANALYST: Erica Curran APRN.EQUITY ANALYST Indications and Patient Condition Preoxygenated: yes Patient position: sniffing Indications for airway management: anesthesia and airway protection anesthesia circuit Method: asleep Final Airway Details Final airway type: endotracheal airway Final Endotracheal Airway: ETT Cuffed: yes Successful intubation technique: direct laryngoscopy Devices used: [employer] Endotracheal tube insertion site: oral Blade: Marisela Blade size: #4 ETT size (mm): 7.0 Measured from: lips Measurement (cm): 22 Placement verified by: chest auscultation and capnometry Cormack-Lehane Classification: grade IIa - partial view of glottis Number of attempts at approach: 1 SIGNATURE: Erica Curran APRN.EQUITY ANALYST PATIENT NAME: Tomeka Goode DATE: February 20, 2022 TIME: 11:52 AM CSN: [id number] [facility] 02-11-2022 Note HNO ID: [id number] Author: Aditya Monahan MD Service: ? Author [...] incontinence (primary encounter diagnosis) (N81.4) Uterine prolapse [facility] 02-11-2022 History of Presen t illness Narrative [...] (N81.4) Uterine prolapse documented in this encounter [facility] 01-03-2022 Note HNO ID: [id number] Author: Sue Fuentes RN Service: ? Author Type: ? Type: Progress Notes Filed: 01/09/2022 4:56 PM Note Text: Tomeka Goode [id number] 1950 January 03, 2022 Diagnoses: Stress urinary [...] January 09, 2022 cc: Aditya Monahan MD [facility] 01-03-2022 Note HNO ID: [id number] Author: Chevy Dong, DO Service: ? 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 - PAP FLUID CERVICAL SCREENING - [facility] SCREENING 2. Routine cervical smear - ICD9: V76.2, ICD10: Z12.4 - Completed pelvic and breast exam - Encouraged monthly BSE - Follow up for annual exam in one year. - PAP FLUID CERVICAL SCREENING 3. Uterine prolapse - ICD9: 618.1, ICD10: N81.4 Consent signed and ready for surgery Chevy Dong DO [facility] 01-03-2022 History of Presen t illness Narrative Tomeka Tiffany Russel [id number] 1950 January 03, 2022 Diagnoses: Stress urinary [...] Aditya Monahan MD documented in this encounter [facility] 01-03-2022 Instructions Sue Fuentes RN - 01/03/2022 10:28 AM EDT POST PROCEDURE INSTRUCTIONS Tomeka Goode January 03, 2022 Increase your fluid intake. FOLLOW UP APPOINTMENT: 02/11/2022 at 1130 with Aditya Monahan MD in the [address] [place] [address] office. WHEN TO CALL THE DOCTOR: If you develop fever (over 101 degrees) or chills. If you cannot urinate or empty your bladder. If you develop symptoms of a urinary tract infection such as burning or pain with urination, increased frequency of urination or foul smelling urine If you have any other questions or problems. 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 Tried to contact patient,,,,,,,,,,,,, documented in this encounter [facility] 12-11-2021 Note HNO ID: [id number] Author: Aditya Monahan MD Service: ? Author [...] diagnosis) (N81.11) Midl (more content not included)... [facility] 12-11-2021 History of Presen t illness [...] with supracervical hysterectomy. documented in this encounter [facility] 11-08-2021 Miscellaneous Notes Called spoke to pt [...] that was put by Dr. doyle from [facility]. Please advise Shivam Sierra MA documented in this encounter [facility] Diagnosis Uterine prolapse- Primary Uterine prolapse without mention of vaginal wall prolapse Uterine prolapse Uterine prolapse without mention of vaginal wall prolapse Midline cystocele Cystocele, midline [facility] Diagnosis Women's annual routine gynecological examination- Primary Routine cervical smear Screening for malignant neoplasm of the cervix Uterine prolapse Uterine prolapse without mention of vaginal wall prolapse Uterine prolapse Uterine prolapse without mention of vaginal wall prolapse Midline cystocele Cystocele, midline [facility]* Diagnosis SHAUN (stress urinary incontinence, female)- Primary Female stress incontinence Uterine prolapse Uterine prolapse without mention of vaginal wall prolapse Midline cystocele Cystocele, midline [facility]* Diagnosis Stress incontinence- Primary Female stress incontinence Uterine prolapse Uterine prolapse without mention of vaginal wall prolapse Uterine prolapse Uterine prolapse without mention of vaginal wall prolapse Midline cystocele Cystocele, midline [facility] Diagnosis Post-operative state Other postprocedural status [facility] Outpatient Procedure (Routine) - Pending Review Specialty Diagnoses / Procedures Referred By Yaniv torres Referred To Contact [facility] Diagnoses Uterine prolapse Procedures URODYNAMICS JAZZY POST-VOIDING RESIDUAL URINE&/BLADDER CAP Aditya Monahan MD [address] [place] [address] [facility] [address] [place] [address] Referral ID Status Reason Start Date Expiration Date Visits Requested Visits Authorized [id number] Pending Review Auto-Generat ed Referral 12/24/2021 12/24/2022 1 1 [facility] (narrative)* Diagnostic Procedure Only (Routine) - Pending Review Specialty Diagnoses / Procedures Referred By Yaniv torres Referred To Contact [facility] Diagnoses Women's annual routine gynecological examination Procedures ESTHELA SCREENING SCREENING MAMMOGRAPHY BI 2-VIEW BREAST INC CAD Chevy Dong, DO [address] [place] [address] [facility] [address] [place] [address] Referral ID Status Reason Start Date Expiration Date Visits Requested Visits Authorized [id number] Pending Review Auto-Generat ed Referral 01/03/2022 02/02/2023 1 1 [facility] Summary Purpose Family History No Family History [...] or prosecute any alcohol or drug abuse patient.[facility] the event this information is protected by the Federal Confidentiality of Alcohol and Drug Abuse Patient Records regulations: The Federal rules restrict any use of the information to criminally investigate or prosecute any alcohol or drug abuse patient.[facility] System[facility] the event this information is protected by the Federal Confidentiality of Alcohol and Drug Abuse Patient Records regulations: The Federal rules restrict any use of the information to criminally investigate or prosecute any alcohol or drug abuse patient.[facility] System[facility] the event this information is protected by the Federal Confidentiality of Alcohol and Drug Abuse Patient Records regulations: The Federal rules restrict any use of the information to criminally investigate or prosecute any alcohol or drug abuse patient.[facility] the event this information is protected by the Federal Confidentiality of Alcohol and Drug Abuse Patient Records regulations: The Federal rules restrict any use of the information to criminally investigate or prosecute any alcohol or drug abuse patient.[facility] System[facility] the event this information is protected by the Federal Confidentiality of Alcohol and Drug Abuse Patient Records regulations: The Federal rules restrict any use of the information to criminally investigate or prosecute any alcohol or drug abuse patient.[facility] System[facility] the event this information is protected by the Federal Confidentiality of Alcohol and Drug Abuse Patient Records regulations: The Federal rules restrict any use of the information to criminally investigate or prosecute any alcohol or drug abuse patient.[facility] System[facility] the event this information is protected by the Federal Confidentiality of Alcohol and Drug Abuse Patient Records regulations: The Federal rules restrict any use of the information to criminally investigate or prosecute any alcohol or drug abuse patient.[facility] Reason for Visit (unrecogniz ed section and content) Reason Comments New Patient Bladder/uterus prola pse Reason Comments 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, HAND 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, 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 Reason Comments Stress Incontinence Urodynamics Reason Comments Preparations For Surgery Reason Comments Post Op 4 week sx 02/20 Reason Comments no reason given Care Teams (unrecognized sec tion and content) Gas Stove Servicer Helper Relationship Specialty Start Date End Date Ivan Dexter, [address] [place] [id number] PCP - General Family Practice 03/29/18 Gas Stove Servicer Helper Relationship Specialty Start Date End Date Ivan Dexter DO [address] [place], [place] [id number] PCP - General Family Practice 03/29/18 Gas Stove Servicer Helper Relationship Specialty Start Date End Date Ivan Dexter, DO [address] [place], [place] [phone] PCP - General Family Practice 03/29/18 Gas Stove Servicer Helper Relationship Specialty Start Date End Date Ivan Dexter, DO [address] [place], [place] [id number] PCP - General Family Practice 03/29/18 Gas Stove Servicer Helper Relationship Specialty Start Date End Date Ivan Dexter, DO [address] [place], [place] [phone] PCP - General Family Practice 03/29/18 Gas Stove Servicer Helper Relationship Specialty Start Date End Date Ivan Dexter, DO [address] [place], [place] [id number] PCP - General Family Practice 03/29/18 Gas Stove Servicer Helper Relationship Specialty Start Date End Date Ivan Dexter, [address] [place] [address] PCP - General Family Medicine 03/29/18 INFORMATION SOURCE (unrecogn ized section and content) DATE CREATED AUTHOR AUTHOR'S ORGANIZ ATION 05/21/2022 [facility] DATE CREATED AUTHOR AUTHOR'S ORGANIZ ATION 06/29/2022 [facility] FOR RECORDS PERTAINING TO PATIENTS WHO [...] BE BASED ON THE PRIMARY CLINICAL RECORDS. [facility] [employer] provides no warranty or guarantee of the accuracy or completeness of information in this document.
[2023-10-20 00:54] VITALS: BP 124/68; PULSE 65; RESP 16; TEMP 36.6; O2SAT 94; BMI 31.8
[2023-10-20] MEDS: oxyCODONE 5 MG Tablet PO ×2 (01:06→05:27)
[2023-10-20] MEDS: Acetaminophen 325 MG Tablet 650 MG PO (01:06)
[2023-10-20 04:45] VITALS: BP 126/67; PULSE 64; RESP 16; TEMP 36.5; O2SAT 92; O2SAT 95; BMI 31.8
[2023-10-20 05:28] VITALS: O2SAT 95
[2023-10-20 05:48] VITALS: BMI 31.7
--- NOTE | 2023-10-20 06:38 | PCM.PN.SRG ---
Subjective Subjective Pt is doing well. Was able to walk in halls without oxygen. No nausea. Comfortable enough at rest Objective Data Objective Data Vital Signs: Vital Signs Temp Pulse Resp BP Pulse Ox O2 Del Method O2 Flow Rate 97.7 F L 64 16 126/67 H 95 Room Air 2 10/20/23 04:45 10/20/23 04:45 10/20/23 04:45 10/20/23 04:45 10/20/23 05:28 10/20/23 05:28 10/20/23 04:45 FiO2 2 10/19/23 14:45 Oxygen Flow Rate (L/min) 2 Oxygen Delivery Method Room Air Weight: 185 lb 13.595 oz Body Mass Index (BMI) 31.7 Intake & Output: Intake and Output for Last 24 Hours 10/18/23 10/19/23 10/20/23 23:59 23:59 23:59 Intake Total 2131.25 / 2531.25 400 / 400 Balance 2131.25 / 2531.25 400 / 400 Lab / Micro Data 10/06/23 12:26 10/06/23 12:26 Physical Exam Const oriented x3 Resp normal respiratory effort and clear to auscultation bilaterally Cardio regular rate and regular rhythm GI GI Narrative: Softly distended, OpSite dressings clean and dry, occasional bowel sounds, appropriately tender Assessment & Plan Assessment/Plan (1) Ventral incisional hernia without obstruction or gangrene: PLAN: It appears that the patient has been able to be weaned from her oxygen. She is mobilizing. Will advance to full liquid diet. Anticipate hopeful recheck a little bit later today with plan discharge.
[2023-10-20 09:08] VITALS: BP 118/69; PULSE 61; RESP 18; TEMP 37.1; O2SAT 94
[2023-10-20 09:17] VITALS: O2SAT 94
[2023-10-20] MEDS: amLODIPine 5 MG Tablet PO (09:22)
[2023-10-20] MEDS: Senna/Docusate Sodium 1 Tablet PO (09:22)
[2023-10-20] MEDS: Magnesium Chloride 64 MG Delay Rel.Tablet 128 MG PO (09:22)
[2023-10-20] MEDS: Aspirin 81 MG TAB.CHEW PO (09:22)
[2023-10-20] MEDS: Multivitamins,Therapeutic Tablet 1 TABLET PO (09:23)
--- NOTE | 2023-10-20 10:39 | PHA.DC.MC.R ---
Pharmacy [facility] has performed discharge medication reconciliation and counseling for this patient. 1. NORCO 5/325MG 1T PO Q6H PRN PAIN The patient's discharge medication list was reviewed for discrepancies and discrepancies were resolved. The patient was counseled on the following discharge medications and changes in medications for homegoing were reviewed. The Reason for Use, instructions for use, and potential side effects were reviewed for all new medications. The patient's questions regarding all of their medications were answered. The patient was able to verbally demonstrate an understanding of their discharge medications. Medications at Discharge Home Medications amlodipine 5 mg tablet 5 mg PO DAILY 01/15/22 multivitamin (One Daily Multivitamin tablet) 1 tab PO DAILY 08/11/23 aspirin 81 mg capsule 81 mg PO DAILY 10/06/23 hydrocodone-acetaminophen 5-325mg 5mg-325mg 1 tab PO Q6H PRN pain 2 days #6 tabs 10/19/23
--- NOTE | 2023-10-20 10:50 | CASEMGMT ---
FREDDY CM into pt room, pt sitting up in chair. Pt denies any homegoing needs. She states she is I at home. She has a walker should she need it.
--- NOTE | 2023-10-20 15:43 | NURSING ---
computer downtime approx 1155-time of discharge. Written/verbal discharge instructions provided, teachback.
--- NOTE | 2023-10-20 15:50 | CHAPLAIN ---
Type of Pastoral Visit _x__ Initial Visit ___ Follow-up Visit ___ On-call Visit ___ General Patient Visit ___ Spiritual Assessment ___ Family Conference ___ Bereavement ___ Rapid Response ___ Code Blue ___ Other (describe below) Pastoral Care Referral From _x__ Patient ___ Family ___ Nurse ___ Physician ___ Aeronautical Drafter ___ Preparing Box Tender ___ Other (describe below) Sacrament/Intervention _x__ Active listening ___ Anointing ___ Jewish ___ Bereavement ___ Communion ___ Nafisa exploration ___ ___ Life review _x__ Prayer ___ Reconciliation ___ Sacrament of Sick ___ Supportive presence ___ Wedding ___ Other (describe below) Pastoral Comments patient is waiting for discharge and is looking forward to time of recovery and quiet; pt is optimistic and has no other concerns at this time; family members are with her; pt welcomes a time to talk and for prayer to be spoken
== END 2023-10-20 13:56 | disposition home or self-care (01) ==
LOC: SDC 16:03 → MS3 16:03
PROVIDERS: Admitting Provider Surgery; PCP Family Medicine; Referring Provider Surgery; Visit Provider Surgery
PROC: 0WQF4ZZ Repair Abdominal Wall, Percutaneous Endoscopic Approach (ICD-10-PCS; CPT 49615; principal; 2023-10-19 07:10)
DX: K43.2 Incisional hernia without obstruction or gangrene (principal); I10 Essential (primary) hypertension; Z79.899 Other long term (current) drug therapy; Z86.718 Personal history of other venous thrombosis and embolism
CPT/HCPCS: 49615; 00752; 36415; 80048; 85027; 93005; 99221; 99252; J7120; C1781; G0378; G0463; J2405; J3490

== ENCOUNTER → 2023-12-01 | Outpatient (CLI) | payer MEDICARE, SELFPAY ==
[2023-12-01 16:17] LABS: Absolute Lymphocyte Count 1.25 X10^3/uL (0.83-4.51); Absolute Neutrophil Count 3.2 X10^3/uL (2.0-7.7); Basophil# 0.04 X10^3/uL; Basophil% 0.8 % (0-1); Eosinophils% 5.7 % (0-5); Hematocrit 41.9 % (37-47); Lymphocyte # 1.25 X10^3/ul; Lymphocyte % 23.7 % (19-41); Mean Corp Hgb Conc 33.4 g/dL (32-36); Mean Corpuscular Hgb 30.1 pg (27.0-32.0); Mean Corpuscular Volume 90.1 fL (81-99); Mean Platelet Vol. 10.6 fl (6.2-12.0); Monocyte# 0.44 X10^3/uL; Monocyte% 8.3 % (0-10); NRBC Flagged by Analyzer 0 % (0-5); Neutrophil # 3.22 X10^3/uL (2.7-7.7); Neutrophil % 61.1 % (47-70); Platelet Count 197 K/mm3 (150-450); RBC Distribution Width CV 14.7 % (11.6-14.6); RBC Distribution Width SD 48.7 fl (35.1-43.9); Red Blood Count 4.65 M/mm3 (4.2-5.4); White Blood Count 5.3 K/mm3 (4.4-11.0)
[2023-12-01 16:45] LABS: AST(SGOT) 32 U/L (15-37); Alanine Aminotransfer ALT/SGPT 36 U/L (13-56); Albumin, Serum 3.7 g/dL (3.2-5.0); Alkaline Phosphatase 96 U/L (45-117); Anion Gap 5 (5-15); BUN 18 mg/dL (7-18); BUN/Creat Ratio 23.7 RATIO (10-20); Bilirubin, Direct 0.26 mg/dL (0.00-0.30); Calcium,Total 9.1 mg/dL (8.5-10.1); Chloride 110 mmol/L (98-107); Cholesterol 156 mg/dL (200); Creatinine, Serum 0.76 mg/dL (0.55-1.02); EST Glomerular Filtration Rate 79 mL/min (>60); Est Glom Filt Rate - Afr Amer 95 mL/min (>60); Globulin 3.7 g/dL (2.2-4.2); Glucose 89 mg/dL (74-106); High Density Lipoprotein 41 mg/dL; LDH 185 U/L (84-246); Phosphorus 3.3 mg/dL (2.5-4.9); Potassium 3.5 mmol/L (3.5-5.1); Protein, Total 7.4 g/dL (6.4-8.2); Sodium Level 141 mmol/L (136-145); Triglycerides 143 mg/dL; Uric Acid 8.1 mg/dL (2.6-6.0); Very Low Density Lipoprotein 29 mg/dL (5-40)
[2023-12-02 12:54] LABS: Color, Urine Yellow (Yellow); Glucose, Dipstick Normal (Normal); Ketone-Dipstick Negative (Negative); Leukocyte Esterase-Dipstick 500 /ul (Negative); Nitrite-Dipstick Negative (Negative); Occult Blood-Urine Negative /ul (Negative); Protein-Dipstick Negative (Negative); Urine Bilirubin Dipstick Negative (Negative); Urine Clarity Sl. Cloudy (Clear); Urine Urobilinogen Normal (Normal)
== END | disposition home or self-care (01) ==
LOC: BFHLAB 13:47
PROVIDERS: PCP Family Medicine; Visit Provider Family Medicine
DX: Z00.00 Encounter for general adult medical examination without abnormal findings (principal)

== ENCOUNTER → 2023-12-14 | Outpatient (CLI) | payer MEDICARE, SELFPAY ==
--- NOTE | 2023-12-14 18:34 | STRESSREP ---
Stress Test Report Exercise stress test. 73-year-old lady with a history of chest pain Stress protocol: Resting EKG demonstrates normal sinus rhythm with a rate of 71 bpm resting blood pressure is 158/90 mmHg. The patient exercised according to the regular Quan protocol for a total duration of 6 minutes attaining a maximum heart rate of 127 bpm which was 86% of maximum predicted heart rate; the maximum workload was 7 metabolic equivalents. At rest there were no ST or T wave changes noted to suggest ischemia and at peak exercise upsloping ST changes only were noted which did not meet the criteria for ischemia. No clinical angina was noted the test was terminated due to the target heart rate being achieved/fatigue. The peak blood pressure was 178/90 mmHg. Rate-pressure product was 22,600. Conclusion: Exercise stress test with no EKG criteria for ischemia at a moderate workload.
== END | disposition home or self-care (01) ==
LOC: CVS 12:07
PROVIDERS: PCP Family Medicine; Referring Provider Family Medicine; Visit Provider Family Medicine
DX: R07.9 Chest pain, unspecified (principal)
CPT/HCPCS: 93017

== ENCOUNTER → 2023-12-15 | Outpatient (CLI) | payer MEDICARE, SELFPAY ==
--- NOTE | 2023-12-15 12:14 | US_ITS ---
EXAM: US SOFT TISSUES OF THE NECK CLINICAL INDICATION: R POST CERVICAL LYMPHADENOPATHY TECHNIQUE: Real-time ultrasound scan of the soft tissues of the neck with image documentation. COMPARISON: No relevant prior studies available. FINDINGS: No evidence of a mass or fluid collection. No foreign body. Two level 5 cervical lymph nodes are noted measuring 1.3 x 0.7 x 0.4 cm and is 0.8 x 0.6 x 0.3 cm. Normal internal architecture. US/Head/Neck Soft Tissue IMPRESSION: Reactive right posterior cervical lymph nodes. Electronically Signed: Carlos Slater MD at 13:02 EDT ,
== END | disposition home or self-care (01) ==
LOC: US 12:13
PROVIDERS: PCP Family Medicine; Referring Provider Family Medicine; Visit Provider Family Medicine
DX: R59.0 Localized enlarged lymph nodes (principal)
CPT/HCPCS: 76536